=== PATIENT | male | born 1955 | race African-American/Black ===

== ENCOUNTER 2022-03-25 18:48 | Inpatient (IN) | payer MEDICARE, MEDICAID, SELFPAY ==
[2022-03-25] VITALS (13 sets, daily range): BP systolic 113–129; BP diastolic 86–98; PULSE 100–126; RESP 10–34; TEMP 36.4; O2SAT 95–100
--- NOTE | ~2022-03-25 | XR_ITS ---
EXAMINATION: XR abdomen NG/feed tube insert DATE: 03/27/2022 01:30 INDICATION: Nasogastric tube placement. TECHNIQUE: A supine view of the abdomen was obtained. COMPARISON: None. FINDINGS: The lower abdomen and right lateral aspect of the abdomen are excluded. The nasogastric tub e tip is in the stomach. IMPRESSION: 1. Nasogastric tube tip in the stomach. Reviewed, dictated and finalized at location A.
--- NOTE | ~2022-03-25 | XR_ITS ---
EXAMINATION: XR chest 1V portable Exam Date/Time: 03/25/2022 20:34 CDT HISTORY: dyspnea Comparison: None available. RESULT: Lines, tubes, and devices: None. Lungs and pleura: Clear. Cardiomediastinal silhouette: Enlarged heart. Other: No acute osseous or upper abdominal finding. IMPRESSION: Cardiomegaly. Reviewed, dictated and finalized at location K. IMPRESSION: Cardiomegaly.
--- NOTE | ~2022-03-25 | XR_ITS ---
EXAMINATION: XR chest 1V portable DATE: 04/04/2022 06:15 INDICATION: Respiratory failure. TECHNIQUE: A single frontal view of the chest was obtained. COMPARISON: Chest single view 04/03/2022 FINDINGS: The patient is rotated to his right. There are small pleural effusions. There are airspace opacities in all lung zones bilaterally with a perihilar and basilar predominance. No pneumothorax. C ardiomegaly is noted. The endotracheal tube tip is 5.7 cm above the nikita. The nasogastric tube tip is in the stomach. A right internal jugular central venous catheter is seen with tip at the superior cavoatrial junction. A right upper extremity peripherally inserted central venous catheter (PICC) is seen with tip in the right atrium. IMPRESSION: 1. Diffuse lung disease with worsening at right lung base, consistent with pulmonary edema versus pne umonia. 2. Small pleural effusions with worsening on the right. 3. Cardiomegaly. Reviewed, dictated and finalized at location A. IMPRESSION: 1. Diffuse lung disease with worsening at right lung base, consistent with pulm onary edema versus pneumonia. 2. Small pleural effusions with worsening on the right. 3. Cardiomegaly.
--- NOTE | ~2022-03-25 | XR_ITS ---
EXAMINATION: XR chest ET placement DATE: 03/27/2022 01:30 INDICATION: Intubation. TECHNIQUE: A single frontal view of the chest was obtained on 2 radiographs. COMPARISON: Chest single view 03/26/2022 FINDINGS: There are airspace opacities in all lung zones bilaterally, right worse than left. No pleur al effusion or pneumothorax. Left lateral costophrenic angle is excluded. Cardiomegaly is noted. The endotracheal tube tip is 3.2 cm above the nikita. IMPRESSION: 1. Worsened diffuse lung disease, consistent with pulmonary edema or less likely pneumonia. 2. Cardiomegaly. Reviewed, dictated and finalized at location A. IMPRESSION: 1. Worsened diffuse lung disease, consistent with pulmonary edema or less likel y pneumonia. 2. Cardiomegaly.
--- NOTE | ~2022-03-25 | XR_ITS ---
EXAMINATION: XR chest 1V portable Exam Date/Time: 03/26/2022 22:35 CDT HISTORY: sob Comparison: 03/25/2022. RESULT: Lines, tubes, and devices: None. Lungs and pleura: New, ill-defined diffuse reticular and patchy airspace opacities. Cardiomediastinal silhouette: Stable cardiomegaly. Other: No acute osseous or upper abdominal finding. IMPRESSION: Pulmonary opacities likely represent interstitial edema. Infection not excluded. Reviewed, dictated and finalized at location K. IMPRESSION: Pulmonary opacities likely represent interstitial edema. Infection not excluded .
--- NOTE | ~2022-03-25 | CT_ITS ---
EXAMINATION: CT diagnostic chest wo con DATE: 03/28/2022 12:12 INDICATION: Respiratory failure TECHNIQUE: Computed tomography (CT) of the chest was performed without intravenous contrast. The dose -length product (DLP) was 739.69 mGy-cm. Automated exposure control and iterative reconstruction tech nique were employed. COMPARISON: None FINDINGS: There are interstitial and airspace opacities throughout the lungs. More focal opacities ar e present in the lower lobes. There are small pleural effusions. No pneumothorax is identified. Cardi omegaly is noted. A right upper extremity PICC ends with its tip in the proximal right atrium. A naso gastric tube is followed as far as the stomach. The endotracheal tube is in adequate position. There is a stent in the left main coronary artery. There is mild bilateral hilar lymphadenopathy, likely re active. Diffuse edema is seen in the anterior chest wall, likely related to cardiopulmonary resuscita tion. There is mild thoracic spondylosis. IMPRESSION: 1. Diffuse lung disease with more focal airspace opacities seen in the lower lobes, consistent with p ulmonary edema and/or pneumonia. 2. Cardiomegaly. 3. Small pleural effusions. Reviewed, dictated and finalized at location A. IMPRESSION: 1. Diffuse lung disease with more focal airspace opacities seen in the lower lo bes, consistent with pulmonary edema and/or pneumonia. 2. Cardiomegaly. 3. Small pleural effusions.
--- NOTE | ~2022-03-25 | XR_ITS ---
EXAMINATION: XR chest 1V portable DATE: 04/06/2022 06:05 INDICATION: Respiratory failure. TECHNIQUE: A single frontal view of the chest was obtained. COMPARISON: Chest single view 04/05/2022 FINDINGS: There are small pleural effusions. There are airspace opacities in all lung zones bilateral ly with a lower lung predominance. No pneumothorax. Cardiac megaly is noted. The endotracheal tube ti p is 3.4 cm above the nikita. The nasogastric tube tip is beyond the inferior margin of the radiograp h, but at least to the stomach. A right internal jugular central venous catheter is seen with tip at the superior cavoatrial junction. A right upper extremity peripherally inserted central venous cathet er (PICC) is seen with tip at the superior cavoatrial junction. IMPRESSION: 1. Stable diffuse lung disease, consistent pulmonary edema versus pneumonia. 2. Small pleural effusions with worsening on the right. 3. Cardiomegaly. Reviewed, dictated and finalized at location A.
--- NOTE | ~2022-03-25 | CT_ITS ---
EXAMINATION: CT brain wo con DATE: 04/02/2022 12:39 INDICATION: Anoxic brain injury. TECHNIQUE: Computed tomography (CT) of the head was performed without intravenous contrast. The mA wa s adjusted according to patient size. Iterative reconstruction technique was employed. The dose-lengt h product was 605.33 mGy-cm. COMPARISON: Head CT 03/28/2022 FINDINGS: There are old lacunar infarcts in the left basal ganglia. There are scattered areas of low attenuation in the cerebral white matter. There is no intracranial hemorrhage, acute infarction, or a bnormal intracranial mass lesion. The ventricles are normal in size. There is mild mucosal thickening in the paranasal sinuses. There are trace bilateral mastoid effusions. The orbits are normal. IMPRESSION: 1. Old lacunar infarcts in the left basal ganglia. 2. Stable mild nonspecific cerebral white matter disease, which likely represents chronic small vesse l ischemic disease. Reviewed, dictated and finalized at location A. IMPRESSION: 1. Old lacunar infarcts in the left basal ganglia. 2. Stable mild nonspecific cerebral white matter disease, which likely represen ts chronic small vessel ischemic disease.
--- NOTE | ~2022-03-25 | XR_ITS ---
EXAMINATION: XR chest 1V portable DATE: 04/03/2022 05:55 INDICATION: Respiratory failure. TECHNIQUE: A single frontal view of the chest was obtained. COMPARISON: Chest single view 04/02/2022 FINDINGS: There are airspace opacities in the mid and lower lung zones with a perihilar and basilar p redominance. There is a small left pleural effusion. No pneumothorax. Cardiomegaly is noted. The endo tracheal tube tip is 7.3 cm above the nikita. The nasogastric tube tip is beyond the inferior margin of the radiograph, but at least to the stomach. A right upper extremity peripherally inserted central venous catheter (PICC) is seen with tip in the proximal right atrium. A right internal jugular centr al venous catheter is seen with tip at the superior cavoatrial junction. IMPRESSION: 1. Stable airspace opacities in the mid and lower lung zones, consistent with pulmonary edema versus pneumonia. 2. Small left pleural effusion. 3. Cardiomegaly. Reviewed, dictated and finalized at location A. IMPRESSION: 1. Stable airspace opacities in the mid and lower lung zones, consistent with p ulmonary edema versus pneumonia. 2. Small left pleural effusion. 3. Cardiomegaly.
--- NOTE | ~2022-03-25 | US_ITS ---
EXAMINATION: US renal BI DATE: 03/28/2022 17:00 INDICATION: Elevated creatinine TECHNIQUE: Multiple grayscale and Doppler ultrasound images of the kidneys were obtained. COMPARISON: None. FINDINGS: The right kidney measures 11.5 x 5.0 x 5.0 cm. The left kidney measures 12.4 x 5.8 x 5.7 cm . The kidneys demonstrate normal parenchymal echogenicity. There is no hydronephrosis. The bladder is decompressed by a Cortez catheter. Cholelithiasis is noted. IMPRESSION: 1. Normal kidneys without hydronephrosis. 2. Cholelithiasis noted. Reviewed, dictated and finalized at location A.
--- NOTE | ~2022-03-25 | XR_ITS ---
XR chest port-a-cath/central 03/30/2022 08:33 Indication: Dialysis catheter placement Procedure: AP portable chest Comparison: Comparison to multiple prior studies sequentially, with oldest reviewed study dated 03/28. Findings: Endotracheal tube tip 1.3 cm above the niikta. NG tube in the stomach. Interval placement o f right IJ large-bore catheter, tip in the SVC. PICC line tip in the SVC. Cardiomegaly with progressi on of diffuse bilateral airspace disease, likely edema. Small pleural effusions. No pneumothorax. Impression: 1: Interval progression of diffuse bilateral airspace disease, compatible with edema. 2: Small pleural effusions. Reviewed, dictated and finalized at location A. Impression: 1: Interval progression of diffuse bilateral airspace disease, compatible with edema. 2: Small pleural effusions.
--- NOTE | ~2022-03-25 | XR_ITS ---
EXAMINATION: XR chest 1V portable DATE: 04/07/2022 07:02 INDICATION: Respiratory failure TECHNIQUE: frontal view of the chest was obtained. COMPARISON: Chest radiograph dated 04/06/2022 FINDINGS: Endotracheal tube tip 7.4 cm above the nikita. Nasogastric tube extends below the left hemidiaphragm with distal tip collimated off the study. Right upper extremity peripherally inserted central venous catheter (PICC) and large bore right internal jugular central venous catheter, both with distal tips at the caudal superior vena cava. Improvement in opacities in the bilateral lower lung zones which includes small bilateral pleural eff usions and associated atelectasis. No pneumothorax. Cardiomegaly. IMPRESSION: 1. Decreasing opacities in bilateral lower lung zones which could represent improving atelectasis, pu lmonary edema, pneumonia or some combination thereof. 2. Small bilateral pleural effusions. 3. Cardiomegaly. Reviewed, dictated and finalized at location A. IMPRESSION: 1. Decreasing opacities in bilateral lower lung zones which could represent imp roving atelectasis, pulmonary edema, pneumonia or some combination thereof. 2. Small bilateral pleural effusions. 3. Cardiomegaly.
--- NOTE | ~2022-03-25 | XR_ITS ---
XR chest 1V portable 03/30/2022 06:01 Indication: Respiratory failure Procedure: AP portable chest Comparison: Comparison to multiple prior studies sequentially, with oldest reviewed study dated 03/27. Findings: Endotracheal tube tip 1.5 cm above the nikita. Cardiomegaly. There is pulmonary edema. Smal l left pleural effusion. NG tube tip in the stomach. PICC line tip in the SVC. No pneumothorax. Impression: 1: Cardiomegaly with mild interstitial edema. Reviewed, dictated and finalized at location A. Impression: 1: Cardiomegaly with mild interstitial edema.
--- NOTE | ~2022-03-25 | XR_ITS ---
EXAMINATION: XR chest 1V portable DATE: 03/29/2022 05:56 INDICATION: Respiratory failure. TECHNIQUE: A single frontal view of the chest was obtained on 2 radiographs. COMPARISON: Chest single view 03/28/2022, chest CT 03/28/2022 FINDINGS: There are airspace opacities in all left lung zones with a perihilar and left basilar predo minance. There are hazy airspace opacities in right lung. No pleural effusion or pneumothorax. Cardio megaly is noted. The endotracheal tube tip is 5.2 cm above the nikita. The nasogastric limits. A righ t upper extremity peripherally inserted central venous catheter (PICC) is seen with tip at the superi or cavoatrial junction. IMPRESSION: 1. Diffuse lung disease with improvement on the left, consistent with pulmonary edema versus pneumoni a. 2. Cardiomegaly. Reviewed, dictated and finalized at location A. IMPRESSION: 1. Diffuse lung disease with improvement on the left, consistent with pulmonary edema versus pneumonia. 2. Cardiomegaly.
--- NOTE | ~2022-03-25 | XR_ITS ---
EXAMINATION: XR chest 1V portable DATE: 04/01/2022 05:31 INDICATION: Respiratory failure. TECHNIQUE: A single frontal view of the chest was obtained. COMPARISON: Chest single view 03/31/2022, chest CT 03/28/2022 FINDINGS: There are airspace opacities in all lung zones bilaterally. There are small pleural effusio ns. No pneumothorax. Cardiomegaly is noted. The endotracheal tube tip is 1.4 cm above the nikita. The nasogastric tube tip is beyond the inferior margin of the radiograph, but at least to the stomach. A right internal jugular central venous catheter is seen with tip in the proximal right atrium. A righ t upper extremity peripherally inserted central venous catheter (PICC) is seen with tip at the superi or cavoatrial junction. IMPRESSION: 1. Diffuse lung disease with worsening at left lung base, consistent with pulmonary edema versus pneu monia. 2. Small pleural effusions. 3. Cardiomegaly. Reviewed, dictated and finalized at location A. IMPRESSION: 1. Diffuse lung disease with worsening at left lung base, consistent with pulmo nary edema versus pneumonia. 2. Small pleural effusions. 3. Cardiomegaly.
--- NOTE | ~2022-03-25 | XR_ITS ---
XR chest 1V portable 03/31/2022 06:14 Indication: Respiratory failure Procedure: AP portable chest Comparison: Comparison to multiple prior studies sequentially, with oldest reviewed study dated 03/28. Findings: Endotracheal tube tip 3.5 cm above the nikita. NG tube in the stomach. Right IJ central antonio ous catheter tip in the SVC. Pulmonary edema. Small left pleural effusion. No pneumothorax. Impression: 1: Cardiomegaly with unchanged pulmonary edema. Reviewed, dictated and finalized at location A. Impression: 1: Cardiomegaly with unchanged pulmonary edema.
--- NOTE | ~2022-03-25 | XR_ITS ---
EXAMINATION: XR chest PICC line DATE: 03/27/2022 08:44 INDICATION: Central line placement. TECHNIQUE: A single frontal view of the chest was obtained. COMPARISON: Chest single view at 1:07 AM FINDINGS: The lung bases are excluded. There are airspace opacities throughout the lungs bilaterally. No pleural effusion or pneumothorax. Cardiomegaly is noted. The endotracheal tube tip is 5.1 cm abov e the nikita. A right upper extremity peripherally inserted central venous catheter (PICC) is seen wi th tip at the superior cavoatrial junction. IMPRESSION: 1. PICC tip at the superior cavoatrial junction. 2. Diffuse lung disease, consistent with pulmonary edema versus pneumonia. 3. Cardiomegaly. Reviewed, dictated and finalized at location A.
--- NOTE | ~2022-03-25 | XR_ITS ---
EXAMINATION: XR chest 1V portable DATE: 04/02/2022 05:29 INDICATION: Infiltrates. TECHNIQUE: A single frontal view of the chest was obtained. COMPARISON: Chest single view 04/01/2022 FINDINGS: There are airspace opacities in all lung zones bilaterally. No pleural effusion or pneumoth orax. Cardiomegaly is noted. The endotracheal tube tip is 4.3 cm above the nikita. The nasogastric tu be tip is in the stomach. A right upper extremity peripherally inserted central venous catheter (PICC ) is seen with tip in the proximal right atrium. A right internal jugular central venous catheter is seen with tip in the proximal right atrium. IMPRESSION: 1. Stable diffuse lung disease, consistent with pulmonary edema versus pneumonia. 2. Cardiomegaly. Reviewed, dictated and finalized at location A. IMPRESSION: 1. Stable diffuse lung disease, consistent with pulmonary edema versus pneumoni a. 2. Cardiomegaly.
--- NOTE | ~2022-03-25 | XR_ITS ---
EXAMINATION: XR chest 1V portable DATE: 04/05/2022 05:53 INDICATION: Respiratory failure TECHNIQUE: frontal view of the chest was obtained. COMPARISON: Chest radiograph dated 04/04/2022 FINDINGS: Endotracheal tube tip 4.3 cm above the nikita. Large-bore right internal jugular central venous hari ter with distal tip near the superior cavoatrial junction. Nasogastric tube with proximal side-port i n the body of the stomach and distal tip collimated off the study. Right upper extremity peripherally inserted central venous catheter (PICC) tip at the caudal superior vena cava. Opacities in bilateral mid and lower lung zones with slight improvement in aeration at the lung bases . No pneumothorax. Cardiomegaly. IMPRESSION: 1. Interval improvement in likely small bilateral pleural effusions. 2. Persistent opacities in the bilateral mid and lower lung zones consistent with pulmonary edema asia sarah pneumonia. 3. Cardiomegaly. Reviewed, dictated and finalized at location A. IMPRESSION: 1. Interval improvement in likely small bilateral pleural effusions. 2. Persistent opacities in the bilateral mid and lower lung zones consistent wi th pulmonary edema versus pneumonia. 3. Cardiomegaly.
--- NOTE | ~2022-03-25 | XR_ITS ---
EXAMINATION: XR chest 1V portable DATE: 03/28/2022 05:23 INDICATION: Respiratory failure. TECHNIQUE: A single frontal view of the chest was obtained. COMPARISON: Chest single view 03/27/2022 FINDINGS: There are airspace opacities in all lung zones bilaterally, left worse than right. No pleur al effusion or pneumothorax. Cardiomegaly is noted. The endotracheal tube tip is 6.6 cm above the car carmelita. The nasogastric tube tip is beyond the inferior margin of the radiograph, but at least to the st omach. A right upper extremity peripherally inserted central venous catheter (PICC) is seen with tip at the superior cavoatrial junction. IMPRESSION: 1. Diffuse lung disease with improvement on the right, consistent with pulmonary edema versus pneumon ia. 2. Cardiomegaly. Reviewed, dictated and finalized at location A. IMPRESSION: 1. Diffuse lung disease with improvement on the right, consistent with pulmonar y edema versus pneumonia. 2. Cardiomegaly.
--- NOTE | ~2022-03-25 | XR_ITS ---
XR chest 1V portable DATE: 03/28/2022 09:23 INDICATION: Respiratory failure TECHNIQUE: Portable AP chest on 03/28/2022 at 0918 hours COMPARISON: 03/28/2022 portable AP chest at 0503 hours FINDINGS: ET tube tip is 6.4 cm above nikita; ideal range is 2-5 cm. Right upper extremity PIC catheter tip overlies superior cavoatrial area. NG tube is noted passing into the stomach. Cardiomegaly. Aortic arch calcification, aortic unfolding. There is pulmonary vascular congestion and redistribution. There is mild prominence of the minor fissure suggesting subpleural edema. There are bilateral predominantly central and lower lung zone infiltrates which may be due to pulmonary edema. Pneumonia or aspiration pneumonitis are not excluded. No pleural effusion or pneumothorax is evident. Aortic arch calcification, aortic unfolding. IMPRESSION: Congestive heart failure and probable pulmonary edema. Pneumonia is not excluded. ET tube 6.4 cm above nikita; ideal range is 2-5 cm. Right upper extremity PIC catheter tip near superior cavoatrial junction NG tube in stomach Reviewed, dictated and finalized at location B.
--- NOTE | ~2022-03-25 | CT_ITS ---
EXAMINATION: CT brain wo con INDICATION: Cardiac arrest COMPARISON: None TECHNIQUE: Standard unenhanced head CT. The dose-length product (DLP) was 605.33 mGy-cm. The mA was a djusted according to patient size. Iterative reconstruction technique was employed. FINDINGS: There is no acute intraparenchymal hemorrhage. No evidence of mass lesion. There is subtle area of low attenuation in the medial aspect of the left parietal lobe. 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 There is mild periventricular and subcortical hypodensity probably related to sm all vessel ischemic disease. There is mild prominence of the sulci and ventricles related to cerebral atrophy. Intracranial calcified cerebral atherosclerosis is noted. There are no extra-axial collecti ons. There is no mass effect or midline shift. The orbits and soft tissues are unremarkable. There is mild mucosal thickening of the paranasal sinuses. IMPRESSION: 1. Areas of prior infarction with subtle area of low attenuation in the medial aspect of the left par ietal lobe which could reflect an early infarct. 2. Age related findings. Reviewed, dictated and finalized at location A. IMPRESSION: 1. Areas of prior infarction with subtle area of low attenuation in the medial aspect of the left parietal lobe which could reflect an early infarct. 2. Age related findings.
--- NOTE | 2022-03-25 19:00 | ECG_ITS ---
Measurements Intervals Hunter Rate: 125 P: CO: 0 QRS: -56 QRSD: 136 T: 108 QT: 325 QTc: 470 Interpretive Statements ATRIAL FLUTTER/TACHYCARDIA WITH RAPID VENTRICULAR RESPONSE LEFT AXIS DEVIATION INTRAVENTRICULAR CONDUCTION DELAY BORDERLINE R WAVE PROGRESSION, ANTERIOR LEADS VOLTAGE CRITERIA FOR LVH INFERIOR INFARCT, AGE INDETERMINATE ST-T WAVE ABNORMALITY IN HIGH LATERAL LEADS- CONSIDER ISCHEMIA ABNORMAL ECG NO PREVIOUS ECG AVAILABLE FOR COMPARISON Electronically Signed On 03-25-2022 20:46:54 CDT by Carlitos Leos D.O.
--- NOTE | 2022-03-25 19:36 | ED.GENADULT ---
HPI - General Adult General Chief complaint: Shortness of Breath/Dyspnea Stated complaint: SOB, AFIB/RVR Time Seen by Provider: 03/25/22 18:56 History of Present Illness HPI narrative: This is a 66-year-old male with history of coronary artery disease presenting to ED for palpitations. Patient says that he was riding his bike up a hill when suddenly he started having palpitations out and diaphoretic, and became short of breath. At that time he said under a tree 3 years since her here and rested in which she felt better. At no point did he have chest pain. and EMS arrived to evaluate the patient today was found have a heart rate around proximally 250. On route to the hospital he self converted back to a rate of 120. At this time the patient is feeling better and has no complaints. Related Data Allergies Allergy/AdvReac Type Severity Reaction Status Date / Time No Known Allergies Allergy Verified 03/25/22 19:02 Review of Systems Review of Systems: CONSTITUTIONAL: Denies night sweats. EYES: No eye pain ENT: Denies rhinorrhea CARDIOVASCULAR: Denies palpitations RESPIRATORY: Denies hemoptysis GASTROINTESTINAL: Denies hematemesis GENITOURINARY: Denies hematuria. SKIN: Denies rash MUSCULOSKELETAL: Denies myalgia. NEUROLOGIC: Denies weakness. PSYCHIATRIC: Denies delusions Exam Narrative: APPEARANCE: No apparent distress. The patient is awake during the interview. Head atraumatic. EYES: PERRLA/EOMI, NOSE: Normal no drainage NECK: Supple, Trachea midline RESPIRATORY: CTAB, No increased work of breathing. CARDIOVASCULAR: S1S2 appreciated , tachycardic, no peripheral edema ABDOMINAL: Soft, nontender, nondistended, MUSCULOSKELETAl: No obvious deformities NEURO: Alert. Moving 4/4 extremities SKIN:: Warm, dry. Normal color PSYCHIATRIC: Normal affect Course Vital Signs Vital signs: Vital Signs Temperature 97.5 F L 03/25/22 18:47 Pulse Rate 125 H 03/25/22 18:47 Respiratory Rate 18 03/25/22 18:47 Blood Pressure 118/92 H 03/25/22 18:47 Pulse Oximetry 100 03/25/22 18:47 Oxygen Delivery Room Air 03/25/22 18:47 Temperature 97.5 F L 03/25/22 18:47 Pulse Rate 102 H 03/25/22 23:36 Respiratory Rate 20 03/25/22 20:31 Blood Pressure 119/92 H 03/25/22 23:36 Pulse Oximetry 98 03/25/22 20:31 Oxygen Delivery Room Air 03/25/22 18:47 Medical Decision Making MDM Narrative Medical decision making narrative: this is a 66-year-old male presents the ED after an episode of palpitations with difficulty breathing. His EKG from EMS was interpreted as follows. EKG interpretation: Rhythm: Supraventricular Tachycardia, Rate 248 , Wolf -Left, NV - Not visible, QRS Wide, QTC indeterminatel, T waves -indeterminate , ST Segments -Indeterminate Final interpretations: SVT with aberrant conduction sinus rhythm the paper was hypotensive with blood pressure of 88/54. The patient self converted to: EKG interpretation: Rhythm A-flutter, Rate 125, Wolf -leftward, NV -[normal], QRS wide, QTC 470ms, T waves - T-wave inversions in the high lateral leads, ST Segments - [Negative for concerning elevations] Final interpretations: 2:1 A-flutter patient's laboratory workup was significant for an elevated BNP at 2280. The patient does not have any clinical signs of heart failure at this time. His troponin was negative. The rest of his lab work was within acceptable limits. COVID was negative. Patient was given 10 mg of IV diltiazem and monitored. His heart rate did not respond. He is given another 10 mg IV diltiazem without response. My interpretation residential monitor this point is still 2-1 a flutter with a rate of 120. Patient was started on a Cardizem drip. Patient will be admitted to the hospital for management of his a flutter and evaluation by Cardiology. Vital Signs Vital Signs: Vital Signs Temperature 97.5 F L 03/25/22 18:47 Pulse Rate 125 H 03/25/22 18:47 Respiratory Rate 18
[2022-03-25 20:07] LABS: SARS-CoV-2 RNA PCR Negative
[2022-03-25 20:17] LABS: Basophils Percent Auto 0.6 % (0.2-1.2); Eosinophils Absolute Auto 0.2 K/mm3 (0-0.3); Eosinophils Percent Auto 2.6 % (0-4.4); Hemoglobin 12.6 g/dL (14.0-18.0); Immature Granulocyte Absolute 0.03 K/mm3 (0.00-0.031); Immature Granulocyte Percent A 0.5 % (0-0.5); Lymphocytes Absolute Auto 0.86 K/mm3 (0.9-3.2); Lymphocytes Percent Auto 13.2 % (18.3-44.2); Mean Corpuscular HGB Conc 33.2 g/dl (32-36); Mean Corpuscular Hemoglobin 25.5 pg (26-34); Mean Corpuscular Volume 76.9 fl (80-100); Mean Platelet Volume 9.8 fl (7.4-10.4); Monocytes Absolute Auto 0.6 K/mm3 (0.1-0.6); Monocytes Percent Auto 9.1 % (2.6-8.5); Neutrophils Absolute Auto 4.8 K/mm3 (1.3-6.7); Platelet Count Result 230 k/mm3 (150-375); Red Blood Count 4.94 M/mm3 (4.6-6.20); Red Cell Distribution Width 16.6 % (11.5-14.5); White Blood Count 6.5 K/mm3 (4.5-10.0)
[2022-03-25 20:20] LABS: Lactic Acid Reflex 1.1 mmol/L (0.7-2.0)
[2022-03-25 20:22] LABS: Alanine Aminotransferase 81 U/L (6-50); Albumin Level 3.1 g/dL (3.5-5.1); Alkaline Phosphatase 81 U/L (38-126); Anion Gap 9 mmol/L (8-16); Aspartate Amino Transferase 49 U/L (17-59); Bilirubin,Total 0.8 mg/dL (0.2-1.3); Blood Urea Nitrogen 15 mg/dL (9-20); Calcium 7.5 mg/dL (8.4-10.2); Carbon Dioxide 24 mmol/L (22-30); Chloride 107 mmol/L (98-107); Estimated Glomerular Filt Rate > 60; Glucose 118 mg/dL (65-110); Magnesium 1.8 mg/dL (1.6-2.3); Potassium 3.4 mmol/L (3.4-5.0); Sodium 140 mmol/L (137-145)
[2022-03-25 20:24] LABS: INR 2.7
[2022-03-25 20:25] LABS: Partial Thromboplastin Time 35.2 SECONDS (22.3-36.8)
[2022-03-25 20:29] LABS: NT Pro B Type Natriuretic Pept 2280 pg/mL (5-100)
[2022-03-25 20:33] LABS: Troponin I 0.015 ng/mL (0.000-0.034)
[2022-03-25] MEDS: dilTIAZem HCl INJ 25 MG/5 ML VIAL 10 MG IV PUSH ×2 (20:52→21:56)
[2022-03-25] MEDS: SODIUM CHLORIDE 0.9% IV 1,000 ML 999 ML IV CONT ×2 (20:52→22:05)
[2022-03-25] MEDS: dilTIAZem 100 MG/100 ML 100 MG/100 ML BAG IV CONT (23:36)
[2022-03-25 23:44] LABS: Troponin I 0.031 ng/mL (0.000-0.034)
--- NOTE | 2022-03-25 23:54 | PM.IMHP ---
H&P: HPI History of Present Illness Date/Time: 03/25/22 23:54 Chief Complaint: Chest discomfort. Narrative: This is a 66-year-old male with past medical history significant for hypertension, systolic heart failure, coronary artery disease, former smoker patient was brought to the emergency room after having an episode of near syncope while he was riding his bike and failed fatigue tired short of breath and with chest discomfort and lightheaded as well EMS was called and he was found to have a heart rate in the 200 patient was spontaneously converted to a slower heart rate which showed atrial fibrillation/flutter this the rhythm upon patient's arrival to emergency room patient received a bolus Cardizem and his rhythm was better controlled was not started on Cardizem drip and admitted to IMU. Patient had been in his usual state of health up until this. Denies any fevers, chills rigors, cough ,sputum production,PND ,orthopnea, leg swelling, pedal swelling. Preliminary workup was significant for EKG with atrial flutter with rapid ventricular response a chest x-ray showed cardiomegaly. Patient is been admitted for further evaluation management and treatment. Review of Systems Review of Systems: Shortness of breath, fatigue, chest discomfort. Constitutional: Constitutional: Denies chills, Denies fever(s), Denies malaise, Denies night sweats, Denies poor appetite, Denies weakness and Reports weight gain Eyes: Eyes: Denies change in vision ENT: Denies dysphagia, Denies vertigo, Denies dizziness and Denies odynophagia Cardiovascular: Cardiovascular: Denies chest pain, Denies pedal edema, Denies claudication, Reports lightheadedness, Denies radiating jaw, neck or arm pain, Reports dyspnea and Reports dyspnea on exertion Respiratory: Respiratory: Denies chest congestion, Denies cough, Denies excessive phlegm production, Denies pain on inspiration, Denies dyspnea and Denies dyspnea on exertion Gastrointestinal: Gastrointestinal: Denies abdominal pain, Denies dyspepsia, Denies heartburn, Denies nausea and Denies vomiting Genitourinary: Genitourinary: Reports no additional male genitourinary complaints, Reports as per HPI and Denies dysuria Musculoskeletal: Musculoskeletal: Denies back pain and Denies joint swelling Integumentary/Breasts: Skin/Breast: Denies rash Neurologic: Denies vertigo, Denies dizziness, Denies syncope, Denies focal weakness and Denies Sensory deficit (Neuro) Psychiatric: Psychiatric: Reports no additional psychiatric complaints and Reports as per HPI Endocrine: Endocrine: Denies cold intolerance, Denies flushing, Denies heat intolerance, Denies polyphagia, Denies polydipsia and Denies palpitations Hematologic/Lymphatic: Hematologic/Lymphatic: Reports no additional hematologic/lymphatic complaints and Reports as per HPI Allergic/Immunologic: Allergic/Immunologic: Reports no additional allergic/immunologic complaints and Reports as per HPI PMFSH Past Medical History Medical History (Updated 03/27/22 @ 02:15 by Suzanne Bunn MD) CAD (coronary artery disease) CHF (congestive heart failure) History of stroke Family History Family History (Updated 03/26/22 @ 03:10 by Aby Vanegas RN) Mother Cerebrovascular accident Congestive heart failure Hypertension Social History Social History (Updated 03/26/22 @ 17:33 by Karlee Coats MD) Social History: 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 Single. Has 3 children, 1 in [place] into in [place]. Lives with is sister. Smoking packs per day: 0.5 Smoking cigarettes per day: 10.0 Years smoked: 17 Smoking pack-years: 8.50 Smoking status: Former smoker Tobacco type: cigarettes Second hand tobacco smoke exposure: Yes Alcohol intake: former Substance use: former Substance use type: crack/cocaine Last use: 2010 Spiritual care concerns: No Meds Home Medications and Allergies Home Medications Medica
[2022-03-26] VITALS (32 sets, daily range): BP systolic 96–145; BP diastolic 64–99; PULSE 87–156; RESP 15–31; TEMP 36.1–36.9; O2SAT 91–100; BMI 32.4
--- NOTE | 2022-03-26 | ECHO_ITS ---
Patient Info Name: Rod Joyce Age: 66 years : 1955 Gender: Male Ht: 69 in Wt: 222 lbs BSA: 2.25 m2 HR: 92 bpm BP: 98 / 73 mmHg Heart Rhythm: Atrial Fibrillation Exam Date: 03/26/2022 4:42 PM Exam Location: [facility] Patient Status: Outpatient Admit Date: 03/26/2022 Staff Ordering Physician: Del Gonsales MD Head Gauge Unit Operator: Micah Hope RDCS Attending Provider: Suzanne Bunn MD Exam Type: CA echo doppler color flow Study Info Indications - congestive heart failure - atrial fibrillation Complete two-dimensional, color flow and Doppler transthoracic echocardiogram is performed with contrast to opacify the left ventricle and to improve the deliniation of the left ventricle endocardial borders. Summary 1. Left ventricular systolic function is severely reduced, estimated at <15%. 2. Right ventricular systolic function is reduced. 3. Left atrial chamber dimension is severely enlarged. 4. There is severe mitral valve regurgitation. Left Ventricle There is severe global hypokinesis with akinesis of the apex. Left ventricular chamber dimension is severely enlarged. Left ventricular systolic function is severely reduced, estimated at <15%. There is no increased left ventricular wall thickness. There is no thrombus visualized in the left ventricle. Right Ventricle Right ventricular chamber dimension is normal. Right ventricular systolic function is reduced. Left Atria Left atrial chamber dimension is severely enlarged. Right Atria Right atrial chamber dimension is mildly enlarged. Aortic Valve The aortic valve is trileaflet. There is no aortic valve stenosis. There is mild aortic valve regurgitation. Pulmonic Valve The pulmonic valve is not well visualized. There is trace pulmonic regurgitation. Mitral Valve There is no mitral valve stenosis. There is severe mitral valve regurgitation. Tricuspid Valve The tricuspid valve leaflets are not well visualized. There is moderate tricuspid valve regurgitation. Pericardium/Pleural There is no pericardial effusion. Inferior Vena Cava Dilated inferior vena cava with no collapse upon inspiration consistent with Empty right atrial pressure, Empty. Aorta The aortic root size at the sinus of Valsalva is normal. The prox ascending aorta size is mildly dilated. Left Ventricular Outflow Tract Name Value Normal LVOT 2D LVOT Diameter 2.1 cm LVOT Doppler LVOT Peak Gradient 3 mmHg LVOT Mean Gradient 2 mmHg LVOT VTI 10 cm LVOT VTI/AV VTI Ratio 0.7 LVOT Stroke Volume 35 ml LVOT CO 4.3 l/min LVOT CI 1.9 l/min/m2 Mitral Valve Name Value Normal MV Doppler
[2022-03-26 00:45] LABS: Glucose Point of Care 98 mg/dl (65-105)
--- NOTE | 2022-03-26 03:38 | PC.NURSE ---
This patient, Rod Joyce, was admitted to IMU Room 201-01. Patient/family oriented to hospital policies and general routines including ID bracelet, bed and alarms, visiting hours, pain management, procedures, bathroom and other care routines, personal items, smoking policy, room service/diet, and visiting hours. Information on how to activate the Rapid Response Team has been discussed. Patient/Family are encouraged to report perceived risks to care and to ask questions if they do not understand what they are told or what they should do.
[2022-03-26] MEDS: dilTIAZem 100 MG/100 ML 100 MG/100 ML BAG 15 MG IV CONT ×2 (08:43→17:05)
--- NOTE | 2022-03-26 13:33 | PM.IMPN ---
Progress Note: A&P Assessment and Plan (1) Atrial flutter: Code(s): I48.92 - Unspecified atrial flutter Status: Acute (2) JANIE (acute kidney injury): Code(s): N17.9 - Acute kidney failure, unspecified Status: Acute (3) CAD (coronary artery disease): Code(s): I25.10 - Atherosclerotic heart disease of [place] coronary artery without angina pectoris Status: Acute (4) CHF (congestive heart failure): Code(s): I50.9 - Heart failure, unspecified Status: Acute (5) Microcytic anemia: Code(s): D50.9 - Iron deficiency anemia, unspecified Status: Acute Plan On admission, patient was complaining of palpitations. EKG showed atrial flutter with a rate of 125. He did have ST T wave changes in high lateral leads. Troponins are negative X2. BNP is 2280. Chest x-ray was clear but did show cardiomegaly. He does have a history of heart failure but no echo available here. Patient is on diltiazem at 15 mg an hour with reasonably well controlled heart rate but patient's blood pressure is low. Patient is compliant with anticoagulation. He may need cardioversion. We will consult Cardiology further evaluation. Resume Coumadin. Resume Lipitor and Plavix. Will hold his Coreg, Lasix and hydralazine at this time. He does take Tradjenta but this could be related to his heart failure and not diabetes. 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 Will check TSH. Daily INR. Check Echo. Subjective Date/time seen: 03/26/22 13:33 Interval history: 66yo male with CAD, pAFib and CHF here for palpitations. Patient has a history of coronary disease with stent placement in 2019. He was found to have what sounds like atrial fibrillation with associated heart failure symptoms. He underwent cardioversion in 2020. He denies having palpitations prior to this admission. No complaints of chest pain shortness of breath. Patient is on Coumadin at home at 5 mg. He feels well today. No complaints. His customer quality engineer is Dr Dixon in [place]. Patient believes he has sickle cell trait. Exam Narrative: AF 97.8 98/73 109 22 97% ra Gen - NARD standing at the side of the bed Chest - CTA bilaterally, nml RR CV - irregularly irregular. Tele showing AFib/flutter with RVR at times Abd - Soft, NT/ND, Positive BS Ext - No pedal edema Psych - Nml mood and affect Skin - Warm and dry Objective Data Vital Signs Vital Signs: Vital Signs - 24 hr 03/25/22 18:47 03/25/22 19:01 03/25/22 19:16 Temperature 97.5 F L Pulse Rate 125 H 116 H 117 H Respiratory Rate 18 18 10 L Blood Pressure 118/92 H 119/90 123/97 H Pulse Oximetry 100 97 97 Oxygen Delivery Room Air 03/25/22 20:01 03/25/22 20:31 03/25/22 23:36 Temperature Pulse Rate 114 H 123 H 102 H Respiratory Rate 16 20 Blood Pressure 129/86 115/98 H 119/92 H Pulse Oximetry 96 98 Oxygen Delivery 03/25/22 21:45 03/25/22 22:06 03/25/22 22:18 Temperature Pulse Rate 112 H 100 119 H Respiratory Rate 23 H 26 H 30 H Blood Pressure Pulse Oximetry 95 97 Oxygen Delivery 03/25/22 22:31 03/25/22 22:45 03/25/22 23:05 Temperature Pulse Rate 126 H 120 H 114 H Respiratory Rate 34 H 24 H 28 H Blood Pressure 113/94 H Pulse Oximetry Oxygen Delivery 03/25/22 23:30 03/26/22 00:46 03/26/22 02:15 Temperature Pulse Rate 113 H 102 H 115 H Respiratory Rate 15 27 H 26 H Blood Pressure 126/90 Pulse Oximetry 97 95 96 Oxygen Delivery 03/26/22 02:27 03/26/22 01:00 03/26/22 02:32 Temperature Pulse Rate 123 H 122 H 125 H Respiratory Rate 15 Blood Pressure 123/78 128/95 H 113/91 H Pulse Oximetry 96 Oxygen Delivery 03/26/22 02:58 03/26/22 02:56 03/26/22 03:00 Temperature 97.0 F L Pulse Rate 118 H 117 H Respiratory Rate 18 Blood Pressure 110/89 Pulse Oximetry 97 Oxygen Delivery Room Air 03/26/22 04:00 03/26/22 04:00 03/26/22 04:00 Temperature 98.
[2022-03-26 14:32] LABS: Anion Gap 10 mmol/L (8-16); Blood Urea Nitrogen 16 mg/dL (9-20); Calcium 7.9 mg/dL (8.4-10.2); Carbon Dioxide 22 mmol/L (22-30); Chloride 108 mmol/L (98-107); Estimated CRCL calculation 59 ml/min; Estimated Glomerular Filt Rate > 60; Glucose 126 mg/dL (65-110); Magnesium 2.1 mg/dL (1.6-2.3); Potassium 3.8 mmol/L (3.4-5.0); Sodium 140 mmol/L (137-145)
[2022-03-26 14:39] LABS: INR 2.3; Prothrombin Time 24.9 Seconds (11.1-14.7)
[2022-03-26 15:24] LABS: Iron 65 ug/dL (49-181)
[2022-03-26 15:34] LABS: Percent Iron Saturation 22 % (20-50)
--- NOTE | 2022-03-26 16:34 | PM.CNCAR ---
Assessment and Plan Assessment and plan (1) Tachycardia: Code(s): R00.0 - Tachycardia, unspecified Status: Acute Assessment and Plan: Patient found to have a somewhat wide complex tachycardia in the field, rate 248 beats per minute. Most likely an atrial flutter although ventricular tachycardia cannot be completely excluded. He was remarkably stable with this rhythm although hypotensive. Will likely discuss w/ EP (2) Atrial flutter: Code(s): I48.92 - Unspecified atrial flutter Status: Acute Assessment and Plan: Atrial flutter RVR, heart rate in the 120s. Has been chronically anticoagulated with warfarin, therapeutic INR, states compliance Change Cardizem to amiodarone Will need to reduce the warfarin dose Cardioversion tomorrow if the patient does not pharmacologically convert. (3) Acute on chronic systolic CHF (congestive heart failure): Code(s): I50.23 - Acute on chronic systolic (congestive) heart failure Status: Acute Assessment and Plan: Patient is developed acute systolic CHF, probably acute on chronic, aggravated by a flutter RVR. Start IV furosemide 40 mg IV push b.i.d. (4) Cardiomyopathy: Code(s): I42.9 - Cardiomyopathy, unspecified Status: Acute Assessment and Plan: Preliminary echo report suggests severe cardiomyopathy. Nnot sure if this is chronic or acute due to the extremely rapid heart rate the patient experienced yesterday and left ventricular stunning. Will see if I can find any old records, and/or discussed with Dr. Boogie tomorrow (5) Mitral regurgitation: Code(s): I34.0 - Nonrheumatic mitral (valve) insufficiency Status: Acute Assessment and Plan: Preliminary echo report suggests significant mitral regurgitation (6) CAD (coronary artery disease): Code(s): I25.10 - Atherosclerotic heart disease of [place] coronary artery without angina pectoris Status: Acute Assessment and Plan: History of CAD and stent in 2019, stable with no angina, even with a heart rate near 250 beats per minute. Minimal troponin spill with this episode, ACS unlikely. History of Present Illness History of Present Illness Consult date/time: 03/26/22 16:34 Reason For Visit: A-Flutter with RVR Narrative: Rod Joyce is a 66-year-old male whom I was asked to see at the request of Dr. Gonsales for my advice and opinion regarding his arrhythmia/atrial flutter in consultation. The patient is normally followed by Dr. Boogie at [facility], in [place]. He was last seen about a month ago, stable. He has a history of a stent in 2019 and in 2020 he had a cardioversion for AFib (?irregular heartbeat). He has been chronically anticoagulated with warfarin and has done well. He denies any history of <del>a</del> weak heart muscle, but may have had CHF at the time of his stent and cardioversion. He has had no angina or shortness of breath. He rides his bike regularly to the store and back, a couple blocks, with no problems. Admits to no some noncompliance with his furosemide, sometimes taking it once a day or skipping a day or 2. However he states he has been very compliant with all of his other medications. Yesterday he was riding his bike to [employer] and trying to get to the top of the hill, then suddenly developed shortness of breath and diaphoresis with some nausea and lightheadedness. He had no chest pain pressure or tightness. He walked a few paces to sit in the shade then laid down an asked a [employer] employee to call 911. On EMS arrival his heart rate was 220-250 be p.m. blood pressure 86/59 and O2 sat 99%. He was able to walk 20 ft to the ambulance and sit inside. EKG as below showed a somewhat wide complex tachycardia with a heart rate of 248. After placing an IV the patient converted to a heart rate of 120-150, which appears to be in atrial flutter. He was ad
[2022-03-26] MEDS: PERFLUTREN LIPID MICROSPHERES 1.5 ML VIAL DILUTED TO 10 ML TOTAL VOLUME IV PUSH (16:45)
--- NOTE | 2022-03-26 16:46 | IVDEFINITY ---
Prior to administration of IV Definity the patient was educated on the risks and benefits of the imaging enhancing agent including potential adverse side effects. The patient verbalized understanding. Allergies were verified. No exclusion criteria were identified and at least one of the following inclusion criteria were met: 1) physician request, 2) patient technically difficult to image (per the [place] [employer]ocardi[employer] guidelines of two or more segments not discernable within the apical view), or 3) questionable left ventricular function. ?
[2022-03-26] MEDS: AMIODARONE 150 MG/D5W 100 ML 150 MG/100 ML BAG 600 MG IV CONT ×2 (18:11→23:37)
[2022-03-26] MEDS: FUROSEMIDE INJ 40 MG/4 ML VIAL IV PUSH (18:11)
[2022-03-26] MEDS: AMIODARONE 360 MG/D5W 200 ML 360 MG/200 ML BAG 33.33 MG IV CONT (18:13)
[2022-03-26] MEDS: ALBUTEROL SULFATE NEB 2.5 MG/3 ML INH INHALATION (22:55)
[2022-03-26] MEDS: IPRATROPIUM BR 0.02% INH SOLN 0.5 MG/2.5 ML VIAL INHALATION (22:55)
[2022-03-26] MEDS: METOPROLOL TARTRATE INJ 5 MG/5 ML VIAL IV PUSH ×2 (23:38→23:51)
[2022-03-26] MEDS: ATORVASTATIN 40 MG TABLET 80 MG PO (23:41)
[2022-03-26] MEDS: WARFARIN (*PBKC) 5 MG TABLET PO (23:41)
[2022-03-27] VITALS (77 sets, daily range): BP systolic 70–144; BP diastolic 40–102; PULSE 55–177; RESP 24–35; TEMP 35.8–38.4; O2SAT 77–98; BMI 34.2
[2022-03-27] MEDS: MORPHINE SULFATE (*CRX) 2 MG/ML INJ 1 MG IV PUSH
[2022-03-27] MEDS: AMIODARONE 360 MG/D5W 200 ML 360 MG/200 ML BAG 33.33 MG IV CONT ×3 (00:04→07:46)
[2022-03-27] MEDS: MORPHINE SULFATE (*CRX) 2 MG/ML INJ IV PUSH (00:05)
[2022-03-27] MEDS: FUROSEMIDE INJ 40 MG/4 ML VIAL IV PUSH (00:05)
[2022-03-27] MEDS: LORazepam INJ (*CRX) 2 MG/ML VIAL 1 MG IV PUSH (00:06)
[2022-03-27] MEDS: BUMETANIDE INJ 1 MG/4 ML VIAL 2.5 MG IV PUSH (00:25)
[2022-03-27 00:33] LABS: Glucose Point of Care 215 mg/dl (65-105)
[2022-03-27 00:35] LABS: Alveolar/Arterial O2 Gradient 429.3 mmHg; Fractional Inspired Oxygen 100 %; Methemoglobin ABG 0.4 %THb (0-1.5); Modified Allen's Test Pass; Oxygen Content ABG 21.8 %vol (16.0-22.0); Oxygen Saturation ABG 99.6 % (95.0-100.0); Oxyhemoglobin 98.5 % THb (90.0-100.0); PCO2 ABG 28.1 mmHg (35.0-45.0); PO2 ABG 255.6 mmHg (80.0-100.0); PO2 FiO2 Ratio Arterial Blood 2.56 %; Reduced Hemoglobin 1.1 %THb (0-5.0); Site Drawn LEFT RADIAL; Total Hemoglobin 15.3 g/dL (12.0-18.0); pH ABG 7.345 (7.350-7.450)
[2022-03-27 00:36] LABS: Device NON-INVASIVE VENT; Non-Invasive Expiratory Pressure 8 CMH2O; Non-Invasive Inspiratory Pressure 12 CMH2O; Non-Invasive Vent Rate 20 /MIN
--- NOTE | 2022-03-27 00:47 | PC.NURSE ---
pt progressed to eunice arrest see code sheet
[2022-03-27] MEDS: CALCIUM CHLORIDE 1,000 MG/10 ML SYRINGE 1000 MG (00:50)
[2022-03-27] MEDS: SODIUM BICARBONATE 8.4% 50 MEQ/50 ML SYRINGE (00:55)
--- NOTE | 2022-03-27 01:12 | ECG_ITS ---
Measurements Intervals [place] Rate: 124 P: [place]: 0 QRS: -64 QRSD: 186 T: 95 QT: 374 QTc: 539 Interpretive Statements ATRIAL FLUTTER/TACHYCARDIA WITH RAPID VENTRICULA RESPONSE LEFT BUNDLE BRANCH BLOCK BASELINE ARTIFACT- I, II, III, AVR, AVL, AVF, V1-V3 ABNORMAL ECG COMPARED TO ECG 03/25/2022 18:55:38 NO SIGNIFICANT CHANGES Electronically Signed On 03-29-2022 11:39:42 CDT by Carlitos Leos D.O.
[2022-03-27] MEDS: MIDAZOLAM 100MG/NS 100ML(*CRX) 100 MG/100 ML BAG IV CONT (02:10)
[2022-03-27] MEDS: FENTANYL 2,500MCG/NS250ML(*CRX 2,500 MCG/250 ML BAG 10 MCG IV CONT (02:10)
--- NOTE | 2022-03-27 02:16 | PM.CCN ---
Critical Care Event Note Summary Code activated: Yes Narrative: This case had a high probability of a clinically significant, sudden, or life threatening deterioration of this patient's condition which required my full and direct attention, intervention and personal management. A rapid response was called to patient's room after he became severely distressed upon arrival to the room patient was in severe respiratory distress BiPAP patient restless using accessory muscles. Objective: Severe respiratory distress use of accessory muscles on BiPAP, restless. Subjective: Patient moaning and groaning. Air hunger. General: Patient in upright position in bed BiPAP on severe respiratory distress. HEENT: Normocephalic atraumatic, no JVD supple, PERRLA, EOM intact. Respiratory: Crackles throughout Cardiovascular: S1-S2 heard Abdomen: Protuberant, no hepatosplenomegaly. Central nervous system: Awake alert restless thrashing about Extremities: No edema Assessment and plan 1. Acute hypoxic respiratory failure/flash pulmonary edema: Patient placed on ventilator support, received Lasix 40 mg IV push times once, Bumex 2 mg IV push times once. Critical care time: 135 - 164 mins
--- NOTE | 2022-03-27 02:17 | P.PCNBED_ITS ---
Procedures Intubation Intubation Date: 03/27/22 Intubation Time: 00:45 Consent: Emergent A pre-procedural Time-Out was completed immediately before starting the procedure and confirmed: Patient Identification, Site, Procedure, Patient Positi on and the Availability of Requisite Equipment: Yes Sedative: versed Mg given: 4 Laryngoscope: fiber optic video scope Assist device used: fiber optic device ET tube size: 8 Tube secured depth (cm): 26 Tube secured location: lips Tube placement confirmation: visualized tube passing through cords, equal breath sounds bilaterally, no breath sounds over epigastrium and confirmation by capnometry Patient tolerated procedure: well Intubation complications: none
--- NOTE | 2022-03-27 02:17 | PDCODEBLUE ---
Code Blue Note Code Blue Note Time Arrived at Code Blue: 0050 Initial Rhythm on Arrival: PEA Airway Management: Pt intubated during resuscitation Chest Compressions: in progres Result of Code Blue: ICU patien Cardiac Rhythm Post Code: Patient was coded for approximately 45-50 minutes several times with ROSC every time received epinephrine calcium chloride bicarb. Wide complex rhythm no discernible P waves Code Blue Summary: Patient had just arrived to ICU in preparation for intubation.
[2022-03-27] MEDS: ROCURONIUM BROMIDE 50 MG/5 ML VIAL IV PUSH (02:20)
[2022-03-27 02:35] LABS: pH ABG 7.104 (7.350-7.450)
[2022-03-27 02:36] LABS: Base Excess ABG -10.1 mEq/l (+/-2.0); HCO3 ABG 20.8 mEq/l (22.0-26.0); PCO2 ABG 67.8 mmHg (35.0-45.0); PO2 ABG 57.2 mmHg (80.0-100.0)
[2022-03-27 02:37] LABS: Oxygen Content ABG 16.1 %vol (16.0-22.0); Oxygen Saturation ABG 78.3 % (95.0-100.0); Total Hemoglobin 15.6 g/dL (12.0-18.0)
[2022-03-27 02:38] LABS: Carboxyhemoglobin 0.1 % THb (0-2.0); Device VENTILATOR; Fractional Inspired Oxygen 100 %; Methemoglobin ABG 0.6 %THb (0-1.5); Modified Allen's Test Pass; Oxyhemoglobin 73.2 % THb (90.0-100.0); PO2 FiO2 Ratio Arterial Blood 0.57 %; Reduced Hemoglobin 26.1 %THb (0-5.0); Site Drawn LEFT RADIAL
[2022-03-27 02:39] LABS: Arterial Blood Gas Ventilator rate 18 /MIN
[2022-03-27 02:40] LABS: Arterial Blood Gas PEEP 8 cmH2O; Arterial Blood Gas Tidal Volume 500 ml; Arterial Blood Gas Vent Mode CMV
--- NOTE | 2022-03-27 02:55 | PC.NURSE ---
03/26/22 at 2215 Pt became SOB and started coughing up phlegm, placed on 4 L NC. Pt states breathing improved but still appeared labored. O2 95%. Lung sounds were similar to assessment at 1999. Dr Bunn notified. Breathing treatment and Chest XR ordered. Breathing treatment did not improve labored breathing. Dr Coats also notified for HR 120's and current symptoms. Orders: 2 doses of Metoprolol IV 10 minutes apart, Amio bolus, and to keep continous Amio at 1. Pt remained SOB, was anxious, became diaphoretic, and was vomiting. Rapid Response called.
[2022-03-27] MEDS: CISATRACURIUM BESYLATE 200 MG in DEXTROSE 5% 80 ML 9.09 ML IV CONT (03:00)
[2022-03-27 04:27] LABS: Basophils Absolute Auto 0.1 K/mm3 (0.0-0.1); Basophils Percent Auto 0.3 % (0.2-1.2); Hematocrit 48.8 % (42.0-52.0); Hemoglobin 15.5 g/dL (14.0-18.0); Immature Granulocyte Absolute 0.17 K/mm3 (0.00-0.031); Immature Granulocyte Percent A 0.7 % (0-0.5); Lymphocytes Percent Auto 4.1 % (18.3-44.2); Mean Corpuscular HGB Conc 31.8 g/dl (32-36); Mean Corpuscular Hemoglobin 25.4 pg (26-34); Mean Corpuscular Volume 79.9 fl (80-100); Mean Platelet Volume 10.6 fl (7.4-10.4); Monocytes Absolute Auto 1.7 K/mm3 (0.1-0.6); Neutrophils Absolute Auto 21.6 K/mm3 (1.3-6.7); Neutrophils Percent Auto 87.9 % (45.5-73.1); Platelet Count Result 219 k/mm3 (150-375); Red Blood Count 6.11 M/mm3 (4.6-6.20); Red Cell Distribution Width 18.1 % (11.5-14.5); White Blood Count 24.6 K/mm3 (4.5-10.0)
[2022-03-27 04:40] LABS: INR 2.5; Prothrombin Time 26.5 Seconds (11.1-14.7)
[2022-03-27 04:41] LABS: Alanine Aminotransferase 172 U/L (6-50); Albumin Level 3.4 g/dL (3.5-5.1); Alkaline Phosphatase 92 U/L (38-126); Anion Gap 14 mmol/L (8-16); Aspartate Amino Transferase 183 U/L (17-59); Bilirubin,Total 1.7 mg/dL (0.2-1.3); Blood Urea Nitrogen 22 mg/dL (9-20); Calcium 11.2 mg/dL (8.4-10.2); Carbon Dioxide 26 mmol/L (22-30); Chloride 105 mmol/L (98-107); Estimated CRCL calculation 37 ml/min; Estimated Glomerular Filt Rate 39; Glucose 163 mg/dL (65-110); Magnesium 2.3 mg/dL (1.6-2.3); Sodium 145 mmol/L (137-145)
[2022-03-27] MEDS: METOPROLOL TARTRATE INJ 5 MG/5 ML VIAL 2.5 MG IV PUSH (04:42)
[2022-03-27 05:35] LABS: Alveolar/Arterial O2 Gradient 575.7 mmHg; Base Excess ABG -2.5 mEq/l (+/-2.0); Carboxyhemoglobin 0.5 % THb (0-2.0); Fractional Inspired Oxygen 100 %; HCO3 ABG 26.4 mEq/l (22.0-26.0); Methemoglobin ABG 0.4 %THb (0-1.5); Oxyhemoglobin 90.1 % THb (90.0-100.0); PO2 ABG 74.1 mmHg (80.0-100.0); PO2 FiO2 Ratio Arterial Blood 0.74 %; Total Hemoglobin 15.8 g/dL (12.0-18.0)
[2022-03-27 05:36] LABS: pH ABG 7.239 (7.350-7.450)
[2022-03-27 05:37] LABS: Arterial Blood Gas Vent Mode CMV; Arterial Blood Gas Ventilator rate 24 /MIN; Device VENTILATOR; Modified Allen's Test Pass; PCO2 ABG 63.2 mmHg (35.0-45.0); Site Drawn LEFT RADIAL
[2022-03-27 05:38] LABS: Arterial Blood Gas PEEP 12 cmH2O; Arterial Blood Gas Tidal Volume 500 ml
[2022-03-27] MEDS: AMIODARONE 150 MG/D5W 100 ML 150 MG/100 ML BAG 600 MG IV CONT ×4 (05:50→09:20)
[2022-03-27] MEDS: SODIUM BICARBONATE 8.4% 50 MEQ/50 ML SYRINGE 101 MEQ IV PUSH (05:51)
[2022-03-27] MEDS: SODIUM BICARBONATE 8.4% 50 MEQ/50 ML SYRINGE 100 MEQ IV PUSH (06:10)
[2022-03-27] MEDS: NOREPINEPHRINE 8 MG/D5W 250 ML 8 MG/250 ML BAG 9.38 MG IV CONT (06:10)
--- NOTE | 2022-03-27 07:24 | P.PNCA_ITS ---
Progress Note: A&P Assessment and Plan (1) Respiratory failure: Code(s): J96.90 - Respiratory failure, unspecified, unspecified whether with hypoxia or hypercapnia Status: Acute Assessment and Plan: Patient's condition declined, now in acute respiratory failure, likely due to CHF, though being treated for infection as well. * Intubated and sedated, on high FiO2 (2) Shock: Code(s): R57.9 - Shock, unspecified Status: Acute Assessment and Plan: Patient went into shock, probably cardiogenic, and had a PEA arrest last night. * Continue supportive care with Levophed, intubation and ventilation etc. * Discussed with Dr. Ortega (3) Tachycardia: Code(s): R00.0 - Tachycardia, unspecified Status: Acute Assessment and Plan: Patient found to have a somewhat wide complex tachycardia in the field, rate 248 beats per minute. * Likely was a ventricular tachycardia, a flutter w/ 1:1 conduction cannot be excluded. * He was remarkably stable with this rhythm although hypotensive. * Will likely discuss w/ EP at a later time (4) Atrial flutter: Code(s): I48.92 - Unspecified atrial flutter Status: Acute Assessment and Plan: Atrial flutter RVR, heart rate in the 120s. * Has been chronically anticoagulated with warfarin, therapeutic INR, states compliance * Changed Cardizem to amiodarone * Will need to reduce the warfarin dose * Deteriorated overnight as described, now a fib RVR * Likely contributing to pt's declining status * Discussed w/ Dr. Ortega. Will attempt cardioversion. Pt may not convert, may not stay in NSR, may result in untoward rhythm (bradycardia/pause/asystole) or worsening shock due to myocardial stunning, but conversion to sinus rhythm may help prevent further deterioration and stabilize pt. (5) Acute on chronic systolic CHF (congestive heart failure): Code(s): I50.23 - Acute on chronic systolic (congestive) heart failure Status: Acute Assessment and Plan: Patient is developed acute systolic CHF, probably acute on chronic, aggravated by a flutter RVR. * Attempt diuresis as blood pressure allows (6) Cardiomyopathy: Code(s): I42.9 - Cardiomyopathy, unspecified Status: Acute Assessment and Plan: Preliminary echo report suggests severe cardiomyopathy. * Not sure if this is chronic or acute due to the extremely rapid heart rate the patient experienced yesterday and left ventricular stunning. * No old records in [facility] or [facility] EMR. Discussed with Dr. Mona Ulrich as above. (7) Mitral regurgitation: Code(s): I34.0 - Nonrheumatic mitral (valve) insufficiency Status: Acute Assessment and Plan: Severe mitral regurgitation, unclear if acute chronic or a combination (8) CAD (coronary artery disease): Code(s): I25.10 - Atherosclerotic heart disease of [place] coronary artery without angina pectoris Status: Acute Assessment and Plan: History of CAD and stent in 2019, stable with no angina, even with a heart rate near 250 beats per minute. * Minimal troponin spill with this episode, ACS unlikely. Subjective Date/time seen: Follow-up for atrial flutter, status post cardiac arrest, cardiomyopathy Date of service 03/27/22 07:24: received call from nurse last night that the patient was having more respiratory distress and heart rate was were consistently in the upper 120s. Was diuresing from the IV Lasix prov
--- NOTE | 2022-03-27 07:24 | PM.PNCARD ---
Progress Note: A&P Assessment and Plan (1) Respiratory failure: Code(s): J96.90 - Respiratory failure, unspecified, unspecified whether with hypoxia or hypercapnia Status: Acute Assessment and Plan: Patient's condition declined, now in acute respiratory failure, likely due to CHF, though being treated for infection as well. Intubated and sedated, on high FiO2 (2) Shock: Code(s): R57.9 - Shock, unspecified Status: Acute Assessment and Plan: Patient went into shock, probably cardiogenic, and had a PEA arrest last night. Continue supportive care with Levophed, intubation and ventilation etc. Discussed with Dr. Ortega (3) Tachycardia: Code(s): R00.0 - Tachycardia, unspecified Status: Acute Assessment and Plan: Patient found to have a somewhat wide complex tachycardia in the field, rate 248 beats per minute. Likely was a ventricular tachycardia, a flutter w/ 1:1 conduction cannot be excluded. He was remarkably stable with this rhythm although hypotensive. Will likely discuss w/ EP at a later time (4) Atrial flutter: Code(s): I48.92 - Unspecified atrial flutter Status: Acute Assessment and Plan: Atrial flutter RVR, heart rate in the 120s. Has been chronically anticoagulated with warfarin, therapeutic INR, states compliance Changed Cardizem to amiodarone Will need to reduce the warfarin dose Deteriorated overnight as described, now a fib RVR Likely contributing to pt's declining status Discussed w/ Dr. Ortega. Will attempt cardioversion. Pt may not convert, may not stay in NSR, may result in untoward rhythm (bradycardia/pause/asystole) or worsening shock due to myocardial stunning, but conversion to sinus rhythm may help prevent further deterioration and stabilize pt. (5) Acute on chronic systolic CHF (congestive heart failure): Code(s): I50.23 - Acute on chronic systolic (congestive) heart failure Status: Acute Assessment and Plan: Patient is developed acute systolic CHF, probably acute on chronic, aggravated by a flutter RVR. Attempt diuresis as blood pressure allows (6) Cardiomyopathy: Code(s): I42.9 - Cardiomyopathy, unspecified Status: Acute Assessment and Plan: Preliminary echo report suggests severe cardiomyopathy. Not sure if this is chronic or acute due to the extremely rapid heart rate the patient experienced yesterday and left ventricular stunning. No old records in [facility] or [facility] EMR. Discussed with Dr. Mona Ulrich as above. (7) Mitral regurgitation: Code(s): I34.0 - Nonrheumatic mitral (valve) insufficiency Status: Acute Assessment and Plan: Severe mitral regurgitation, unclear if acute chronic or a combination (8) CAD (coronary artery disease): Code(s): I25.10 - Atherosclerotic heart disease of [place] coronary artery without angina pectoris Status: Acute Assessment and Plan: History of CAD and stent in 2019, stable with no angina, even with a heart rate near 250 beats per minute. Minimal troponin spill with this episode, ACS unlikely. Subjective Date/time seen: Follow-up for atrial flutter, status post cardiac arrest, cardiomyopathy Date of service 03/27/22 07:24: received call from nurse last night that the patient was having more respiratory distress and heart rate was were consistently in the upper 120s. Was diuresing from the IV Lasix provided earlier. Ordered another amiodarone bolus and IV metoprolol, requested call back in 2 hours if the patient was not better. However patient deteriorated and went into respiratory distress and pulmonary edema. BiPAP was tried and eventually the patient needed intubation and had a PEA arrest as delineated in the EMR. Currently the patient is sedated and on Levophed and has been very tenuous. SBP in 90's. Requires 90% FiO2 and prone positioning for oxygenation. Febrile. Urine o
[2022-03-27] MEDS: VASOPRESSIN INJ 100 UNITS in DEXTROSE 5% 95 ML IV CONT (08:22)
[2022-03-27] MEDS: LIDOCAINE HCL 1% PF INJ 5 ML VIAL INFILTRATE (08:30)
--- NOTE | 2022-03-27 08:56 | WPDHPUPDATE1 ---
History and Physical Update Update Date/Time: 03/27/22 08:56 History and Physical has been reviewed, including an updated exam of the patient. There are NO changes in the patient's condition other than now having a PICC line in place. Risks, benefits, and alternatives have been discussed with the pt's sister and questions answered, Albert, who is the only relative we are able to locate at this time. She understands that the patient is critically ill and unstable, and cardioversion has risks which are higher in a critically ill pt like her brother, and can include abnormal heart rhythms, worsening shock, etc.. Patient has been therapeutically anticoagulated and stroke is not likely although of course possible in view of the patient's severe illness. She agrees to proceed with procedure.
--- NOTE | 2022-03-27 08:59 | WPDMODSED ---
Moderate Sedation Note-Pt Data Patient Data Diagnosis: Cardiogenic shock, respiratory failure AFib RVR Cardiomyopathy Acute systolic heart failure Severe mitral regurgitation History of CAD Present Complaint: AFib RVR Procedure to be performed/Plan: Sedation (already sedated due to intubation) Elective electrical cardioversion Allergies Allergy/AdvReac Type Severity Reaction Status Date / Time No Known Allergies Allergy Verified 03/25/22 19:02 Home Medications Medication Instructions Recorded Confirmed Type atorvastatin 80 mg tablet 80 mg PO HS 03/26/22 03/26/22 History carvedilol 12.5 mg tablet 12.5 mg PO BID 03/26/22 03/26/22 History clopidogrel 75 mg tablet 75 mg PO DAILY 03/26/22 03/26/22 History furosemide 40 mg tablet 40 mg PO BID 03/26/22 03/26/22 History hydralazine 50 mg tablet 50 mg PO TID 03/26/22 03/26/22 History linagliptin 5 mg tablet (Tradjenta) 5 mg PO DAILY 03/26/22 03/26/22 History warfarin 5 mg tablet 5 mg PO HS 03/26/22 03/26/22 History Current Medications: Active Medications Atorvastatin Calcium (Atorvastatin 40 Mg Tablet) 80 mg PO [facility] Last Admin: 03/26/22 23:41 Dose: 80 mg Clopidogrel Bisulfate (Clopidogrel Bisulfate 75 Mg Tablet) 75 mg PO DAILY [facility] Dextrose (Dextrose 50% 25 Gm/50 Ml Syringe) 12.5 gm IV PUSH PRN PRN; Protocol PRN Reason: Hypoglycemia Furosemide (Furosemide Inj 40 Mg/4 Ml Vial) 40 mg IV PUSH BID [facility] Last Admin: 03/26/22 18:11 Dose: 40 mg Glucagon (Glucagon For Inj 1 Mg Vial) 1 mg IM PRN PRN; Protocol PRN Reason: Hypoglycemia Glucose (Glucose Oral Gel 15 Gm Of Glucse In 37.5 Gm Tube) 15 gm PO PRN PRN; Protocol PRN Reason: Hypoglycemia Hydrocortisone Sodium Succinate (Hydrocortisone Sodium Succinate 100 Mg/2 Ml Vial) 100 mg IV PUSH Q8HR [facility] Amiodarone HCl/Dextrose (Nexterone 360 Mg/D5w 200 Ml) 360 mg in 200 mls @ 33.333 mls/hr IV CONT .Q6H [facility] Last Admin: 03/27/22 07:46 Dose: 1 mg/min, 33.33 mls/hr Fentanyl Citrate (Fentanyl 2,500 Mcg/Ns 250 Ml) 2,500 mcg in 250 mls @ 20 mls/hr IV CONT .[id number] KEVIN; Protocol Last Titration: 03/27/22 02:30 Dose: 200 mcg/hr, 20 mls/hr Midazolam HCl (Versed 100 Mg/Ns 100 Ml) 100 mg in 100 mls @ 10 mls/hr IV CONT .Q10H [facility]EVIN; Protocol Last Titration: 03/27/22 02:30 Dose: 10 mg/hr, 10 mls/hr Cisatracurium Besylate 200 mg/ (Dextrose) 100 mls @ 7.575 mls/hr IV CONT .[id number] KEVIN; Protocol Last Titration: 03/27/22 07:47 Dose: 2.5 mcg/kg/min, 7.58 mls/hr Cefepime HCl (Maxipime 1 Gm/D5w 50 Ml) 1 gm in 50 mls @ 100 mls/hr IVPB Q12H [facility] Last Admin: 03/27/22 05:53 Dose: 100 mls/hr Dextrose (Dextrose 5% 1,000 Ml) 1,000 mls @ 100 mls/hr IVPB PRN PRN; Protocol PRN Reason: Hypoglycemia Vancomycin HCl (Vancomycin 1,500 Mg/D5w 500 Ml) 1,500 mg in 500 mls @ 333.333 mls/hr IVPB Q36H [facility] Last Admin: 03/27/22 06:54 Dose: 333.33 mls/hr Norepinephrine Bitartrate (Levophed 8 Mg/D5w 250 Ml) 8 mg in 250 mls @ 37.5 mls/hr IV CONT .Q6H40M [facility]EVIN; Protocol Last Titration: 03/27/22 07:35 Dose: 20 mcg/min, 37.5 mls/hr Vasopressin 100 units/ (Dextrose) 100 mls @ 1.2 mls/hr IV CONT .Q72H KEVIN; Protocol Last Titration: 03/27/22 08:47 Dose: 0.04 units/min, 2.4 mls/hr Insulin Aspart (Insulin Aspart (*Bkc) 100 Units/Ml) 2 - 5 units SUB-Q Q4HR KEVIN; Protocol Multi-Ingred Cream/Lotion/Oil/Oint (Mineral Oil/White Petrolatum Ointment) 1 applic EACH EYE Q12HR [facility] Sodium Chloride (Central Line Flush) 10 ml IV PUSH Q8HR [facility] Sodium Chloride (Central Line Flush) 10 ml IV PUSH PRN PRN PRN Reason: with TPN bag changes Sodium Chloride (Central Line Flush) 20 ml IV PUSH PRN PRN PRN Reason: after blood draws Warfarin Sodium (Warfarin (*Pbkc) 5 Mg Tablet) 5 mg PO HS [facility] Last Admin: 03/26/22 23:41 Dose: 5 mg Sedation/Anesthesia: No previous sedation/anesthesia problems (including family history). [facility] Past Medical History Medical History CAD (coronary artery disease) CHF
--- NOTE | 2022-03-27 09:15 | PM.OP ---
Procedure Note - Brief Procedure Note - Brief Date of procedure: 03/27/22 Pre-op diagnosis: Atrial fibrillation RVR Post-op diagnosis: Other (Normal sinus rhythm) Description of procedure: Uneventful cardioversion with 300 joules of synchronized energy Surgeon: Karlee Coats MD Condition: Critical (No change other than lutheran of sinus rhythm)
--- NOTE | 2022-03-27 09:16 | W.PM.PROC2 ---
Procedure Note - Detailed Date of Procedure 03/27/22 Pre-op Diagnosis Atrial fibrillation RVR Post-op Diagnosis Other (Sinus rhythm restored) Procedure Performed Elective electrical cardioversion Surgeon Karlee Coats MD Indications AFib RVR, shock, respiratory failure Description of Procedure Patient was previously sedated and intubated. He is pronated. We gently turned hm and placed an anterior pad over sternum, and returned him to the prone position. The other pad was put placed over his thoracic spine, posteriorly. A 2nd set of pads was available in the room in case pacing was needed or a repositioning of the pads were needed. He then underwent elective electrical cardioversion with 300 joules of biphasic energy, using manual compression over the defibrillation pad, and promptly converted to sinus rhythm rate in the 70s to 80s. There were some brief runs of AFib initially and some PVCs; will give another bolus of amiodarone 150 mg to help maintain sinus rhythm. Reviewed with Dr. Ortega. Hopefully the patient will maintain sinus rhythm, but can consider another CV if he goes back into a fib RVR.. Urine Output 1,000 Complications No immediate complications Condition Critical (Unchanged except for moravian of NSR.) Disposition ICU
[2022-03-27] MEDS: CLOPIDOGREL BISULFATE 75 MG TABLET PO (09:38)
[2022-03-27 09:40] LABS: Glucose Point of Care 216 mg/dl (65-105)
[2022-03-27] MEDS: INSULIN ASPART (*BKC) 100 UNITS/ML SUB-Q ×2 (09:41→16:28)
--- NOTE | 2022-03-27 10:22 | WPDCNINT ---
Assessment and Plan Assessment and plan (1) Shock: Code(s): R57.9 - Shock, unspecified Status: Acute Assessment and Plan: Continue Levophed I have added vasopressin and stress dose steroids to try to wean down Levophed infusion Hopefully conversion to sinus rhythm will help (2) Respiratory failure: Code(s): J96.90 - Respiratory failure, unspecified, unspecified whether with hypoxia or hypercapnia Status: Acute Assessment and Plan: Severe acute hypoxic respiratory failure secondary to pulmonary edema Patient was intubated overnight placed on mechanical ventilation He is on 12 of PEEP 100% FiO2. I wean down FiO2 to 80% Chest x-ray reviewed and shows diffuse bilateral infiltrates an ET tube in acceptable position Patient is chemically paralyzed and is in prone position which will be continued through the day Repeat ABG later today (3) Type 2 diabetes mellitus: Code(s): E11.9 - Type 2 diabetes mellitus without complications Status: Acute Assessment and Plan: Sliding scale insulin (4) Acute on chronic systolic CHF (congestive heart failure): Code(s): I50.23 - Acute on chronic systolic (congestive) heart failure Status: Acute Assessment and Plan: Baseline cardiac function but Echo done here at [place] on this as physician shows ? 1. Left ventricular systolic function is severely reduced, estimated at <15%. ? 2. Right ventricular systolic function is reduced. ? 3. Left atrial chamber dimension is severely enlarged. ? 4. There is severe mitral valve regurgitation Likely this has been worsened by his uncontrolled AFib with RVR (5) Cardiomyopathy: Code(s): I42.9 - Cardiomyopathy, unspecified Status: Acute Assessment and Plan: See above (6) JANIE (acute kidney injury): Code(s): N17.9 - Acute kidney failure, unspecified Status: Acute Assessment and Plan: Increase in creatinine to 2.1 Hold Lasix due to shock Maintain mean arterial perfusion with pressors Check urine electrolytes (7) Cardiac arrest: Code(s): I46.9 - Cardiac arrest, cause unspecified Status: Acute Assessment and Plan: Patient's cardiac arrest is likely combination of respiratory and cardiac issues. Patient had hypoxic respiratory failure from pulmonary edema and also was AFib with RVR and also has cardiomyopathy with EF less than 15% and severe MR At this time we are trying to stabilize patient hemodynamically. He was cardioverted this morning and hopefully that his sinus rhythm will stay. Monitor and treat electrolytes. This does not appear to be ACS With chemical paralysis and prone positioning his saturations are now acceptable will try to wean down FiO2 With prolonged down time patient may have anoxic injury although there is no way to assess at this time since patient is already sedated and chemically paralyzed. Patient also remained in and unstable rhythm with shock until this morning until he was cardioverted. Also had a PEA arrest which has not shown consistent benefit with TTM. Patient is also out of 6 hour time frame window of initiating TTM. Despite that I have started patient on moderate TTM to try to keep his temperature less than 36 C for next 24 hours. Once patient is hemodynamically stabilized I will try to obtain a CT scan of his head. (8) Atrial fibrillation with RVR: Code(s): I48.91 - Unspecified atrial fibrillation Status: Acute Assessment and Plan: Patient with uncontrolled AFib with RVR through the night. Which has been complicated by shock He had received several boluses of amiodarone and was on amiodarone infusion Patient is already anticoagulated at baseline I discussed case with Dr. Coats from Cardiology and she DC cardioverted patient to normal sinus rhythm. Another bolus of amiodarone was given. It is quite possible the patient may revert back to AFib. Continue amiodarone infusion at the time. Emily
[2022-03-27] MEDS: PHENTOLAMINE MESYLATE 5 MG/ML VIAL 10 MG IM (10:57)
[2022-03-27 11:21] LABS: Creatine Kinase 972 U/L (55-170)
[2022-03-27] MEDS: MIDAZOLAM 100MG/NS 100ML(*CRX) 100 MG/100 ML BAG 10 MG IV CONT ×2 (11:38→21:04)
[2022-03-27] MEDS: PANTOPRAZOLE SODIUM IV 40 MG VIAL IV PUSH (11:47)
[2022-03-27 12:35] LABS: Base Excess ABG 1.5 mEq/l (+/-2.0); Fractional Inspired Oxygen 80 %; HCO3 ABG 27.5 mEq/l (22.0-26.0); Oxygen Content ABG 21.4 %vol (16.0-22.0); Oxygen Saturation ABG 98.7 % (95.0-100.0); Oxyhemoglobin 97.4 % THb (90.0-100.0); PCO2 ABG 48.6 mmHg (35.0-45.0); PO2 ABG 140.4 mmHg (80.0-100.0); PO2 FiO2 Ratio Arterial Blood 1.75 %; Total Hemoglobin 15.5 g/dL (12.0-18.0); pH ABG 7.371 (7.350-7.450)
[2022-03-27 12:36] LABS: Procalcitonin 55.9 ng/mL
[2022-03-27 12:37] LABS: Arterial Blood Gas Vent Mode CMV; Arterial Blood Gas Ventilator rate 24 /MIN; Device VENTILATOR; Modified Allen's Test Pass; Site Drawn RIGHT RADIAL
[2022-03-27 12:38] LABS: Arterial Blood Gas PEEP 12 cmH2O; Arterial Blood Gas Pressure Support 0 cmH2O; Arterial Blood Gas Tidal Volume 500 ml
[2022-03-27 12:47] LABS: Glucose Point of Care 190 mg/dl (65-105)
[2022-03-27 13:14] LABS: Creatinine Urine 162.3 mg/dL
[2022-03-27 13:21] LABS: Sodium Urine Random 53 meq/L
[2022-03-27] MEDS: HYDROCORTISONE SODIUM SUCCINATE 100 MG/2 ML VIAL IV PUSH ×2 (13:26→21:59)
[2022-03-27] MEDS: CENTRAL LINE FLUSH 10 ML IV PUSH ×2 (13:34→21:59)
[2022-03-27] MEDS: CISATRACURIUM BESYLATE 200 MG in DEXTROSE 5% 80 ML 7.58 ML IV CONT (13:36)
[2022-03-27] MEDS: NOREPINEPHRINE 8 MG/D5W 250 ML 8 MG/250 ML BAG 22.5 MG IV CONT (13:36)
[2022-03-27] MEDS: AMIODARONE 360 MG/D5W 200 ML 360 MG/200 ML BAG 16.67 MG IV CONT (13:41)
[2022-03-27] MEDS: FENTANYL 2,500MCG/NS250ML(*CRX 2,500 MCG/250 ML BAG 20 MCG IV CONT (13:44)
[2022-03-27 13:57] LABS: Alanine Aminotransferase 187 U/L (6-50); Albumin Level 2.9 g/dL (3.5-5.1); Alkaline Phosphatase 68 U/L (38-126); Anion Gap 12 mmol/L (8-16); Aspartate Amino Transferase 197 U/L (17-59); Bilirubin,Total 0.9 mg/dL (0.2-1.3); Blood Urea Nitrogen 29 mg/dL (9-20); Calcium 9.5 mg/dL (8.4-10.2); Carbon Dioxide 30 mmol/L (22-30); Chloride 97 mmol/L (98-107); Estimated CRCL calculation 29 ml/min; Estimated Glomerular Filt Rate 28; Glucose 336 mg/dL (65-110); Phosphorus 5.1 mg/dL (2.5-4.5); Potassium 4.1 mmol/L (3.4-5.0); Sodium 139 mmol/L (137-145)
[2022-03-27] MEDS: INSULIN GLARGINE (*BKC) 100 UNITS/ML 15 UNITS SUB-Q (16:28)
[2022-03-27 16:29] LABS: Glucose Point of Care 216 mg/dl (65-105)
--- NOTE | 2022-03-27 18:05 | PM.IMPN ---
Progress Note: A&P Assessment and Plan (1) Shock: Code(s): R57.9 - Shock, unspecified Status: Acute Assessment and Plan: Continue Levophed, vasopressin and stress dose steroids (2) Respiratory failure: Code(s): J96.90 - Respiratory failure, unspecified, unspecified whether with hypoxia or hypercapnia Status: Acute Assessment and Plan: Pt is intubated in ICU pt had rapid response earlier this morning (3) Type 2 diabetes mellitus: Code(s): E11.9 - Type 2 diabetes mellitus without complications Status: Acute Assessment and Plan: Sliding scale insulin (4) Acute on chronic systolic CHF (congestive heart failure): Code(s): I50.23 - Acute on chronic systolic (congestive) heart failure Status: Acute Assessment and Plan: Baseline cardiac function but Echo done here at [place] on this as physician shows ? 1. Left ventricular systolic function is severely reduced, estimated at <15%. ? 2. Right ventricular systolic function is reduced. ? 3. Left atrial chamber dimension is severely enlarged. ? 4. There is severe mitral valve regurgitation (5) Cardiomyopathy: Code(s): I42.9 - Cardiomyopathy, unspecified Status: Acute Assessment and Plan: See above (6) JANIE (acute kidney injury): Code(s): N17.9 - Acute kidney failure, unspecified Status: Acute Assessment and Plan: Increase in creatinine is 2.8 Worsening continue to watch (7) Cardiac arrest: Code(s): I46.9 - Cardiac arrest, cause unspecified Status: Acute Assessment and Plan: Patient's cardiac arrest is likely combination of respiratory and cardiac issues. (8) Atrial fibrillation with RVR: Code(s): I48.91 - Unspecified atrial fibrillation Status: Acute Assessment and Plan: Patient with uncontrolled AFib with RVR through the night. And cardiogenic shock. (9) Severe mitral regurgitation: Code(s): I34.0 - Nonrheumatic mitral (valve) insufficiency Status: Acute Assessment and Plan: Severe MR on echo which is contributing to AFib, congestive heart failure pulmonary edema and shock. (10) Extravasation of other vesicant agent: Code(s): T80.818A - Extravasation of other vesicant agent, initial encounter Status: Acute (11) Sepsis: Code(s): A41.9 - Sepsis, unspecified organism Status: Acute Assessment and Plan: Await blood cultures and sputum culture Patient has been started on vancomycin and cefepime (12) CAD (coronary artery disease): Code(s): I25.10 - Atherosclerotic heart disease of [place] coronary artery without angina pectoris Status: Acute Assessment and Plan: History of coronary disease Pt is on = aspirin Plavix Subjective Date/time seen: 03/27/22 18:05 66-year-old male with past medical history significant for hypertension, systolic heart failure, coronary artery disease, former smoker patient was brought to the emergency room after having an episode of near syncope. PT was found to be in AF was on cardizem drip. Pt was had a rapid response earlier this morning for cardiac arrest, cardiogenic shock and respiratory failure was intubated in ICU. Pt had cardioversion today. Pt was also covered with abx for possible septic shock. Objective Data Vital Signs Vital Signs: Vital Signs - 24 hr 03/26/22 18:11 03/26/22 18:13 03/26/22 20:00 Temperature 36.9 C Pulse Rate 117 H 116 H 124 H Respiratory Rate 20 Blood Pressure 110/86 110/86 129/96 H Pulse Oximetry 93 Oxygen Delivery Oxygen Flow Rate Fraction of Inspired Oxygen 03/26/22 22:11 03/26/22 22:45 03/26/22 22:58 Temperature 36.4 C Pulse Rate 123 H 123 H 123 H Respiratory Rate 28 H 31 H 31 H Blood Pressure 145/99 H Pulse Oximetry 95 Oxygen Delivery Oxygen Flow Rate Fraction of Inspired Oxygen 03/26/22 20:00 03/26/22 22:00 03/26/22 2
[2022-03-27] MEDS: WARFARIN (*PBKC) 5 MG TABLET PO (20:11)
[2022-03-27] MEDS: ATORVASTATIN 40 MG TABLET 80 MG PO (20:11)
[2022-03-27] MEDS: MINERAL OIL/WHITE PETROLATUM OINTMENT 1 APPLIC EACH EYE (20:11)
[2022-03-27 20:27] LABS: Glucose Point of Care 169 mg/dl (65-105)
[2022-03-28] VITALS (67 sets, daily range): BP systolic 75–126; BP diastolic 54–89; PULSE 53–116; RESP 24; TEMP 35.8–36.3; O2SAT 90–100
[2022-03-28 00:31] LABS: Glucose Point of Care 163 mg/dl (65-105)
[2022-03-28] MEDS: CISATRACURIUM BESYLATE 200 MG in DEXTROSE 5% 80 ML 7.58 ML IV CONT (00:55)
[2022-03-28] MEDS: FENTANYL 2,500MCG/NS250ML(*CRX 2,500 MCG/250 ML BAG 20 MCG IV CONT ×2 (01:43→14:04)
[2022-03-28 02:53] LABS: Hematocrit 39.8 % (42.0-52.0); Mean Corpuscular HGB Conc 32.7 g/dl (32-36); Mean Corpuscular Hemoglobin 25.4 pg (26-34); Mean Corpuscular Volume 77.9 fl (80-100); Mean Platelet Volume 10.9 fl (7.4-10.4); Platelet Count Result 128 k/mm3 (150-375); Red Blood Count 5.11 M/mm3 (4.6-6.20); Red Cell Distribution Width 17.4 % (11.5-14.5); White Blood Count 21.2 K/mm3 (4.5-10.0)
[2022-03-28 03:05] LABS: INR 3.2; Prothrombin Time 31.7 Seconds (11.1-14.7)
[2022-03-28 03:15] LABS: Alanine Aminotransferase 174 U/L (6-50); Albumin Level 2.6 g/dL (3.5-5.1); Alkaline Phosphatase 51 U/L (38-126); Anion Gap 11 mmol/L (8-16); Aspartate Amino Transferase 160 U/L (17-59); Bilirubin,Total 1.1 mg/dL (0.2-1.3); Blood Urea Nitrogen 42 mg/dL (9-20); Calcium 9.2 mg/dL (8.4-10.2); Carbon Dioxide 29 mmol/L (22-30); Chloride 101 mmol/L (98-107); Estimated CRCL calculation 23 ml/min; Estimated Glomerular Filt Rate 21; Glucose 154 mg/dL (65-110); Phosphorus 4.4 mg/dL (2.5-4.5); Potassium 4.5 mmol/L (3.4-5.0); Sodium 141 mmol/L (137-145)
[2022-03-28 04:36] LABS: Glucose Point of Care 146 mg/dl (65-105)
[2022-03-28] MEDS: HYDROCORTISONE SODIUM SUCCINATE 100 MG/2 ML VIAL IV PUSH ×3 (05:09→21:02)
[2022-03-28] MEDS: CENTRAL LINE FLUSH 10 ML IV PUSH ×3 (05:11→21:02)
--- NOTE | 2022-03-28 05:11 | ECG_ITS ---
Measurements Intervals [place] Rate: 107 P: 32 UT: 268 QRS: -57 QRSD: 98 T: 83 QT: 381 QTc: 509 Interpretive Statements JUNCTIONAL TACHYCARDIA LEFT AXIS DEVIATION LOW QRS VOLTAGE IN PRECORDIAL LEADS INFERIOR INFARCT, AGE INDETERMINATE BORDERLINE ST-T WAVE ABNORMALITY- HIGH LATERAL LEADS ABNORMAL ECG COMPARED TO ECG 03/25/2022 18:55:38 JUNCTIONAL TACHYCARDIA NOW PRESENT Electronically Signed On 03-28-2022 7:59:57 CDT by Carlitos Leos D.O.
[2022-03-28 05:35] LABS: Alveolar/Arterial O2 Gradient 75.4 mmHg; Base Excess ABG 2.2 mEq/l (+/-2.0); Carboxyhemoglobin 0.3 % THb (0-2.0); Fractional Inspired Oxygen 30 %; HCO3 ABG 25.4 mEq/l (22.0-26.0); Methemoglobin ABG 0.5 %THb (0-1.5); Oxygen Saturation ABG 97.8 % (95.0-100.0); PCO2 ABG 35.2 mmHg (35.0-45.0); PO2 ABG 97.1 mmHg (80.0-100.0); PO2 FiO2 Ratio Arterial Blood 3.24 %; Reduced Hemoglobin 3.2 %THb (0-5.0); pH ABG 7.476 (7.350-7.450)
[2022-03-28 05:37] LABS: Device VENTILATOR; Modified Allen's Test Pass; Site Drawn LEFT RADIAL
[2022-03-28 05:38] LABS: Arterial Blood Gas PEEP 12 cmH2O; Arterial Blood Gas Tidal Volume 500 ml; Arterial Blood Gas Vent Mode CMV; Arterial Blood Gas Ventilator rate 24 /MIN
[2022-03-28] MEDS: MIDAZOLAM 100MG/NS 100ML(*CRX) 100 MG/100 ML BAG 10 MG IV CONT ×2 (06:35→16:40)
[2022-03-28] MEDS: CLOPIDOGREL BISULFATE 75 MG TABLET PO (08:18)
[2022-03-28 08:22] LABS: Glucose Point of Care 128 mg/dl (65-105)
[2022-03-28] MEDS: PANTOPRAZOLE SODIUM IV 40 MG VIAL IV PUSH (08:28)
[2022-03-28] MEDS: MINERAL OIL/WHITE PETROLATUM OINTMENT 1 APPLIC EACH EYE ×2 (09:23→20:50)
--- NOTE | 2022-03-28 09:27 | WPDINTPN ---
Progress Note: A&P Assessment and Plan (1) Respiratory failure: Code(s): J96.90 - Respiratory failure, unspecified, unspecified whether with hypoxia or hypercapnia Status: Acute Assessment and Plan: Severe acute hypoxic respiratory failure secondary to pulmonary edema Patient was intubated 03/27 early in the morning and placed on mechanical ventilation He is currently on 12 of PEEP 30 % FiO2. Decrease PEEP to 10. Decrease tidal volume to [address] patient in prone position and see if he tolerates Chest x-ray reviewed advance ET tube by 2 cm Patient is chemically paralyzed which will be continued for now since he is on TTM protocol (2) Shock: Code(s): R57.9 - Shock, unspecified Status: Acute Assessment and Plan: Improved at this time is off Levophed Continue stress dose steroids for next 24 hours in down patient states of pressors (3) Type 2 diabetes mellitus: Code(s): E11.9 - Type 2 diabetes mellitus without complications Status: Acute Assessment and Plan: Sliding scale insulin (4) Acute on chronic systolic CHF (congestive heart failure): Code(s): I50.23 - Acute on chronic systolic (congestive) heart failure Status: Acute Assessment and Plan: Baseline cardiac function but Echo done here at [place] on this as physician shows ? 1. Left ventricular systolic function is severely reduced, estimated at <15%. ? 2. Right ventricular systolic function is reduced. ? 3. Left atrial chamber dimension is severely enlarged. ? 4. There is severe mitral valve regurgitation Likely this has been worsened by his uncontrolled AFib with RVR (5) Cardiomyopathy: Code(s): I42.9 - Cardiomyopathy, unspecified Status: Acute Assessment and Plan: See above (6) JANIE (acute kidney injury): Code(s): N17.9 - Acute kidney failure, unspecified Status: Acute Assessment and Plan: Increase in creatinine to 3.5 today Urine electrolytes suggest prerenal Fluids were not given due to patient being in severe pulmonary edema Lasix was held due to shock Continue to maintain mean arterial perfusion. Continue vasopressors if needed With pressors Check CK level Consult nephrology May need hemodialysis (7) Cardiac arrest: Code(s): I46.9 - Cardiac arrest, cause unspecified Status: Acute Assessment and Plan: Patient's cardiac arrest is likely combination of respiratory and cardiac issues. Patient had hypoxic respiratory failure from pulmonary edema and also was AFib with RVR and also has cardiomyopathy with EF less than 15% and severe MR. He was cardioverted 03/27 opening any continues to be in sinus rhythm Monitor and treat electrolytes. This does not appear to be ACS With chemical paralysis and prone positioning his saturations are now acceptable. Continue to wean FiO2 With prolonged down time patient may have anoxic injury although there is no way to assess at this time since patient is already sedated and chemically paralyzed. Patient also remained in and unstable rhythm with shock until this morning until he was cardioverted. Also had a PEA arrest which has not shown consistent benefit with TTM. Patient is also out of 6 hour time frame window of initiating TTM. Despite that I started patient on moderate TTM to try to keep his temperature less than 36 C for next 24 hours. He will complete this afternoon. Once patient is reformed, I will check head CT. If he tolerates supine position, will discontinue paralytic and eventually sedation holiday to sepsis neuro function (8) Atrial fibrillation with RVR: Code(s): I48.91 - Unspecified atrial fibrillation Status: Acute Assessment and Plan: Patient with uncontrolled AFib with RVR through the night. Which has been complicated by shock He had received several boluses of amiodarone and was on amiodarone infusion Patient is already anticoagulated at baseline 03/27 I discuss
--- NOTE | 2022-03-28 11:25 | PCFNICU ---
ICU Rounding Note: Pt current nutrition is NPO. Nutrition recommendation: Vital AF 1.2 at 25 ml/hr advance to goal rate of 70 ml/hr Last recorded weight is 109.9 kg, up from 105 kg on admit. Bowel Motility:No BM.hypoactive bowel sounds. Labs Reviewed:GFR 21, BUN 42, Cr 3.5,Glu 154, Alb 2.6 Meds Noted: Fentanyl, Versed, Nimbex, Levophed, Vasopressin, Solu Cortef, Cefepime, Plavix, Protonix. Skin: WNL Additional Notes: Patient remains NPO. CT scan ordered. Patient remains on Nimbex and Pressors. No plans for feeding at this time. Tube feeding recommendations: Vital AF 1.2 at 25 ml/hr advance by 10 ml q 4 hours to goal rate of 70 ml/hr. Free water flush 30 ml q 4 hours. Following daily in ICU rounds. Will monitor in ICU rounds and reassessing every Friday and Friday.
[2022-03-28] MEDS: LACTATED RINGERS 500 ML 999 ML IV CONT (12:29)
[2022-03-28] MEDS: ALBUMIN HUMAN 25% 25 GM/100 ML 100 ML IVPB ×2 (12:43→18:18)
--- NOTE | 2022-03-28 12:48 | ECG_ITS ---
Measurements Intervals [place] Rate: 115 P: [place]: 0 QRS: -34 QRSD: 178 T: 68 QT: 448 QTc: 620 Interpretive Statements ATRIAL FLUTTER/TACHYCARDIA WITH RAPID VENTRICULAR RESPONSE VENTRICULAR PREMATURE COMPLEX LEFT AXIS DEVIATION LEFT BUNDLE BRANCH BLOCK ABNORMAL ECG COMPARED TO ECG 03/28/2022 05:18:06 ATRIAL FLUTTER NOW PRESENT LEFT BUNDLE-BRANCH BLOCK NOW PRESENT Electronically Signed On 03-28-2022 13:07:15 CDT by Carlitos Leos D.O.
[2022-03-28 12:58] LABS: Glucose Point of Care 121 mg/dl (65-105)
[2022-03-28] MEDS: CISATRACURIUM BESYLATE 200 MG in DEXTROSE 5% 80 ML 9.09 ML IV CONT ×2 (12:58→23:57)
[2022-03-28 13:36] LABS: Glucose Point of Care 118 mg/dl (65-105)
[2022-03-28] MEDS: AMIODARONE 360 MG/D5W 200 ML 360 MG/200 ML BAG 16.67 MG IV CONT (14:05)
--- NOTE | 2022-03-28 15:28 | P.PNCA_ITS ---
Progress Note: A&P Assessment and Plan (1) Respiratory failure: Code(s): J96.90 - Respiratory failure, unspecified, unspecified whether with hypoxia or hypercapnia <ALICE Rodriguez - Last Filed: 03/28/22 15:44> Status: Acute <ZARINA RodriguezC - Last Filed: 03/28/22 15:44> Assessment and Plan: Patient's condition declined, now in acute respiratory failure, likely due to CHF, though being treated for infection as well. * Intubated and sedated <ZARINA RodriguezC - Last Filed: 03/28/22 15:44> (2) Shock: Code(s): R57.9 - Shock, unspecified <ZARINA RodriguezC - Last Filed: 03/28/22 15:44> Status: Acute <ZARINA RodriguezC - Last Filed: 03/28/22 15:44> Assessment and Plan: Patient went into shock, probably cardiogenic, and had a PEA arrest 03/26. * Continue supportive care <ALICE Rodriguez - Last Filed: 03/28/22 15:44> (3) Tachycardia: Code(s): R00.0 - Tachycardia, unspecified <ALICE Rodriguez - Last Elmer ed: 03/28/22 15:44> Status: Acute <ZARINA RodriguezC - Last Filed: 03/28/22 15:44> Assessment and Plan: Patient found to have a somewhat wide complex tachycardia in the field, rate 248 beats per minute. * Likely was a ventricular tachycardia, a flutter w/ 1:1 conduction cannot be excluded. * He was remarkably stable with this rhythm although hypotensive. * Will likely discuss w/ EP at a later time <ALICE Rodriguez - Last Filed: 03/28/22 15:44> (4) Atrial flutter: Code(s): I48.92 - Unspecified atrial flutter <ALICE Rodriguez - Last Filed: 03/28/22 15:44> Status: Acute <ALICE Rodriguez - Last Filed: 03/28/22 15:44> Assessment and Plan: Atrial flutter RVR, heart rate in the 120s. * Has been chronically anticoagulated with warfarin, therapeutic INR, states compliance * Will need to reduce the warfarin dose * S/p cardioversion yesterday with islam of sinus rhythm. Amiodarone discontinued after CV because of bradycardia. Now back in atrial flutter, rate 115bpm. Will restart amiodarone drip. <ALICE Rodriguez - Last Filed: 03/28/22 15:44> (5) Acute on chronic systolic CHF (congestive heart failure): Code(s): I50.23 - Acute on chronic systolic (congestive) heart failure <ALICE Rodriguez - Last Filed: 03/28/22 15:44> Status: Acute <ALICE Rodriguez - Last Filed: 03/28/22 15:44> Assessment and Plan: Patient is developed acute systolic CHF, probably acute on chronic, aggravated by a flutter RVR. * Attempt diuresis as blood pressure allows <ALICE Rodriguez - Last Filed: 03/28/22 15:44> (6) Cardiomyopathy: Code(s): I42.9 - Cardiomyopathy, unspecified <ALICE Rodriguez - Last Filed: 03/28/22 15:44> Status: Acute <ALICE Rodriguez - Last Filed: 03/28/22 15:44> Assessment and Plan: Echo shows severe cardiomyopathy, EF <15%, severe MR * Not sure if this is chronic or acute due to the extremely rapid heart rate the patient experienced yesterday and left ventricular stunning. * No old records in [facility] EMR. * If family wanting to pursue aggressive treatment options, can consider transfer to [facility] for consideration for advanced therapies. <ALICE Rodriguez - Last Filed: 03/28/22 15:44> (7) Mitral regurgitation: Code(s): I34.0 - Nonrheumatic mitral (valve) insufficiency <ALICE Rodriguez - Last Filed: 03/28/22 15:44> Status: Acute <ALICE Rodriguez - Last Filed: 03/28/22 15:44> Brittany
--- NOTE | 2022-03-28 15:28 | PM.PNCARD ---
Progress Note: A&P Assessment and Plan (1) Respiratory failure: Code(s): J96.90 - Respiratory failure, unspecified, unspecified whether with hypoxia or hypercapnia <ALICE Rodriguez - Last Filed: 03/28/22 15:44> Status: Acute <ZARINA RodriguezC - Last Filed: 03/28/22 15:44> Assessment and Plan: Patient's condition declined, now in acute respiratory failure, likely due to CHF, though being treated for infection as well. Intubated and sedated <ZARINA RodriguezC - Last Filed: 03/28/22 15:44> (2) Shock: Code(s): R57.9 - Shock, unspecified <ZARINA RodriguezC - Last Filed: 03/28/22 15:44> Status: Acute <ALICE Rodriguez - Last Filed: 03/28/22 15:44> Assessment and Plan: Patient went into shock, probably cardiogenic, and had a PEA arrest 03/26. Continue supportive care <ZARINA RodriguezC - Last Filed: 03/28/22 15:44> (3) Tachycardia: Code(s): R00.0 - Tachycardia, unspecified <ZARINA RodriguezC - Last Filed: 03/28/22 15:44> Status: Acute <ZARINA RodriguezC - Last Filed: 03/28/22 15:44> Assessment and Plan: Patient found to have a somewhat wide complex tachycardia in the field, rate 248 beats per minute. Likely was a ventricular tachycardia, a flutter w/ 1:1 conduction cannot be excluded. He was remarkably stable with this rhythm although hypotensive. Will likely discuss w/ EP at a later time <ALICE Rodriguez - Last Filed: 03/28/22 15:44> (4) Atrial flutter: Code(s): I48.92 - Unspecified atrial flutter <ALICE Rodriguez - Last Filed: 03/28/22 15:44> Status: Acute <ALICE Rodriguez Last Filed: 03/28/22 15:44> Assessment and Plan: Atrial flutter RVR, heart rate in the 120s. Has been chronically anticoagulated with warfarin, therapeutic INR, states compliance Will need to reduce the warfarin dose S/p cardioversion yesterday with tenriism of sinus rhythm. Amiodarone discontinued after CV because of bradycardia. Now back in atrial flutter, rate 115bpm. Will restart amiodarone drip. <ALICE Rodriguez - Last Filed: 03/28/22 15:44> (5) Acute on chronic systolic CHF (congestive heart failure): Code(s): I50.23 - Acute on chronic systolic (congestive) heart failure <ALICE Rodriguez - Last Filed: 03/28/22 15:44> Status: Acute <ALICE Rodriguez - Last Filed: 03/28/22 15:44> Assessment and Plan: Patient is developed acute systolic CHF, probably acute on chronic, aggravated by a flutter RVR. Attempt diuresis as blood pressure allows <ALICE Rodriguez - Last Filed: 03/28/22 15:44> (6) Cardiomyopathy: Code(s): I42.9 - Cardiomyopathy, unspecified <ALICE Rodriguez - Last Filed: 03/28/22 15:44> Status: Acute <ALICE Rodriguez - Last Filed: 03/28/22 15:44> Assessment and Plan: Echo shows severe cardiomyopathy, EF <15%, severe MR Not sure if this is chronic or acute due to the extremely rapid heart rate the patient experienced yesterday and left ventricular stunning. No old records in [facility] EMR. If family wanting to pursue aggressive treatment options, can consider transfer to [facility] for consideration for advanced therapies. <ALICE Rodriguez - Last Filed: 03/28/22 15:44> (7) Mitral regurgitation: Code(s): I34.0 - Nonrheumatic mitral (valve) insufficiency <ALICE Rodriguez - Last Filed: 03/28/22 15:44> Status: Acute <ALICE Rodriguez - Last Filed: 03/28/22 15:44> Assessment and Plan: Severe mitral regurgitation, unclear if acute chronic or a combination <ALICE Rodriguez - Last Filed: 03/28/22 15:44> (8) CAD (coronary artery disease): Code(s): I25.10 - Atherosclerotic heart disease of [place] coronary artery without angina pectoris <ALICE Rodriguez - Last Filed: 03/28/22 15:44> Sta
--- NOTE | 2022-03-28 16:14 | PM.CNNEP ---
Assessment and Plan Assessment and plan (1) JANIE (acute kidney injury): Code(s): N17.9 - Acute kidney failure, unspecified Status: Acute Assessment and Plan: the patient has a near normal baseline creatinine. His creatinine is rising rapidly in the last couple of days. Most likely this is due to shock, and probably pre renal azotemia. He does not seem do have received any contrast and is on no nephrotoxic medications. He is still fairly unstable. He is on 2 pressors at significant doses. His blood pressure currently is 115/86 but his systolic was between 70 and 90 for significant part of this morning. He is making very little urine. His FiO2 is at 50%. His electrolytes are okay. His BUN has not risen very much. He does not need dialysis emergently but he may need it soon if he does not start to make urine. Will continue supportive care. Will check a renal ultrasound. Will keep his medications the same. (2) CHF (congestive heart failure): Code(s): I50.9 - Heart failure, unspecified Status: Acute Assessment and Plan: The patient has an ejection fraction of less than 15% and severe mitral valve regurgitation. (3) Sepsis: Code(s): A41.9 - Sepsis, unspecified organism Status: Acute Assessment and Plan: Blood cultures are drawn. He is on empiric antibiotics: Vancomycin and cefepime. (4) Cardiac arrest: Code(s): I46.9 - Cardiac arrest, cause unspecified Status: Acute Assessment and Plan: Patient is getting supportive care. He is on a cooling blanket. (5) Type 2 diabetes mellitus: Code(s): E11.9 - Type 2 diabetes mellitus without complications Status: Acute Assessment and Plan: He was on Tradjenta on admission (6) Hyperlipidemia: Code(s): E78.5 - Hyperlipidemia, unspecified Status: Acute Assessment and Plan: he was on atorvastatin. History of Present Illness Reason for Consult Consult date: 03/28/22 Chief Complaint Chief complaint: Atrial fibrillation RVR History of Present Illness Narrative: Gerardo is an unfortunate 66-year-old gentleman who has coronary artery disease, congestive heart failure, hypertension, history of smoking in the past, hyperlipidemia, on Tradjenta, and history of stroke. The patient came into the hospital because of chest pain and near syncopal episode. He was riding his bike and developed fatigue and chest pain. He came to the ER. He was tachycardic. This spontaneously converted to sinus at a slower rate. He told the emergency room doctor that he did feel better at that time. He was admitted to the hospital. on Friday evening and Friday morning the patient developed progressively worsening shortness of breath. He was eventually moved to the ICU and intubated. He had a cardiac arrest. He had CPR for 30minutes according to the nurses. He had progressively increasing support. He was intubated and placed on pressors because of low blood pressure. He was hypoxic and so placed in the prone position and eventually given paralytics. He developed atrial fibrillation again and so was placed on an amiodarone drip. Currently he is on paralytics, amiodarone drip, and 2 pressors. He is also on two sedatives. His creatinine was 1.4 on admission. It fell to 1.3 on the but then on the it was 2.1 and then today is 3.5 so renal consultation was requested. The patient cannot give a history. There is no history of renal failure mentioned in the chart. Review of Systems Review of Systems: ROS unobtainable: Yes unobtainable due to medical condition [facility] Past Medical History Medical History (Updated 03/28/22 @ 16:29 by Darian Espinoza MD) CAD (coronary artery disease) CHF (congestive heart failure) History of stroke Hyperlipidemia Family History Family History Mother
[2022-03-28 16:21] LABS: Glucose Point of Care 139 mg/dl (65-105)
[2022-03-28 20:48] LABS: Glucose Point of Care 209 mg/dl (65-105)
[2022-03-28] MEDS: WARFARIN (*PBKC) 5 MG TABLET PO (20:50)
[2022-03-28] MEDS: ATORVASTATIN 40 MG TABLET 80 MG PO (20:50)
[2022-03-28] MEDS: INSULIN ASPART (*BKC) 100 UNITS/ML SUB-Q (20:51)
[2022-03-28 22:48] LABS: Cortisol Random > 123.00 ug/dL
[2022-03-29] VITALS (110 sets, daily range): BP systolic 84–119; BP diastolic 66–87; PULSE 60–77; RESP 15–30; TEMP 36.6–37.7; O2SAT 89–99
[2022-03-29] MEDS: ALBUMIN HUMAN 25% 25 GM/100 ML 100 ML IVPB ×4 (00:06→17:09)
[2022-03-29 00:28] LABS: Glucose Point of Care 193 mg/dl (65-105)
[2022-03-29] MEDS: AMIODARONE 360 MG/D5W 200 ML 360 MG/200 ML BAG 16.67 MG IV CONT ×2 (00:59→13:23)
[2022-03-29] MEDS: FENTANYL 2,500MCG/NS250ML(*CRX 2,500 MCG/250 ML BAG 20 MCG IV CONT ×2 (02:04→14:07)
[2022-03-29] MEDS: MIDAZOLAM 100MG/NS 100ML(*CRX) 100 MG/100 ML BAG 10 MG IV CONT ×3 (02:05→22:54)
[2022-03-29] MEDS: NOREPINEPHRINE 8 MG/D5W 250 ML 8 MG/250 ML BAG 15 MG IV CONT (02:06)
[2022-03-29] MEDS: CENTRAL LINE FLUSH 10 ML IV PUSH ×3 (05:38→21:07)
[2022-03-29] MEDS: HYDROCORTISONE SODIUM SUCCINATE 100 MG/2 ML VIAL IV PUSH ×3 (05:38→21:07)
[2022-03-29 05:41] LABS: Hematocrit 39.3 % (42.0-52.0); Hemoglobin 12.7 g/dL (14.0-18.0); Mean Corpuscular HGB Conc 32.3 g/dl (32-36); Mean Corpuscular Hemoglobin 25.7 pg (26-34); Mean Corpuscular Volume 79.6 fl (80-100); Mean Platelet Volume 11.3 fl (7.4-10.4); Platelet Count Result 142 k/mm3 (150-375); Red Blood Count 4.94 M/mm3 (4.6-6.20); Red Cell Distribution Width 17.3 % (11.5-14.5)
[2022-03-29 05:47] LABS: Glucose Point of Care 200 mg/dl (65-105)
[2022-03-29 06:05] LABS: Carboxyhemoglobin 0.3 % THb (0-2.0); Fractional Inspired Oxygen 55 %; Methemoglobin ABG 0.5 %THb (0-1.5); Oxygen Content ABG 18.3 %vol (16.0-22.0); Oxygen Saturation ABG 96.6 % (95.0-100.0); Oxyhemoglobin 95.4 % THb (90.0-100.0); PCO2 ABG 58.5 mmHg (35.0-45.0); PO2 ABG 100.1 mmHg (80.0-100.0); PO2 FiO2 Ratio Arterial Blood 1.82 %; Reduced Hemoglobin 3.8 %THb (0-5.0); Total Hemoglobin 13.6 g/dL (12.0-18.0)
[2022-03-29 06:24] LABS: Device VENTILATOR; Modified Allen's Test Unable to perform; Site Drawn LEFT RADIAL; pH ABG 7.266 (7.350-7.450)
[2022-03-29 06:25] LABS: Arterial Blood Gas PEEP 10 cmH2O; Arterial Blood Gas Tidal Volume 450 ml; Arterial Blood Gas Vent Mode CMV; Arterial Blood Gas Ventilator rate 24 /MIN
[2022-03-29 07:05] LABS: Prothrombin Time 57.5 Seconds (11.1-14.7)
[2022-03-29 07:39] LABS: INR 6.8
[2022-03-29 07:45] LABS: Albumin Level 4.3 g/dL (3.5-5.1); Anion Gap 17 mmol/L (8-16); Blood Urea Nitrogen 57 mg/dL (9-20); Calcium 7.5 mg/dL (8.4-10.2); Carbon Dioxide 26 mmol/L (22-30); Chloride 97 mmol/L (98-107); Estimated CRCL calculation 16 ml/min; Estimated Glomerular Filt Rate 13; Glucose 173 mg/dL (65-110); Potassium 5.1 mmol/L (3.4-5.0); Sodium 140 mmol/L (137-145)
[2022-03-29 08:08] LABS: Glucose Point of Care 138 mg/dl (65-105)
[2022-03-29] MEDS: PANTOPRAZOLE SODIUM IV 40 MG VIAL IV PUSH (08:18)
[2022-03-29] MEDS: MINERAL OIL/WHITE PETROLATUM OINTMENT 1 APPLIC EACH EYE ×2 (08:19→21:07)
[2022-03-29] MEDS: INSULIN GLARGINE (*BKC) 100 UNITS/ML 15 UNITS SUB-Q (08:19)
[2022-03-29] MEDS: PHYTONADIONE INJ 10 MG/ML AMP IM (08:20)
[2022-03-29] MEDS: CLOPIDOGREL BISULFATE 75 MG TABLET PO (08:20)
[2022-03-29] MEDS: SODIUM BICARBONATE 8.4% 50 MEQ/50 ML SYRINGE 100 MEQ IV PUSH (08:20)
--- NOTE | 2022-03-29 09:00 | WPDINTPN ---
Progress Note: A&P Assessment and Plan (1) Respiratory failure: Code(s): J96.90 - Respiratory failure, unspecified, unspecified whether with hypoxia or hypercapnia Status: Acute Assessment and Plan: Severe acute hypoxic respiratory failure secondary to pulmonary edema Patient was intubated 03/27 early in the morning and placed on mechanical ventilation He is currently on 10 of PEEP 55 % FiO2. His saturation was low and I had to increase PEEP to 12 and FiO2 to 70%. ABG reviewed Increase rate to 28. Continue tidal volume of 450 Chest x-ray reviewed I will hold Nimbex infusion and see if patient tolerates coming off of paralytic (2) Shock: Code(s): R57.9 - Shock, unspecified Status: Acute Assessment and Plan: Continue Levophed and vasopressin Continue stress dose steroids (3) Type 2 diabetes mellitus: Code(s): E11.9 - Type 2 diabetes mellitus without complications Status: Acute Assessment and Plan: Sliding scale insulin and Lantus (4) Acute on chronic systolic CHF (congestive heart failure): Code(s): I50.23 - Acute on chronic systolic (congestive) heart failure Status: Acute Assessment and Plan: Baseline cardiac function but Echo done here at [place] on this as physician shows ? 1. Left ventricular systolic function is severely reduced, estimated at <15%. ? 2. Right ventricular systolic function is reduced. ? 3. Left atrial chamber dimension is severely enlarged. ? 4. There is severe mitral valve regurgitation Likely this has been worsened by his uncontrolled AFib with RVR (5) Cardiomyopathy: Code(s): I42.9 - Cardiomyopathy, unspecified Status: Acute Assessment and Plan: See above (6) JANIE (acute kidney injury): Code(s): N17.9 - Acute kidney failure, unspecified Status: Acute Assessment and Plan: Increase in creatinine to 5.3 today Potassium 5.1 which is likely worsened with acidosis 2 amps of bicarb given. P.o. Bhavik ordered I spoke to patient's family yesterday the patient may need hemodialysis. I again spoke to patient's daughter and she told me that the family is not sure if patient would want hemodialysis. They want to discuss further family meeting today before making a decision. I will discuss with them once they get here this morning Continue to maintain mean arterial perfusion. Continue vasopressors if needed With pressors CK level was elevated at 972 Nephrology is following (7) Cardiac arrest: Code(s): I46.9 - Cardiac arrest, cause unspecified Status: Acute Assessment and Plan: Patient's cardiac arrest is likely combination of respiratory and cardiac issues. Patient had hypoxic respiratory failure from pulmonary edema and also was AFib with RVR and also has cardiomyopathy with EF less than 15% and severe MR. He was cardioverted 03/27 opening any continues to be in sinus rhythm Monitor and treat electrolytes. This does not appear to be ACS With prolonged down time patient may have anoxic injury although there is no way to assess at this time since patient is already sedated and chemically paralyzed. Patient also remained in and unstable rhythm with shock until this morning until he was cardioverted. Also had a PEA arrest which has not shown consistent benefit with TTM. Patient is also out of 6 hour time frame window of initiating TTM. Despite that I started patient on moderate TTM to try to keep his temperature less than 36 C for next 24 hours. He completed 24 hours of the TTM yesterday evening and now rewarming 03/[address] 1. Areas of prior infarction with subtle area of low attenuation in the medial aspect of the left parietal lobe which could reflect an early infarct. 2. Age related findings. Paralytic has been discontinued. Will try sedation holiday once paralytic wears off (8) Atrial fibrillation with RVR: Code(s): I48.91 - Unspecified atrial fibrillation Status
[2022-03-29 09:10] LABS: Phosphorus 8.5 mg/dL (2.5-4.5)
[2022-03-29] MEDS: SODIUM ZIRCONIUM CYCLOSILICATE 10 GM POWD.PACK PO ×2 (10:43→17:33)
--- NOTE | 2022-03-29 11:06 | PCNFU ---
Nutrition Follow-Up Complete: Inadequate Oral Intake as related to mechanical ventilation as evidenced by NPO. Goal: Meet estimated nutritional needs Patient has limited progress on goal. We will continue current goal. Pt current nutrition is NPO x 3 days. Nutrition recommendation: Nepro at 20 ml/hr advance by 10 ml q 4 hours to goal rate of 50 ml/hr. Last recorded weight is 106.6 kg. Bowel Motility: Hypoactive bowel sounds. Labs Reviewed: Cr 5.3,BUN 57, GFR 13, K 5.1,Glu 173 Meds Noted:Fentanyl, Versed, Nimbex, Vasopressin, Solu Cortef, Cefepime, Plavix, Protonix, Lantus, Levophed. Skin: WNL Additional Notes: Patient remains NPO x 3 days. Plans to start tube feedings of Nepro today. Recommend: 20 ml/hr advance by 10 ml q 4 hours to goal rate of 50 ml/hr. Goal rate will provide 1980 kcals/89 gms protein/800 ml water. Free water flush 30 ml q 4 hours. Agree with diet orders. Will monitor in ICU rounds and reassessing every Friday and Friday.
--- NOTE | 2022-03-29 11:15 | PM.PNCARD ---
Progress Note: A&P Assessment and Plan (1) Acute on chronic systolic CHF (congestive heart failure): Code(s): I50.23 - Acute on chronic systolic (congestive) heart failure Status: Acute Plan 66-year-old man with severe cardiomyopathy remains hospitalized in the ICU on ventilator support. Hemodynamics are acceptable with pressor support and oxygenation is acceptable on the ventilator. His neurological prognosis I believe is quite poor since he had no pulse for 45 minutes earlier in the week. There is a long conversation going on with the patient family at this time in terms of the level of aggressiveness that they wish to maintain. I did speak to them at some length and made the point that his renal failure is a result of his heart disease and not intrinsic kidney disease in that dialysis if that is initiated will not improve or resolve his cardiomyopathy. Continue aggressive supportive care as long as that is desired. Paolo Dunn MD [facility] Subjective Date/time seen: Date of service:03/29/22 11:15 Interval history: Follow-up visit in this 66-year-old man with: Severe dilated cardiomyopathy with systolic heart failure patient now in the ICU following PEA arrest earlier in this hospitalization and patient remains on the ventilator now has significant worsening renal function and remains on pressor support and is unresponsive. Exam Const: Other: Unresponsive black male appears his stated age on ventilator support in the ICU HENMT: Mouth: Yes moist mucous membranes Eyes: Sclera: sclerae normal Neck: Neck: supple Resp: Other: scattered rhonchi Cardio: Rate: regular rate Rhythm: regular rhythm Other: PMI is not palpable no audible murmur GI: GI Palp: Yes Soft to palpation Auscultation: normal bowel sounds Urinary Catheter: Urinary Catheter: patent and draining Skin: General skin exam: normal color Neuro: Other: unresponsive Objective Data Vital Signs Vital Signs: Vital Signs - 24 hr 03/28/22 11:33 03/28/22 12:47 03/28/22 12:58 Temperature Pulse Rate 116 H 114 H 114 H Respiratory Rate 24 H 24 H Blood Pressure 83/66 L 83/66 L Pulse Oximetry 96 Oxygen Delivery Mechanical Ventilation Fraction of Inspired Oxygen 30 03/28/22 13:04 03/28/22 12:00 03/28/22 13:00 Temperature 36.1 C L 36.0 C L Pulse Rate 115 H 73 112 H Respiratory Rate 24 H 24 H Blood Pressure 76/62 L 86/67 L 76/62 L Pulse Oximetry 91 92 Oxygen Delivery Fraction of Inspired Oxygen 03/28/22 12:00 03/28/22 12:00 03/28/22 12:00 Temperature Pulse Rate 116 H Respiratory Rate Blood Pressure Pulse Oximetry 92 Oxygen Delivery Mechanical Ventilation Fraction of Inspired Oxygen 30 30 03/28/22 13:46 03/28/22 14:04 03/28/22 14:04 Temperature Pulse Rate 114 H 115 H 115 H Respiratory Rate 24 H 24 H Blood Pressure 75/63 L Pulse Oximetry Oxygen Delivery Fraction of Inspired Oxygen 03/28/22 14:05 03/28/22 14:08 03/28/22 14:00 Temperature 36.0 C L Pulse Rate 115 H 115 H 114 H Respiratory Rate 24 H Blood Pressure 76/61 L 76/61 L 76/61 L Pulse Oximetry 91 Oxygen Delivery Fraction of Inspired Oxygen 03/28/22 14:00 03/28/22 14:24 03/28/22 14:30 Temperature Pulse Rate 115 H 115 H 61 Respiratory Rate Blood Pressure 76/61 L Pulse Oximetry 97 Oxygen Delivery Mechanical Ventilation Fraction of Inspired Oxygen 30 03/28/22 15:09 03/28/22 15:14 03/28/22 15:00 Temperature 36.3 C L Pulse Rate 61 60 60 Respiratory Rate 24 H Blood Pressure 80/66 L 83/68 L 80/66 L Pulse Oximetry 93 Oxygen Delivery Fraction of Inspired Oxygen 03/28/22 16:00 03/28/22 16:16 03/28/22 16:00 Temperature 36.2 C L Pulse Rate 61 65 63 Respiratory Rate 24 H Blood Pressure 116/88 120/89 120/89 Pulse Oximetry 90 Oxygen Delivery Fraction of Inspired Oxygen 03/28/22 16:00 03/28/22 16:00 03/28/22 16:00
--- NOTE | 2022-03-29 11:59 | PM.PNNEP ---
Progress Note: A&P Assessment and Plan (1) JANIE (acute kidney injury): Code(s): N17.9 - Acute kidney failure, unspecified Status: Acute Assessment and Plan: the patient has a near normal baseline creatinine. he has acute kidney injury currently. Urine electrolytes pre renal. CPK is mildly high. Not high enough for damage to the kidneys but will repeat. Renal ultrasound is normal most likely this is ATN from his severe hypotension. Pre renal azotemia may be playing a role as well because of the very poor heart function. The patient does have pulmonary infiltrates and is on 55% oxygen and also has some defects in CO2 exchange. Removing fluid would be helpful for this however his blood pressure is so low that we may not be able to achieve this with dialysis. His potassium level is on the rise. I discussed with Dr. Payne who is going to talk with the family. The 4 children are going to get together in a little bit and decide on aggressiveness of care. If they continue to be aggressive he is going to get some FFP and vitamin K and have a catheter placed. Will try to do dialysis today if the family agrees. I discussed the case with the son and answered questions that he had. (2) CHF (congestive heart failure): Code(s): I50.9 - Heart failure, unspecified Status: Acute Assessment and Plan: The patient has an ejection fraction of less than 15% and severe mitral valve regurgitation. (3) Sepsis: Code(s): A41.9 - Sepsis, unspecified organism Status: Acute Assessment and Plan: Blood cultures are drawn. These are negative so far. He is on empiric antibiotics: Vancomycin and cefepime. (4) Cardiac arrest: Code(s): I46.9 - Cardiac arrest, cause unspecified Status: Acute Assessment and Plan: Patient is getting supportive care. He finished the cooling period. (5) Type 2 diabetes mellitus: Code(s): E11.9 - Type 2 diabetes mellitus without complications Status: Acute Assessment and Plan: He was on Tradjenta on admission (6) Hyperlipidemia: Code(s): E78.5 - Hyperlipidemia, unspecified Status: Acute Assessment and Plan: he was on atorvastatin. Subjective Date/time seen: 03/29/22 11:59 Interval history: Patient is still sedated. On the ventilator. He is in the supine position. He is off the Nimbex. He is still on vasopressin, and a lower dose of norepinephrine. Review of Systems Cardiovascular: Cardiovascular: Reports no additional cardiovascular complaints Respiratory: Respiratory: Reports no additional respiratory complaints Gastrointestinal: Gastrointestinal: Reports no additional gastrointestinal complaints Genitourinary: Genitourinary: Reports no additional male genitourinary complaints Exam Narrative: WDWN in NAD skin no rash head ncat lungs coarse bilaterally cor reg no rub or gallop abd BS+ nontender and soft ext no edema. Objective Data Vital Signs Vital Signs: Vital Signs - 24 hr 03/28/22 12:47 03/28/22 12:58 03/28/22 13:04 Temperature Pulse Rate 114 H 114 H 115 H Respiratory Rate 24 H 24 H Blood Pressure 83/66 L 83/66 L 76/62 L Pulse Oximetry Oxygen Delivery Fraction of Inspired Oxygen 03/28/22 12:00 03/28/22 13:00 03/28/22 12:00 Temperature 36.1 C L 36.0 C L Pulse Rate 73 112 H Respiratory Rate 24 H 24 H Blood Pressure 86/67 L 76/62 L Pulse Oximetry 91 92 Oxygen Delivery Fraction of Inspired Oxygen 03/28/22 12:00 03/28/22 12:00 03/28/22 13:46 Temperature Pulse Rate 116 H 114 H Respiratory Rate Blood Pressure 75/63 L Pulse Oximetry 92 Oxygen Delivery Mechanical Ventilation Fraction of Inspired Oxygen 03/28/22 14:04 03/28/22 14:04 03/28/22 14:05 Temperature Pulse Rate 115 H 115 H 115 H Respiratory Rate 24 H 24 H Blood Pressure 76/61 L Pulse Oximetry
[2022-03-29 12:02] LABS: Glucose Point of Care 169 mg/dl (65-105)
[2022-03-29] MEDS: VASOPRESSIN INJ 100 UNITS in DEXTROSE 5% 95 ML IV CONT (12:46)
[2022-03-29 13:03] LABS: Anion Gap 14 mmol/L (8-16); Blood Urea Nitrogen 62 mg/dL (9-20); Calcium 7.3 mg/dL (8.4-10.2); Carbon Dioxide 26 mmol/L (22-30); Chloride 97 mmol/L (98-107); Estimated CRCL calculation 15 ml/min; Estimated Glomerular Filt Rate 13; Glucose 182 mg/dL (65-110); Potassium 5.1 mmol/L (3.4-5.0); Sodium 137 mmol/L (137-145)
[2022-03-29 13:05] LABS: INR 10.4
--- NOTE | 2022-03-29 13:10 | PM.EVENT ---
Event Note Event Note Event Note: I had a long meeting with patient's children at bedside in presence of patient's nurse. I also met with the clinical program coordinator Dr. Dunn earlier. We again discussed patient's current status including respiratory failure, shock, worsening renal function for hemodialysis. I also discussed the patient will need blood products verses INR for dialysis catheter insertion. They at this time have not made any decision that they want hemodialysis are not and would like to further discuss with the family members regarding goals of care. They told me that they are waiting for additional family members to arrive.. Meanwhile I recheck his BMP and his potassium is at 5.1 which is not critical and bicarb is in normal range. INR instead is 10.4 for now. Patient was given vitamin K earlier go ahead and give Kcentra at 25 units per kg to prevent risk of bleeding a bring INR close to controlled range. I will repeat INR later today and if not accept lead decreased will give further 25 units/kg dose. Will wait for INR to down to reasonable range before dialysis catheter insertion in case family decides to proceed with dialysis after family meetings.
[2022-03-29] MEDS: CALCIUM CHLOR 1,000MG/100ML NS 1,000 MG/100 ML BAG 100 MG IVPB (13:40)
[2022-03-29] MEDS: FUROSEMIDE INJ 100 MG/10 ML VIAL 80 MG IV PUSH (13:42)
[2022-03-29] MEDS: HUMAN PROTHROMBIN COMPLEX(PCC) 5,000 UNITS in PREMIXIV 0 ML 504 UNITS IV CONT (14:01)
--- NOTE | 2022-03-29 14:45 | PM.EVENT ---
Event Note Event Note Event Note: Late entry I met with patient's sister, brother and 3 children children again yesterday around 2:45 p.m.. We again had long discussion where I explained patient's current status including respiratory failure, coagulopathy, acute renal failure, cardiomyopathy, severe MR possible anoxic injury and guarded prognosis. I again explained them possible outcome ranging from complete recovery, to prolonged need for mechanical ventilation and on hemodialysis if patient survives and possibility of him not surviving this hospitalization. After discussion they decided to make patient DNR but continue current treatment during hemodialysis. Total Critical Care Time spent since morning evaluation including multiple meeting and coordinating care-60minutes Due to a high probability of clinically significant, life threatening deterioration, the patient required my highest level of preparedness to intervene emergently and I personally spent this critical care time directly and personally managing the patient. This critical care time included obtaining a history; examining the patient; pulse oximetry; ordering and review of studies; arranging urgent treatment with development of a management plan; evaluation of patient's response to treatment; frequent reassessment; and discussions with other providers. It was exclusive of separately billable procedures and treating other patients and teaching time. Please see Assessment and Plan section and the rest of the note for further information on patient assessment and treatment
[2022-03-29 16:16] LABS: Glucose Point of Care 157 mg/dl (65-105)
[2022-03-29 16:35] LABS: INR 1.7
[2022-03-29 20:19] LABS: Glucose Point of Care 167 mg/dl (65-105)
[2022-03-29] MEDS: ATORVASTATIN 40 MG TABLET 80 MG PO (21:07)
[2022-03-29 22:16] LABS: Hepatitis B Surface Antigen Negative (Negative)
[2022-03-29 22:33] LABS: Hepatitis B Surface Anti Res Negative
[2022-03-30] VITALS (146 sets, daily range): BP systolic 85–152; BP diastolic 57–99; PULSE 48–68; RESP 13–32; TEMP 35.5–37.7; O2SAT 86–100
[2022-03-30] MEDS: ALBUMIN HUMAN 25% 25 GM/100 ML 100 ML IVPB ×4 (00:22→17:04)
[2022-03-30 00:42] LABS: Glucose Point of Care 175 mg/dl (65-105)
[2022-03-30] MEDS: AMIODARONE 360 MG/D5W 200 ML 360 MG/200 ML BAG 16.67 MG IV CONT (01:28)
[2022-03-30] MEDS: FENTANYL 2,500MCG/NS250ML(*CRX 2,500 MCG/250 ML BAG 17.5 MCG IV CONT (01:56)
[2022-03-30] MEDS: levETIRAcetam 1000MG/NACL100ML 1,000 MG/100 ML BAG 400 MG IVPB (02:35)
[2022-03-30 04:04] LABS: Glucose Point of Care 173 mg/dl (65-105)
[2022-03-30 04:55] LABS: Fractional Inspired Oxygen 45 %; Methemoglobin ABG 0.3 %THb (0-1.5)
[2022-03-30] MEDS: HYDROCORTISONE SODIUM SUCCINATE 100 MG/2 ML VIAL IV PUSH (05:21)
[2022-03-30] MEDS: CENTRAL LINE FLUSH 10 ML IV PUSH ×3 (05:21→20:05)
[2022-03-30 05:28] LABS: Hemoglobin 10.1 g/dL (14.0-18.0); Immature Platelet Fraction Pct 8.9 % (0.9-11.2); Mean Corpuscular HGB Conc 32.6 g/dl (32-36); Mean Corpuscular Hemoglobin 25.9 pg (26-34); Mean Corpuscular Volume 79.5 fl (80-100); Mean Platelet Volume 12.5 fl (7.4-10.4); Platelet Count Result 88 k/mm3 (150-375); Red Cell Distribution Width 16.4 % (11.5-14.5); White Blood Count 16.5 K/mm3 (4.5-10.0)
[2022-03-30 05:28] LABS: Device VENTILATOR; Modified Allen's Test Pass; Site Drawn LEFT RADIAL
[2022-03-30 05:37] LABS: Fibrinogen 235 mg/dl (215-510)
[2022-03-30 05:38] LABS: INR 2.3; Prothrombin Time 24.6 Seconds (11.1-14.7)
[2022-03-30 05:58] LABS: Albumin Level 3.6 g/dL (3.5-5.1); Anion Gap 17 mmol/L (8-16); Blood Urea Nitrogen 81 mg/dL (9-20); Calcium 7.3 mg/dL (8.4-10.2); Carbon Dioxide 26 mmol/L (22-30); Chloride 96 mmol/L (98-107); Creatine Kinase 1458 U/L (55-170); Estimated CRCL calculation 12 ml/min; Estimated Glomerular Filt Rate 10; Glucose 174 mg/dL (65-110); Magnesium 2.1 mg/dL (1.6-2.3); Phosphorus 8.8 mg/dL (2.5-4.5); Potassium 4.9 mmol/L (3.4-5.0); Sodium 139 mmol/L (137-145)
[2022-03-30 05:59] LABS: Alveolar/Arterial O2 Gradient 158.7 mmHg; Base Excess ABG -2.3 mEq/l (+/-2.0); HCO3 ABG 23.7 mEq/l (22.0-26.0); Oxygen Content ABG 14.9 %vol (16.0-22.0); Oxygen Saturation ABG 97.7 % (95.0-100.0); PO2 ABG 109.8 mmHg (80.0-100.0); Total Hemoglobin 10.9 g/dL (12.0-18.0)
[2022-03-30 06:00] LABS: Carboxyhemoglobin 0.3 % THb (0-2.0); Oxyhemoglobin 96.1 % THb (90.0-100.0); PO2 FiO2 Ratio Arterial Blood 2.44 %; Reduced Hemoglobin 3.3 %THb (0-5.0)
[2022-03-30 06:01] LABS: Arterial Blood Gas PEEP 12 cmH2O; Arterial Blood Gas Tidal Volume 450 ml; Arterial Blood Gas Vent Mode CMV; Arterial Blood Gas Ventilator rate 28 /MIN
[2022-03-30 06:27] LABS: Vancomycin Trough 18.3 ug/mL (10.0-20.0)
[2022-03-30 07:55] LABS: Glucose Point of Care 158 mg/dl (65-105)
--- NOTE | 2022-03-30 08:44 | P.PCNBED_ITS ---
Procedures Hemodialysis Catheter Placement Right IJ: Discussed w/ patient and/or surrogate, the non-emergent placement of a hemodialysis catheter, including it's clinincal necessity/indication & associated potential risks & complications.: Yes The patient and/or surrogate understand(s) and acknowledge(s) the need to proceed with hemodialysis catheter insertion as an important element of the patient's clinical management.: Yes Consent: Consent was obtained from patient's daughter after explanation of procedures including risk benefit. Risk of excessive risk of bleeding was explained due to patient's being coagulopathic. Was given Kcentra yesterday to try to bring his INR down HD Catheter Date: 03/30/22 HD Catheter Time: 08:00 Pre-procedural Time-Out was completed immediately before starting the procedure and confirmed: Patient Identification, Site, Procedure, Patient Pos ition and the Availability of Requisite Equipment.: Yes Patient Position: supine Patient Placed on Monitor/Pulse Ox: Yes Provider Prep: mask, sterile gown, sterile gloves, Max. sterile barrier precautions, cap and hand hygiene Hemodialysis Catheter Prep: Povidone-Iodine 1% Ultrasound Used for Placement: Yes Hemodialysis Catheter Inserted: triple Length (cm): 20 Depth of Insertion (cm): 20 Post Procedure: sutured in place, good blood return, all ports aspirated, flushed, capped, transparent dressing and aseptic technique maintained throughout procedure Post Procedure X-Ray: tip of catheter in good position and no pneumothorax seen Patient Tolerated Procedure: well Complications: none
--- NOTE | 2022-03-30 08:46 | WPDINTPN ---
Progress Note: A&P Assessment and Plan (1) Respiratory failure: Code(s): J96.90 - Respiratory failure, unspecified, unspecified whether with hypoxia or hypercapnia Status: Acute Assessment and Plan: Severe acute hypoxic respiratory failure secondary to pulmonary edema Patient was intubated 03/27 early in the morning and placed on mechanical ventilation He is currently on 12 of PEEP and 45 % FiO2. Will try to wean down peep. ABG reviewed -continue rate of 28. Continue tidal volume of 450 Chest x-ray reviewed -with dry due to by 1 cm I will hold Nimbex infusion and see if patient tolerates coming off of paralytic (2) Shock: Code(s): R57.9 - Shock, unspecified Status: Acute Assessment and Plan: Continue vasopressin Levophed off Will discontinue stress dose steroids (3) Type 2 diabetes mellitus: Code(s): E11.9 - Type 2 diabetes mellitus without complications Status: Acute Assessment and Plan: Sliding scale insulin and Lantus (4) Acute on chronic systolic CHF (congestive heart failure): Code(s): I50.23 - Acute on chronic systolic (congestive) heart failure Status: Acute Assessment and Plan: Baseline cardiac function but Echo done here at [place] on this as physician shows ? 1. Left ventricular systolic function is severely reduced, estimated at <15%. ? 2. Right ventricular systolic function is reduced. ? 3. Left atrial chamber dimension is severely enlarged. ? 4. There is severe mitral valve regurgitation Likely this has been worsened by his uncontrolled AFib with RVR (5) Cardiomyopathy: Code(s): I42.9 - Cardiomyopathy, unspecified Status: Acute Assessment and Plan: See above (6) JANIE (acute kidney injury): Code(s): N17.9 - Acute kidney failure, unspecified Status: Acute Assessment and Plan: Increase in creatinine to 6.7 today Potassium 4.9 . Acid-base status is acceptable with urine output remains poor despite Lasix Patient needs dialysis for volume removal Currently on p.o. Lokelma ordered I had multiple discussions with the family members regarding initiating hemodialysis but they could not make any decision. And yesterday afternoon they agreed to proceed with hemodialysis. Patient's INR was high putting him at risk of bleeding. Patient was given Kcentra to reverse coagulopathy. 03/30 temporary hemodialysis catheter placed in right IJ. Discussed case with Nephrology yesterday afternoon. Plan to initiate hemodialysis today Patient also has mild rhabdomyolysis. Most recent CK level is 1458 (7) Cardiac arrest: Code(s): I46.9 - Cardiac arrest, cause unspecified Status: Acute Assessment and Plan: Patient's cardiac arrest is likely combination of respiratory and cardiac issues. Patient had hypoxic respiratory failure from pulmonary edema and also was AFib with RVR and also has cardiomyopathy with EF less than 15% and severe MR. He was cardioverted 03/27 opening any continues to be in sinus rhythm Monitor and treat electrolytes. This does not appear to be ACS With prolonged down time patient may have anoxic injury although there is no way to assess at this time since patient is already sedated and chemically paralyzed. Patient also remained in and unstable rhythm with shock until this morning until he was cardioverted. Also had a PEA arrest which has not shown consistent benefit with TTM. Patient is also out of 6 hour time frame window of initiating TTM. Despite that I started patient on moderate TTM to try to keep his temperature less than 36 C for next 24 hours. He completed 24 hours of the TTM yesterday evening and now rewarming 03/[address] 1. Areas of prior infarction with subtle area of low attenuation in the medial aspect of the left parietal lobe which could reflect an early infarct. 2. Age related findings. Paralytic has been discontinued. I have not been able to perform a comp
[2022-03-30] MEDS: MIDAZOLAM 100MG/NS 100ML(*CRX) 100 MG/100 ML BAG 10 MG IV CONT (09:01)
[2022-03-30] MEDS: INSULIN GLARGINE (*BKC) 100 UNITS/ML 15 UNITS SUB-Q (09:06)
[2022-03-30] MEDS: MINERAL OIL/WHITE PETROLATUM OINTMENT 1 APPLIC EACH EYE ×2 (09:06→20:05)
[2022-03-30] MEDS: PANTOPRAZOLE SODIUM IV 40 MG VIAL IV PUSH (09:06)
[2022-03-30] MEDS: CLOPIDOGREL BISULFATE 75 MG TABLET PO (09:07)
[2022-03-30] MEDS: CALCIUM GLUC 2,000 MG/NS 100ML 2,000 MG/100 ML BAG 100 MG IVPB (09:07)
[2022-03-30] MEDS: levETIRAcetam 500MG/NACL 100ML 500 MG/100 ML BAG 400 MG IVPB ×2 (10:14→20:04)
--- NOTE | 2022-03-30 10:54 | PM.PNNEP ---
Progress Note: A&P Assessment and Plan (1) JANIE (acute kidney injury): Code(s): N17.9 - Acute kidney failure, unspecified Status: Acute Assessment and Plan: the patient has a near normal baseline creatinine. he has acute kidney injury currently. Urine electrolytes pre renal. CPK is mildly high. Not high enough for damage to the kidneys but will repeat. Renal ultrasound is normal most likely this is ATN from his severe hypotension. Pre renal azotemia may be playing a role as well because of the very poor heart function. the patient's potassium is better but his fluid is becoming more of a problem. His FiO2 is up to 70% now. He does have a lot of swelling. Discussed with Dr Payne. the patient INR was very high yesterday but was given medicine and now his INR is down to 2. So he placed a dialysis catheter. I talked with the daughter at length. We discussed the case. He also discussed dialysis. We discussed the risks including hypotension, sometimes so low to cause stroke heart attack or , the process, and the alternatives. Also discussed the benefits. If the patient does not get dialysis the fluid will likely buildup in the poisons will buildup and the patient could not survive. He is a very sick man. We are doing dialysis very gently right now and giving albumin to try to keep the blood pressure up. I talked with the floor nurse who has norepinephrine at the bedside on standby in case he needs something for his blood pressure. I talked with the dialysis nurse who will start with dry ultrafiltration and start slowly and gradually build up the ultrafiltration to make sure he tolerates this. The daughter agrees to proceed. We discussed at length. The patient's daughter had questions and I answered them as best as I could. 25 minutes were spent discussing with Dr. Payne, the dialysis nurse, and family Apart from clinical activities.. (2) CHF (congestive heart failure): Code(s): I50.9 - Heart failure, unspecified Status: Acute Assessment and Plan: The patient has an ejection fraction of less than 15% and severe mitral valve regurgitation. (3) Sepsis: Code(s): A41.9 - Sepsis, unspecified organism Status: Acute Assessment and Plan: Blood cultures are drawn. These are negative so far. He is on empiric antibiotics: Vancomycin and cefepime. (4) Cardiac arrest: Code(s): I46.9 - Cardiac arrest, cause unspecified Status: Acute Assessment and Plan: Patient is getting supportive care. He finished the cooling period. (5) Type 2 diabetes mellitus: Code(s): E11.9 - Type 2 diabetes mellitus without complications Status: Acute Assessment and Plan: He was on Tradjenta on admission (6) Hyperlipidemia: Code(s): E78.5 - Hyperlipidemia, unspecified Status: Acute Assessment and Plan: he was on atorvastatin. Subjective Date/time seen: 03/30/22 10:54 Interval history: Patient is on the ventilator. He has sedated but no longer on paralytics. He is on vasopressin 0.04 but off norepinephrine for now. His FiO2 is up to 70%. Exam Narrative: WDWN in NAD skin no rash Her subcu nodules head ncat lungs coarse bilaterally cor reg no rub or gallop abd BS+ nontender and soft ext 2+ edema. Objective Data Vital Signs Vital Signs: Vital Signs - 24 hr 03/29/22 11:00 03/29/22 11:01 03/29/22 11:27 Temperature 37.3 C 37.3 C Pulse Rate 65 65 63 Respiratory Rate 28 H 28 H Blood Pressure 98/80 L Pulse Oximetry 97 97 98 Oxygen Delivery Mechanical Ventilation Fraction of Inspired Oxygen 50 03/29/22 11:50 03/29/22 12:00 03/29/22 12:00 Temperature Pulse Rate 64 64 Respiratory Rate 28 H Blood Pressure Pulse Oximetry 96 Oxygen Delivery Mechanical Ventilation Fraction of Inspired Oxygen 50 03/29/22 12:00 03/29/22 12:46 09
[2022-03-30] MEDS: SODIUM ZIRCONIUM CYCLOSILICATE 10 GM POWD.PACK PO (11:15)
[2022-03-30 11:30] LABS: Glucose Point of Care 156 mg/dl (65-105)
[2022-03-30] MEDS: FENTANYL 2,500MCG/NS250ML(*CRX 2,500 MCG/250 ML BAG 20 MCG IV CONT (14:16)
[2022-03-30 15:52] LABS: Glucose Point of Care 144 mg/dl (65-105)
[2022-03-30] MEDS: METOCLOPRAMIDE HCL 10 MG/10 ML SOLN UDC PO (18:03)
[2022-03-30 20:01] LABS: Glucose Point of Care 180 mg/dl (65-105)
[2022-03-30] MEDS: ATORVASTATIN 40 MG TABLET 80 MG PO (20:04)
[2022-03-30] MEDS: MIDAZOLAM 100MG/NS 100ML(*CRX) 100 MG/100 ML BAG IV CONT (22:13)
[2022-03-31] VITALS (123 sets, daily range): BP systolic 84–116; BP diastolic 64–84; PULSE 52–65; RESP 18–32; TEMP 36.8–37.3; O2SAT 88–99
[2022-03-31] MEDS: ALBUMIN HUMAN 25% 25 GM/100 ML 100 ML IVPB ×2 (00:24→05:50)
[2022-03-31] MEDS: METOCLOPRAMIDE HCL 10 MG/10 ML SOLN UDC PO ×4 (00:25→17:15)
[2022-03-31 00:29] LABS: Glucose Point of Care 153 mg/dl (65-105)
[2022-03-31 04:52] LABS: Glucose Point of Care 149 mg/dl (65-105)
[2022-03-31 04:58] LABS: Hematocrit 27.9 % (42.0-52.0); Hemoglobin 9.3 g/dL (14.0-18.0); Immature Platelet Fraction Pct 9.9 % (0.9-11.2); Mean Corpuscular HGB Conc 33.3 g/dl (32-36); Mean Corpuscular Hemoglobin 25.6 pg (26-34); Mean Corpuscular Volume 76.9 fl (80-100); Mean Platelet Volume 11.4 fl (7.4-10.4); Platelet Count Result 77 k/mm3 (150-375); Red Blood Count 3.63 M/mm3 (4.6-6.20); Red Cell Distribution Width 15.9 % (11.5-14.5); White Blood Count 10.5 K/mm3 (4.5-10.0)
[2022-03-31 05:04] LABS: Alanine Aminotransferase 101 U/L (6-50); Alkaline Phosphatase 57 U/L (38-126); Anion Gap 17 mmol/L (8-16); Aspartate Amino Transferase 81 U/L (17-59); Bilirubin,Total 1.7 mg/dL (0.2-1.3); Blood Urea Nitrogen 86 mg/dL (9-20); Calcium 7.6 mg/dL (8.4-10.2); Carbon Dioxide 26 mmol/L (22-30); Chloride 96 mmol/L (98-107); Estimated CRCL calculation 11 ml/min; Estimated Glomerular Filt Rate 9; Glucose 145 mg/dL (65-110); Magnesium 2.3 mg/dL (1.6-2.3); Phosphorus 5.9 mg/dL (2.5-4.5); Sodium 139 mmol/L (137-145)
[2022-03-31 05:09] LABS: INR 2.1
[2022-03-31 05:39] LABS: Alveolar/Arterial O2 Gradient 95.3 mmHg; Base Excess ABG -1.3 mEq/l (+/-2.0); Carboxyhemoglobin 0.2 % THb (0-2.0); Device VENTILATOR; Fractional Inspired Oxygen 30 %; HCO3 ABG 22.5 mEq/l (22.0-26.0); Methemoglobin ABG 0.4 %THb (0-1.5); Modified Allen's Test Unable to perform; Oxygen Content ABG 13.9 %vol (16.0-22.0); Oxyhemoglobin 92.8 % THb (90.0-100.0); PCO2 ABG 34.4 mmHg (35.0-45.0); PO2 ABG 78.2 mmHg (80.0-100.0); PO2 FiO2 Ratio Arterial Blood 2.61 %; Reduced Hemoglobin 6.6 %THb (0-5.0); Site Drawn LEFT RADIAL; Total Hemoglobin 10.6 g/dL (12.0-18.0); pH ABG 7.434 (7.350-7.450)
[2022-03-31 05:40] LABS: Arterial Blood Gas PEEP 12 cmH2O; Arterial Blood Gas Tidal Volume 450 ml; Arterial Blood Gas Vent Mode CMV; Arterial Blood Gas Ventilator rate 28 /MIN
[2022-03-31] MEDS: CENTRAL LINE FLUSH 10 ML IV PUSH ×3 (05:49→20:17)
[2022-03-31 07:39] LABS: Glucose Point of Care 135 mg/dl (65-105)
--- NOTE | 2022-03-31 09:04 | WPDINTPN ---
Progress Note: A&P Assessment and Plan (1) Respiratory failure: Code(s): J96.90 - Respiratory failure, unspecified, unspecified whether with hypoxia or hypercapnia Status: Acute Assessment and Plan: Severe acute hypoxic respiratory failure secondary to pulmonary edema Patient was intubated 03/27 early in the morning and placed on mechanical ventilation He is currently on 12 of PEEP and 30 % FiO2. I will decrease PEEP to 10 ABG reviewed -continue rate of 28. Continue tidal volume of 450 Chest x-ray reviewed 03/29 Nimbex discontinue Will sedation. For sedation holiday (2) Shock: Code(s): R57.9 - Shock, unspecified Status: Acute Assessment and Plan: Continue vasopressin Levophed off stress dose steroids discontinue (3) Type 2 diabetes mellitus: Code(s): E11.9 - Type 2 diabetes mellitus without complications Status: Acute Assessment and Plan: Continue Sliding scale insulin and Lantus (4) Acute on chronic systolic CHF (congestive heart failure): Code(s): I50.23 - Acute on chronic systolic (congestive) heart failure Status: Acute Assessment and Plan: Baseline cardiac function but Echo done here at [place] on this as physician shows ? 1. Left ventricular systolic function is severely reduced, estimated at <15%. ? 2. Right ventricular systolic function is reduced. ? 3. Left atrial chamber dimension is severely enlarged. ? 4. There is severe mitral valve regurgitation Likely this has been worsened by his uncontrolled AFib with RVR Will repeat limited echo tomorrow (5) Cardiomyopathy: Code(s): I42.9 - Cardiomyopathy, unspecified Status: Acute Assessment and Plan: See above (6) JANIE (acute kidney injury): Code(s): N17.9 - Acute kidney failure, unspecified Status: Acute Assessment and Plan: I had multiple discussions with the family members regarding initiating hemodialysis but they could not make any decision. And yesterday afternoon they agreed to proceed with hemodialysis. Patient's INR was high putting him at risk of bleeding. Patient was given Kcentra to reverse coagulopathy. 03/30 temporary hemodialysis catheter placed in right IJ. patient received his 1st dialysis session Will discuss with Nephrology regarding repeating dialysis today Patient also has mild rhabdomyolysis. Electrolytes acceptable Monitor (7) Cardiac arrest: Code(s): I46.9 - Cardiac arrest, cause unspecified Status: Acute Assessment and Plan: Patient's cardiac arrest is likely combination of respiratory and cardiac issues. Patient had hypoxic respiratory failure from pulmonary edema and also was AFib with RVR and also has cardiomyopathy with EF less than 15% and severe MR. He was cardioverted 03/27 opening any continues to be in sinus rhythm Monitor and treat electrolytes. This does not appear to be ACS With prolonged down time patient may have anoxic injury although there is no way to assess at this time since patient is already sedated and chemically paralyzed. Patient also remained in and unstable rhythm with shock until this morning until he was cardioverted. Also had a PEA arrest which has not shown consistent benefit with TTM. Patient is also out of 6 hour time frame window of initiating TTM. Despite that I started patient on moderate TTM to try to keep his temperature less than 36 C for next 24 hours. He completed 24 hours of the TTM yesterday evening and now rewarming 03/[address] 1. Areas of prior infarction with subtle area of low attenuation in the medial aspect of the left parietal lobe which could reflect an early infarct. 2. Age related findings. Paralytic has been discontinued. I have not been able to perform a complete sedation holiday due to significant hypoxia and a synchrony with the ventilator. 03/31 -sedation discontinued for sedation holiday (8) Atrial fibrillation with RVR: Code(s): I4
[2022-03-31] MEDS: INSULIN GLARGINE (*BKC) 100 UNITS/ML 15 UNITS SUB-Q (09:05)
[2022-03-31] MEDS: levETIRAcetam 500MG/NACL 100ML 500 MG/100 ML BAG 400 MG IVPB ×2 (09:06→20:16)
[2022-03-31] MEDS: MINERAL OIL/WHITE PETROLATUM OINTMENT 1 APPLIC EACH EYE ×2 (09:07→20:16)
[2022-03-31] MEDS: PANTOPRAZOLE SODIUM IV 40 MG VIAL IV PUSH (09:07)
[2022-03-31] MEDS: CLOPIDOGREL BISULFATE 75 MG TABLET PO (09:07)
[2022-03-31] MEDS: VASOPRESSIN INJ 100 UNITS in DEXTROSE 5% 95 ML IV CONT (12:03)
[2022-03-31 12:06] LABS: Glucose Point of Care 167 mg/dl (65-105)
--- NOTE | 2022-03-31 12:41 | PM.PNNEP ---
Progress Note: A&P Assessment and Plan (1) JANIE (acute kidney injury): Code(s): N17.9 - Acute kidney failure, unspecified Status: Acute Assessment and Plan: the patient has a near normal baseline creatinine. he has acute kidney injury currently. Urine electrolytes pre renal. CPK is mildly high. Not high enough for damage to the kidneys but will repeat. Renal ultrasound is normal most likely this is ATN from his severe hypotension. Pre renal azotemia may be playing a role as well because of the very poor heart function. Patient oxygenation is a little better with an FiO2 of only 30%. He had dialysis yesterday. Systolic dipped into the 80s once but for the most part was 90 or higher. 2000cc was removed. Potassium is okay now. Patient oxygenation is a little better with an FiO2 of only 30%. Discussed with Dr Payne. Will do the patient again tomorrow morning early. (2) CHF (congestive heart failure): Code(s): I50.9 - Heart failure, unspecified Status: Acute Assessment and Plan: The patient has an ejection fraction of less than 15% and severe mitral valve regurgitation. (3) Sepsis: Code(s): A41.9 - Sepsis, unspecified organism Status: Acute Assessment and Plan: Blood cultures are drawn. These are negative so far. He is on empiric antibiotics: Vancomycin and cefepime. (4) Cardiac arrest: Code(s): I46.9 - Cardiac arrest, cause unspecified Status: Acute Assessment and Plan: Patient is getting supportive care. He finished the cooling period. (5) Type 2 diabetes mellitus: Code(s): E11.9 - Type 2 diabetes mellitus without complications Status: Acute Assessment and Plan: He was on Tradjenta on admission (6) Hyperlipidemia: Code(s): E78.5 - Hyperlipidemia, unspecified Status: Acute Assessment and Plan: he was on atorvastatin. Subjective Date/time seen: 03/31/22 11:00 Interval history: Patient is on the ventilator. he looks a little better overall. A little less swelling. FiO2 is down to 30%. He is off sedatives now for about 3 hours but has not wake and he yet. Exam Narrative: WDWN in NAD skin no rash Her subcu nodules head ncat lungs coarse bilaterally cor reg no rub or gallop abd BS+ nontender and soft ext 1-2+ edema. Objective Data Vital Signs Vital Signs: Vital Signs - 24 hr 03/30/22 13:45 03/30/22 14:34 03/30/22 12:45 Temperature 36.8 C Pulse Rate 55 L 61 54 L Respiratory Rate 20 Blood Pressure 113/81 98/74 L 130/91 H Pulse Oximetry 99 Oxygen Delivery Fraction of Inspired Oxygen 03/30/22 12:49 03/30/22 12:55 03/30/22 13:01 Temperature Pulse Rate 56 L 54 L 59 L Respiratory Rate Blood Pressure 130/91 H 141/92 H 152/92 H Pulse Oximetry Oxygen Delivery Fraction of Inspired Oxygen 03/30/22 13:06 03/30/22 13:11 03/30/22 13:15 Temperature Pulse Rate 55 L 62 59 L Respiratory Rate Blood Pressure 135/92 H 143/92 H 137/99 H Pulse Oximetry Oxygen Delivery Fraction of Inspired Oxygen 03/30/22 13:20 03/30/22 13:00 03/30/22 13:15 Temperature Pulse Rate 60 65 56 L Respiratory Rate Blood Pressure 137/91 H 152/92 H 137/99 H Pulse Oximetry Oxygen Delivery Fraction of Inspired Oxygen 03/30/22 13:30 03/30/22 13:30 03/30/22 13:41 Temperature Pulse Rate 57 L 59 L 52 L Respiratory Rate Blood Pressure 130/90 117/91 H 113/81 Pulse Oximetry Oxygen Delivery Fraction of Inspired Oxygen 03/30/22 13:53 03/30/22 13:53 03/30/22 13:59 Temperature Pulse Rate 54 L 48 L 48 L Respiratory Rate 16 Blood Pressure 112/78 112/78 Pulse Oximetry 99 99 Oxygen Delivery Mechanical Ventilation Fraction of Inspired Oxygen 100 03/30/22 14:03 03/30/22 14:10 03/30/22 14:07 Temperature Pulse Rate 60 58 L 54 L Respiratory Rate Bloo
--- NOTE | 2022-03-31 15:41 | P.PNCA_ITS ---
Progress Note: A&P Assessment and Plan (1) Cardiac arrest: Code(s): I46.9 - Cardiac arrest, cause unspecified Status: Acute Assessment and Plan: S/P PEA arrest 03/27/2022 * Remains intubated * Hemodialysis started 03/30/2022 * CT showed a possible acute CVA * Not waking up (2) Respiratory failure: Code(s): J96.90 - Respiratory failure, unspecified, unspecified whether with hypoxia or hypercapnia Status: Acute Assessment and Plan: Patient's condition declined, now in acute respiratory failure, likely due to CHF * Intubated * O2 requirements have improved (3) Shock: Code(s): R57.9 - Shock, unspecified Status: Acute Assessment and Plan: Patient went into shock, probably cardiogenic, and had a PEA arrest 03/26. * Off pressor support * Continue supportive care (4) Atrial flutter: Code(s): I48.92 - Unspecified atrial flutter Status: Acute Assessment and Plan: Atrial flutter RVR, heart rate in the 120s. * Has been chronically anticoagulated with warfarin * S/p cardioversion yesterday with zoroastrian of sinus rhythm. Had some PAF for the next day or so, but has been in NSR for the last 48 Hrs * Amiodarone discontinued due to mild bradycardia (5) Acute on chronic systolic CHF (congestive heart failure): Code(s): I50.23 - Acute on chronic systolic (congestive) heart failure Status: Acute Assessment and Plan: Patient is developed acute systolic CHF, probably acute on chronic, aggravated by a flutter RVR. * CXR and O2 requirements better since dialysis started. (6) Cardiomyopathy: Code(s): I42.9 - Cardiomyopathy, unspecified Status: Acute Assessment and Plan: Echo shows severe cardiomyopathy, EF <15%, severe MR * Not sure if this is chronic or acute due to the extremely rapid heart rate the patient experienced yesterday and left ventricular stunning. * No old records in [facility] EMR. * If pt recovers, can consider transfer to [facility] for consideration for advanced therapies. Seems unlikely at this point. (7) Tachycardia: Code(s): R00.0 - Tachycardia, unspecified Status: Acute Assessment and Plan: Patient found to have a somewhat wide complex tachycardia in the field, rate 248 beats per minute. * Likely was a ventricular tachycardia, a flutter w/ 1:1 conduction cannot be excluded. * He was remarkably stable with this rhythm although hypotensive. * No recurrence (8) Mitral regurgitation: Code(s): I34.0 - Nonrheumatic mitral (valve) insufficiency Status: Acute Assessment and Plan: Severe mitral regurgitation, unclear if acute chronic or a combination (9) CAD (coronary artery disease): Code(s): I25.10 - Atherosclerotic heart disease of [place] coronary artery without angina pectoris Status: Acute Assessment and Plan: History of CAD and stent in 2019, stable with no angina, even with a heart rate near 250 beats per minute. * Minimal troponin spill with this episode, ACS unlikely. Subjective Date/time seen: 03/31/22 15:41 Interval history: Patient admitted with a tachyarrhythmia, probably ventricular tachycardia, had atrial flutter, CHF. Severe cardiomyopathy, EF 10-15%. PEA arrest 03/27/2022. Cardioverted for atrial flutter RVR 03/27/2022. Intubated, started on hemodialysis 03/30/2022. Date of service 03/31/2022:
--- NOTE | 2022-03-31 15:41 | PM.PNCARD ---
Progress Note: A&P Assessment and Plan (1) Cardiac arrest: Code(s): I46.9 - Cardiac arrest, cause unspecified Status: Acute Assessment and Plan: S/P PEA arrest 03/27/2022 Remains intubated Hemodialysis started 03/30/2022 CT showed a possible acute CVA Not waking up (2) Respiratory failure: Code(s): J96.90 - Respiratory failure, unspecified, unspecified whether with hypoxia or hypercapnia Status: Acute Assessment and Plan: Patient's condition declined, now in acute respiratory failure, likely due to CHF Intubated O2 requirements have improved (3) Shock: Code(s): R57.9 - Shock, unspecified Status: Acute Assessment and Plan: Patient went into shock, probably cardiogenic, and had a PEA arrest 03/26. Off pressor support Continue supportive care (4) Atrial flutter: Code(s): I48.92 - Unspecified atrial flutter Status: Acute Assessment and Plan: Atrial flutter RVR, heart rate in the 120s. Has been chronically anticoagulated with warfarin S/p cardioversion yesterday with rastafari of sinus rhythm. Had some PAF for the next day or so, but has been in NSR for the last 48 Hrs Amiodarone discontinued due to mild bradycardia (5) Acute on chronic systolic CHF (congestive heart failure): Code(s): I50.23 - Acute on chronic systolic (congestive) heart failure Status: Acute Assessment and Plan: Patient is developed acute systolic CHF, probably acute on chronic, aggravated by a flutter RVR. CXR and O2 requirements better since dialysis started. (6) Cardiomyopathy: Code(s): I42.9 - Cardiomyopathy, unspecified Status: Acute Assessment and Plan: Echo shows severe cardiomyopathy, EF <15%, severe MR Not sure if this is chronic or acute due to the extremely rapid heart rate the patient experienced yesterday and left ventricular stunning. No old records in [facility] EMR. If pt recovers, can consider transfer to [facility] for consideration for advanced therapies. Seems unlikely at this point. (7) Tachycardia: Code(s): R00.0 - Tachycardia, unspecified Status: Acute Assessment and Plan: Patient found to have a somewhat wide complex tachycardia in the field, rate 248 beats per minute. Likely was a ventricular tachycardia, a flutter w/ 1:1 conduction cannot be excluded. He was remarkably stable with this rhythm although hypotensive. No recurrence (8) Mitral regurgitation: Code(s): I34.0 - Nonrheumatic mitral (valve) insufficiency Status: Acute Assessment and Plan: Severe mitral regurgitation, unclear if acute chronic or a combination (9) CAD (coronary artery disease): Code(s): I25.10 - Atherosclerotic heart disease of [place] coronary artery without angina pectoris Status: Acute Assessment and Plan: History of CAD and stent in 2019, stable with no angina, even with a heart rate near 250 beats per minute. Minimal troponin spill with this episode, ACS unlikely. Subjective Date/time seen: 03/31/22 15:41 Interval history: Patient admitted with a tachyarrhythmia, probably ventricular tachycardia, had atrial flutter, CHF. Severe cardiomyopathy, EF 10-15%. PEA arrest 03/27/2022. Cardioverted for atrial flutter RVR 03/27/2022. Intubated, started on hemodialysis 03/30/2022. Date of service 03/31/2022: Tolerated dialysis reasonably well. Minimal urine output. Now on a sedation vacation, but no purposeful movement and prob sz activity, being started on proprafol. FiO2 down to 30%. Systolic blood pressure hovering around 100, off Levo and vasopressin. Chest x-ray personally reviewed, improving CHF, in my opinion. Daughter at bedside. Tele: Normal sinus rhythm. Review of Systems Review of Systems: ROS obtained fr EMR and RN ROS unobtainable: Yes unobtainable due to endotracheal tube and unobtainable due to mental
[2022-03-31] MEDS: PROPOFOL IV EMULSION 100 ML 13.19 MG IV CONT (15:57)
[2022-03-31 16:11] LABS: Glucose Point of Care 127 mg/dl (65-105)
--- NOTE | 2022-03-31 16:52 | PM.IMPN ---
Progress Note: A&P Assessment and Plan (1) Respiratory failure: Code(s): J96.90 - Respiratory failure, unspecified, unspecified whether with hypoxia or hypercapnia Status: Acute Assessment and Plan: Severe acute hypoxic respiratory failure secondary to pulmonary edema Patient was intubated 03/27 early in the morning and placed on mechanical ventilation vent management per tile inspector (2) Shock: Code(s): R57.9 - Shock, unspecified Status: Acute Assessment and Plan: Continue vasopressin Levophed off received stress dose steroids Suspected sepsis as well and on broad-spectrum antibiotics (3) Type 2 diabetes mellitus: Code(s): E11.9 - Type 2 diabetes mellitus without complications Status: Acute Assessment and Plan: Continue Sliding scale insulin and Lantus (4) Acute on chronic systolic CHF (congestive heart failure): Code(s): I50.23 - Acute on chronic systolic (congestive) heart failure Status: Acute Assessment and Plan: Baseline cardiac function but Echo done here at [place] on this as physician shows ? 1. Left ventricular systolic function is severely reduced, estimated at <15%. ? 2. Right ventricular systolic function is reduced. ? 3. Left atrial chamber dimension is severely enlarged. ? 4. There is severe mitral valve regurgitation Likely this has been worsened by his uncontrolled AFib with RVR severe MR and reduce systolic function less than 15% Cardiology following (5) Cardiomyopathy: Code(s): I42.9 - Cardiomyopathy, unspecified Status: Acute Assessment and Plan: See above (6) JANIE (acute kidney injury): Code(s): N17.9 - Acute kidney failure, unspecified Status: Acute Assessment and Plan: continue to worsen needing hemodialysis. Nine hundred twenty-four temporary hemodialysis catheter placed in right IJ. Hemodialysis 03/30 tolerated well Nephrology following. (7) Cardiac arrest: Code(s): I46.9 - Cardiac arrest, cause unspecified Status: Acute Assessment and Plan: Patient coded 03/27: Patient's cardiac arrest is likely combination of respiratory and cardiac issues. Patient had hypoxic respiratory failure from pulmonary edema and also was AFib with RVR and also has cardiomyopathy with EF less than 15% and severe MR. He was cardioverted 03/27 opening any continues to be in sinus rhythm Monitor and treat electrolytes. This does not appear to be ACS With prolonged down time patient may have anoxic injury although there is no way to assess at this time since patient is already sedated and chemically paralyzed. Patient also remained in and unstable rhythm with shock until this morning until he was cardioverted. Also had a PEA arrest which has not shown consistent benefit with TTM. Patient is also out of 6 hour time frame window of initiating TTM. Despite that I started patient on moderate TTM to try to keep his temperature less than 36 C for next 24 hours. He completed 24 hours of the TTM yesterday evening and now rewarming 03/[address] 1. Areas of prior infarction with subtle area of low attenuation in the medial aspect of the left parietal lobe which could reflect an early infarct. 2. Age related findings. (8) Atrial fibrillation with RVR: Code(s): I48.91 - Unspecified atrial fibrillation Status: Acute Assessment and Plan: Patient with uncontrolled AFib with RVR complicated by shock He had received several boluses of amiodarone and was on amiodarone infusion Patient is already anticoagulated at baseline 03/27 Status post DC cardioversion by Cardiology 03/28 amiodarone infusion was discontinued patient went back into tachycardia and was restarted. 03/31 patient bradycardic overnight and amiodarone was discontinued again. Continue to monitor Currently in sinus Curly in high 50s Monitor rhythm closely (9) Severe mitral regurgitation: Code(s): I34.0 - Nonrheumatic m
[2022-03-31] MEDS: ATORVASTATIN 40 MG TABLET 80 MG PO (20:16)
[2022-03-31 20:33] LABS: Glucose Point of Care 111 mg/dl (65-105)
[2022-04-01] VITALS (57 sets, daily range): BP systolic 91–138; BP diastolic 58–90; PULSE 36–94; RESP 16–59; TEMP 36.9–38.2; O2SAT 91–100
[2022-04-01] MEDS: METOCLOPRAMIDE HCL 10 MG/10 ML SOLN UDC PO ×4 (00:07→18:17)
[2022-04-01] MEDS: PROPOFOL IV EMULSION 100 ML 9.89 MG IV CONT (00:09)
[2022-04-01 00:39] LABS: Glucose Point of Care 109 mg/dl (65-105)
[2022-04-01 02:06] LABS: Hemoglobin 9.6 g/dL (14.0-18.0); Immature Platelet Fraction Pct 8.3 % (0.9-11.2); Mean Corpuscular HGB Conc 34.3 g/dl (32-36); Mean Corpuscular Hemoglobin 25.4 pg (26-34); Mean Corpuscular Volume 74.1 fl (80-100); Mean Platelet Volume 11.3 fl (7.4-10.4); Platelet Count Result 79 k/mm3 (150-375); Red Blood Count 3.78 M/mm3 (4.6-6.20); Red Cell Distribution Width 15.4 % (11.5-14.5); White Blood Count 10.7 K/mm3 (4.5-10.0)
[2022-04-01 02:16] LABS: Alanine Aminotransferase 86 U/L (6-50); Albumin Level 3.5 g/dL (3.5-5.1); Alkaline Phosphatase 55 U/L (38-126); Anion Gap 11 mmol/L (8-16); Aspartate Amino Transferase 76 U/L (17-59); Bilirubin,Total 1.7 mg/dL (0.2-1.3); Blood Urea Nitrogen 110 mg/dL (9-20); Calcium 7.6 mg/dL (8.4-10.2); Carbon Dioxide 26 mmol/L (22-30); Chloride 98 mmol/L (98-107); Estimated CRCL calculation 10 ml/min; Estimated Glomerular Filt Rate 8; Glucose 109 mg/dL (65-110); Magnesium 2.4 mg/dL (1.6-2.3); Phosphorus 5.5 mg/dL (2.5-4.5); Potassium 3.3 mmol/L (3.4-5.0); Sodium 135 mmol/L (137-145)
[2022-04-01 02:20] LABS: INR 1.8; Prothrombin Time 20.3 Seconds (11.1-14.7)
[2022-04-01] MEDS: POTASSIUM CHLORIDE 20 MEQ PACKET (FOR LIQUID) 40 MEQ FEED TUBE (02:24)
[2022-04-01 04:26] LABS: Glucose Point of Care 124 mg/dl (65-105)
[2022-04-01 05:17] LABS: Alveolar/Arterial O2 Gradient 135.6 mmHg; Base Excess ABG 0.3 mEq/l (+/-2.0); Carboxyhemoglobin 0.3 % THb (0-2.0); Fractional Inspired Oxygen 35 %; HCO3 ABG 24.3 mEq/l (22.0-26.0); Methemoglobin ABG 0.5 %THb (0-1.5); Oxygen Content ABG 14.2 %vol (16.0-22.0); Oxygen Saturation ABG 94.9 % (95.0-100.0); Oxyhemoglobin 91.3 % THb (90.0-100.0); PCO2 ABG 36.8 mmHg (35.0-45.0); PO2 ABG 71.2 mmHg (80.0-100.0); PO2 FiO2 Ratio Arterial Blood 2.03 %; Reduced Hemoglobin 7.9 %THb (0-5.0); pH ABG 7.437 (7.350-7.450)
[2022-04-01 05:18] LABS: Arterial Blood Gas Ventilator rate 28 /MIN; Device VENTILATOR; Modified Allen's Test Pass; Site Drawn RIGHT RADIAL
[2022-04-01 05:19] LABS: Arterial Blood Gas PEEP 10 cmH2O; Arterial Blood Gas Tidal Volume 450 ml; Arterial Blood Gas Vent Mode CMV
[2022-04-01] MEDS: CENTRAL LINE FLUSH 10 ML IV PUSH ×3 (05:29→20:06)
[2022-04-01 07:22] LABS: Glucose Point of Care 96 mg/dl (65-105)
--- NOTE | 2022-04-01 08:00 | ECHO_ITS ---
Patient Info Name: Rod Joyce Age: 66 years : 1955 Gender: Male Ht: 69 in Wt: 248 lbs BSA: 2.38 m2 HR: 57 bpm BP: 91 / 58 mmHg Heart Rhythm: Sinus Rhythm Technical Quality: Fair Exam Date: 04/01/2022 7:49 AM Exam Location: [facility] Patient Status: Inpatient Admit Date: 03/27/2022 Staff Ordering Physician: Rosendo Ortega MD Director Life Sciences: Sodnra Floyd RDCS Attending Provider: Sukhi Snow MD Exam Type: CA echo limited w contrast Study Info Indications - mitral valve regurg and cardiomyopathy Limited two-dimensional transthoracic echocardiogram is performed with contrast. Contrast/Agitated Saline Contrast/Ag. Saline: Definity Amount: 3.00 ml Administered By: Sondra Floyd RDCS Existing IV Access: Yes IV Access Condition: patent with no signs of infiltration Summary 1. Definity contrast used to improve visualization. 2. Left ventricular systolic function is mildly reduced, estimated at 40-45%. 3. Left ventricular chamber dimension is moderately enlarged. 4. The inferior segment is akinetic. 5. Biatrial dilation. 6. Small amount of mitral and aortic regurgitation. Left Ventricle Left ventricular chamber dimension is moderately enlarged. Left ventricular systolic function is mildly reduced, estimated at 40-45%. Definity contrast used to improve visualization. The inferior segment is akinetic. Right Ventricle Right ventricular chamber dimension is normal. Left Atria Left atrial chamber dimension is moderately enlarged. Right Atria Right atrial chamber dimension is mildly enlarged. Aortic Valve The aortic valve is normal. There is mild aortic valve regurgitation. Pulmonic Valve The pulmonic valve is not well visualized. Mitral Valve The mitral valve has normal leaflets. There is trace mitral valve regurgitation. Tricuspid Valve The tricuspid valve leaflets are normal. Pericardium/Pleural The pericardium appears normal. Aorta The aortic root size at the sinus of Valsalva is normal. Mitral Valve Name Value Normal MV Regurgitation Doppler MR Peak Gradient 70 mmHg Tricuspid Valve Name Value Normal TV Regurgitation Doppler TR Peak Velocity 268 cm/s TR Peak Gradient 29 mmHg Estimated PAP/RSVP RA Pressure 10 mmHg <=5 PA Systolic Pressure 39 mmHg <36 RV Systolic Pressure 39 mmHg <36 Ventricles Name Value Normal LV Dimensions 2D/MM IVS Diastolic Thickness (2D) 1.0
[2022-04-01] MEDS: PERFLUTREN LIPID MICROSPHERES 1.5 ML VIAL DILUTED TO 10 ML TOTAL VOLUME IV PUSH (08:03)
--- NOTE | 2022-04-01 08:27 | WPDINTPN ---
Progress Note: A&P Assessment and Plan (1) Respiratory failure: Code(s): J96.90 - Respiratory failure, unspecified, unspecified whether with hypoxia or hypercapnia Status: Acute Assessment and Plan: Severe acute hypoxic respiratory failure secondary to pulmonary edema Patient was intubated 03/27 early in the morning and placed on mechanical ventilation He is currently on 10 of PEEP and 35 % FiO2. ABG reviewed -continue rate of 28. Continue tidal volume of 450 Chest x-ray reviewed withdraw ET tube by 2 cm 03/29 Nimbex discontinue On propofol at this time for ventilator synchrony. Will hold for EEG testing Anticipate another session of dialysis to remove additional fluid (2) Shock: Code(s): R57.9 - Shock, unspecified Status: Acute Assessment and Plan: Off vasopressors at this time stress dose steroids discontinue (3) Type 2 diabetes mellitus: Code(s): E11.9 - Type 2 diabetes mellitus without complications Status: Acute Assessment and Plan: Continue Sliding scale insulin and Lantus (4) Acute on chronic systolic CHF (congestive heart failure): Code(s): I50.23 - Acute on chronic systolic (congestive) heart failure Status: Acute Assessment and Plan: Baseline cardiac function but Echo done here at [place] on this as physician shows ? 1. Left ventricular systolic function is severely reduced, estimated at <15%. ? 2. Right ventricular systolic function is reduced. ? 3. Left atrial chamber dimension is severely enlarged. ? 4. There is severe mitral valve regurgitation Likely this has been worsened by his uncontrolled AFib with RVR Limited echo will be repeated today (5) Cardiomyopathy: Code(s): I42.9 - Cardiomyopathy, unspecified Status: Acute Assessment and Plan: See above (6) JANIE (acute kidney injury): Code(s): N17.9 - Acute kidney failure, unspecified Status: Acute Assessment and Plan: I had multiple discussions with the family members regarding initiating hemodialysis but they could not make any decision. And yesterday afternoon they agreed to proceed with hemodialysis. Patient's INR was high putting him at risk of bleeding. Patient was given Kcentra to reverse coagulopathy. 03/30 temporary hemodialysis catheter placed in right IJ. patient received his 1st dialysis session 04/01 patient is scheduled for another session of dialysis today Patient also has mild rhabdomyolysis. Electrolytes acceptable Monitor (7) Cardiac arrest: Code(s): I46.9 - Cardiac arrest, cause unspecified Status: Acute Assessment and Plan: Patient's cardiac arrest is likely combination of respiratory and cardiac issues. Patient had hypoxic respiratory failure from pulmonary edema and also was AFib with RVR and also has cardiomyopathy with EF less than 15% and severe MR. He was cardioverted 03/27 opening any continues to be in sinus rhythm Monitor and treat electrolytes. This does not appear to be ACS With prolonged down time patient may have anoxic injury although there is no way to assess at this time since patient is already sedated and chemically paralyzed. Patient also remained in and unstable rhythm with shock until this morning until he was cardioverted. Also had a PEA arrest which has not shown consistent benefit with TTM. Patient is also out of 6 hour time frame window of initiating TTM. Despite that I started patient on moderate TTM to try to keep his temperature less than 36 C for next 24 hours. He completed 24 hours of the TTM yesterday evening and now rewarming 03/[address] 1. Areas of prior infarction with subtle area of low attenuation in the medial aspect of the left parietal lobe which could reflect an early infarct. 2. Age related findings. Paralytic has been discontinued. I have not been able to perform a complete sedation holiday due to significant hypoxia and a synchrony with the ventilator. 9
[2022-04-01] MEDS: levETIRAcetam 500MG/NACL 100ML 500 MG/100 ML BAG 400 MG IVPB ×2 (09:50→20:06)
[2022-04-01] MEDS: CLOPIDOGREL BISULFATE 75 MG TABLET PO (09:50)
[2022-04-01] MEDS: PANTOPRAZOLE SODIUM IV 40 MG VIAL IV PUSH (09:51)
[2022-04-01] MEDS: MINERAL OIL/WHITE PETROLATUM OINTMENT 1 APPLIC EACH EYE ×2 (09:51→20:06)
[2022-04-01] MEDS: PROPOFOL IV EMULSION 100 ML 13.5 MG IV CONT ×2 (09:52→14:01)
[2022-04-01] MEDS: AMIODARONE 150 MG/D5W 100 ML 150 MG/100 ML BAG 600 MG IV CONT (10:31)
--- NOTE | 2022-04-01 10:58 | PM.PNCARD ---
Progress Note: A&P Assessment and Plan (1) Seizures: Code(s): R56.9 - Unspecified convulsions Status: Acute (2) Thrombocytopenia: Code(s): D69.6 - Thrombocytopenia, unspecified Status: Acute (3) Rhabdomyolysis: Code(s): M62.82 - Rhabdomyolysis Status: Acute (4) Acidosis: Code(s): E87.2 - Acidosis Status: Acute (5) Coagulopathy: Code(s): D68.9 - Coagulation defect, unspecified Status: Acute (6) Hyperlipidemia: Code(s): E78.5 - Hyperlipidemia, unspecified Status: Acute (7) Sepsis: Code(s): A41.9 - Sepsis, unspecified organism Status: Acute (8) Extravasation of other vesicant agent: Code(s): T80.818A - Extravasation of other vesicant agent, initial encounter Status: Acute (9) Severe mitral regurgitation: Code(s): I34.0 - Nonrheumatic mitral (valve) insufficiency Status: Acute (10) Atrial fibrillation with RVR: Code(s): I48.91 - Unspecified atrial fibrillation Status: Acute (11) Cardiac arrest: Code(s): I46.9 - Cardiac arrest, cause unspecified Status: Acute (12) Shock: Code(s): R57.9 - Shock, unspecified Status: Acute (13) Respiratory failure: Code(s): J96.90 - Respiratory failure, unspecified, unspecified whether with hypoxia or hypercapnia Status: Acute (14) Type 2 diabetes mellitus: Code(s): E11.9 - Type 2 diabetes mellitus without complications Status: Acute (15) Cardiomyopathy: Code(s): I42.9 - Cardiomyopathy, unspecified Status: Acute (16) History of stroke: Code(s): Z86.73 - Personal history of transient ischemic attack (TIA), and cerebral infarction without residual deficits Status: Acute Plan Remains critically ill with poor prognosis. Echo done today, will follow up on results Continue with supportive care Subjective Date/time seen: 04/01/22 10:58 Interval history: Patient remains critically ill, on mechanical ventilation. Review of Systems Review of Systems: ROS unobtainable: Yes unobtainable due to endotracheal tube Exam Const: Other: Sedated, intubated on mechanical ventilation Resp: Other: On mechanical ventilation Cardio: Rate: regular rate Rhythm: regular rhythm Other: 3/6 systolic murmur consistent with MR Neuro: Other: Sedated Objective Data Vital Signs Vital Signs: Vital Signs - 24 hr 03/31/22 11:56 03/31/22 12:03 03/31/22 11:00 Temperature 37.0 C Pulse Rate 56 L 59 L 59 L Respiratory Rate 28 H Blood Pressure 102/76 Pulse Oximetry 97 91 Oxygen Delivery Mechanical Ventilation Fraction of Inspired Oxygen 03/31/22 11:01 03/31/22 11:15 03/31/22 11:16 Temperature 37.0 C 37.1 C 37.1 C Pulse Rate 57 L 59 L 60 Respiratory Rate 28 H 22 H 27 H Blood Pressure 97/73 L 99/77 L Pulse Oximetry 91 92 92 Oxygen Delivery Fraction of Inspired Oxygen 03/31/22 11:30 03/31/22 11:31 03/31/22 11:45 Temperature 37.1 C 37.1 C 37.1 C Pulse Rate 61 60 54 L Respiratory Rate 26 H 26 H 25 H Blood Pressure 101/76 Pulse Oximetry 93 93 88 L Oxygen Delivery Fraction of Inspired Oxygen 03/31/22 11:46 03/31/22 12:00 03/31/22 12:01 Temperature 37.1 C 37.2 C 37.2 C Pulse Rate 63 59 L 59 L Respiratory Rate 26 H 30 H 28 H Blood Pressure 93/76 L 102/76 Pulse Oximetry 93 93 92 Oxygen Delivery Fraction of Inspired Oxygen 03/31/22 12:16 03/31/22 12:18 03/31/22 12:00 Temperature Pulse Rate 62 55 L 59 L Respiratory Rate 28 H 28 H Blood Pressure Pulse Oximetry Oxygen Delivery Fraction of Inspired Oxygen 03/31/22 13:30 03/31/22 12:00 03/31/22 12:00 Temperature Pulse Rate 57 L Respiratory Rate Blood Pressure 100/74 Pulse Oximetry Oxygen Delivery Mechanical Ventilation Fraction of Inspired Oxygen 03/31/22 12:02 03/31/22 12:15 03/31/22 12:16 Temperature 37.2 C 37.2 C 37.2
--- NOTE | 2022-04-01 11:05 | PCFNICU ---
ICU Rounding Note: Pt current nutrition is Nepro running 30 ml/h. Goal rate is 50 ml/h. Nutrition recommendation: Keep rate at 30 ml/h because of abdominal distension. Prokinetic agent reglan ordered, hopefully will improve tolerance. Last recorded weight is 112.8 kg. Bowel Motility: Last BM 03/26/22. Labs Reviewed: Na 135, K+ 3.3, BUN 110, creat 8.2, Mag 2.4, PO4 5.5 Meds Noted: Fentanyl, Propofol, versed. Pantoprazole, reglan q 6 hours. Skin: RN notes wound on arm Additional Notes: Do not recommend advancing TF rate any further at this time because of intolerance. May want to consider conservative bowel regimen. Following daily in ICU rounds. Will monitor in ICU rounds and reassessing every Friday and Friday..
[2022-04-01 11:43] LABS: Glucose Point of Care 94 mg/dl (65-105)
--- NOTE | 2022-04-01 12:12 | P.PNNP_ITS ---
Progress Note: A&P Assessment and Plan (1) JANIE (acute kidney injury): Code(s): N17.9 - Acute kidney failure, unspecified Status: Acute Assessment and Plan: * due to ATN from hemodynamic instability, cardiac arrest, and likely pre-renal azotemia from poor heart function * evaluation to date: * urine electrolytes pre renal. * CPK is mildly high/elevated * renal ultrasound is normal * HD today with fluid removal as tolerated by hemodynamics * follow repeat labs for the potential of renal recovery * follow elecrolytes, volume status, and clearance (2) Respiratory failure: Code(s): J96.90 - Respiratory failure, unspecified, unspecified whether with hypoxia or hypercapnia Status: Acute Assessment and Plan: * felt to be seconary to pulmonary edema and cardiac arrest * fluid removal with dialysis as tolerated * ventilator weaning as tolerated (3) CHF (congestive heart failure): Code(s): I50.9 - Heart failure, unspecified Status: Acute Assessment and Plan: * EF less then 15% by last echo * also has severe MR as well * continue fluid removal with dialysis as tolerated (4) Sepsis: Code(s): A41.9 - Sepsis, unspecified organism Status: Acute Assessment and Plan: * blood cultures negative to date * off vasopressor therapy at this time * empiric antibiotics (5) Cardiac arrest: Code(s): I46.9 - Cardiac arrest, cause unspecified Status: Acute Assessment and Plan: * continue supportive therapy * concern with regard to possible anoxic brain injury (6) Type 2 diabetes mellitus: Code(s): E11.9 - Type 2 diabetes mellitus without complications Status: Acute Assessment and Plan: * follow accuchecks * glycemic control Will continue to follow Subjective Date/time seen: 04/01/22 12:12 Chart reviewed - assuming care from Dr. Espinoza; tolerated hemodialysis treatment at the time of my visit (seen on HD at 12:00PM); remains intubated and on mechanical ventilation; relatively stable hemodynamics of vasopressor therapy; minimal urine output noted. Exam Narrative: General:elderly AA male in NAD; intubated and on mechanical ventilation Heart: normal S1 and S2; no rub Lungs: coarse breath sounds Abdomen: soft, nontender, nondistended, positive bowel sounds Extremities: no cyanosis or clubbing; 1 - 2+ edema Skin: warm and dry Objective Data Vital Signs Vital Signs: Vital Signs Temp Pulse Resp BP Pulse Ox O2 Del Method FiO2 04/01/22 12:00 35 04/01/22 12:00 63 28 H 94 Mechanical Ventilation 35 04/01/22 11:52 37.6 C 64 28 H 111/78 95 04/01/22 12:00 61 113/78 04/01/22 11:45 64 111/78 04/01/22 11:30 68 124/73 04/01/22 11:16 70 114/73 04/01/22 11:00 64 108/72 04/01/22 11:02 66 94 Mechanical Ventilation 35 04/01/22 08:00 66 04/01/22 08:00 35 04/01/22 10:00 37.6 C H 70 23 H 123/87 93 04/01/22 10:45 70 109/75 04/01/22 10:30 60 109/73 04/01/22 10:18 65 121/90 04/01/22 10:02 65 123/87 04/01/22 09:45 70 114/68 04/01/22 09:30 68 107/70 04/01/22 08:18 64 91 Mechanical Ventilation 35 04/01/22 09:19 65
--- NOTE | 2022-04-01 12:12 | PM.PNNEP ---
Progress Note: A&P Assessment and Plan (1) JANIE (acute kidney injury): Code(s): N17.9 - Acute kidney failure, unspecified Status: Acute Assessment and Plan: due to ATN from hemodynamic instability, cardiac arrest, and likely pre-renal azotemia from poor heart function evaluation to date: urine electrolytes pre renal. CPK is mildly high/elevated renal ultrasound is normal HD today with fluid removal as tolerated by hemodynamics follow repeat labs for the potential of renal recovery follow elecrolytes, volume status, and clearance (2) Respiratory failure: Code(s): J96.90 - Respiratory failure, unspecified, unspecified whether with hypoxia or hypercapnia Status: Acute Assessment and Plan: felt to be seconary to pulmonary edema and cardiac arrest fluid removal with dialysis as tolerated ventilator weaning as tolerated (3) CHF (congestive heart failure): Code(s): I50.9 - Heart failure, unspecified Status: Acute Assessment and Plan: EF less then 15% by last echo also has severe MR as well continue fluid removal with dialysis as tolerated (4) Sepsis: Code(s): A41.9 - Sepsis, unspecified organism Status: Acute Assessment and Plan: blood cultures negative to date off vasopressor therapy at this time empiric antibiotics (5) Cardiac arrest: Code(s): I46.9 - Cardiac arrest, cause unspecified Status: Acute Assessment and Plan: continue supportive therapy concern with regard to possible anoxic brain injury (6) Type 2 diabetes mellitus: Code(s): E11.9 - Type 2 diabetes mellitus without complications Status: Acute Assessment and Plan: follow accuchecks glycemic control Will continue to follow Subjective Date/time seen: 04/01/22 12:12 Chart reviewed - assuming care from Dr. Espinoza; tolerated hemodialysis treatment at the time of my visit (seen on HD at 12:00PM); remains intubated and on mechanical ventilation; relatively stable hemodynamics of vasopressor therapy; minimal urine output noted. Exam Narrative: General:elderly AA male in NAD; intubated and on mechanical ventilation Heart: normal S1 and S2; no rub Lungs: coarse breath sounds Abdomen: soft, nontender, nondistended, positive bowel sounds Extremities: no cyanosis or clubbing; 1 - 2+ edema Skin: warm and dry Objective Data Vital Signs Vital Signs: Vital Signs Temp Pulse Resp BP Pulse Ox O2 Del Method FiO2 04/01/22 12:00 35 09/26/22 12:00 63 28 H 94 Mechanical Ventilation 35 04/01/22 11:52 37.6 C 64 28 H 111/78 95 04/01/22 12:00 61 113/78 04/01/22 11:45 64 111/78 04/01/22 11:30 68 124/73 04/01/22 11:16 70 114/73 04/01/22 11:00 64 108/72 04/01/22 11:02 66 94 Mechanical Ventilation 35 04/01/22 08:00 66 04/01/22 08:00 35 04/01/22 10:00 37.6 C H 70 23 H 123/87 93 04/01/22 10:45 70 109/75 04/01/22 10:30 60 109/73 04/01/22 10:18 65 121/90 04/01/22 10:02 65 123/87 04/01/22 09:45 70 114/68 04/01/22 09:30 68 107/70 04/01/22 08:18 64 91 Mechanical Ventilation 35 04/01/22 09:19 65 115/79 04/01/22 09:03 70 109/76 04/01/22 08:51 69 111/78 04/01/22 08:35 35 04/01/22 08:27 36.9 C 64 28 H 111/72 91 04/01/22 07:39 68 91 Mechanical Ventilation 35 04/01/22 06:00 62 04/01/22 07:24 37.2 C 65 26 H 110/76 93 04/01/22 05:21 57 L 93 Mechanical Ventilation 35 04/01/22 04:00 35 04/01/22 04:00 Mechanical Ventilation 35 04/01/22 04:00 59 L 04/01/22 04:01 36.9 C 57 L 28 H 91/58 L 93 04/01/22 02:01 36.9 C 57 L 28 H 96/68 L 93 04/01/22 02:00 59 L 04/01/22 02:12 60 94 Mechanical Ventilation 30 04/01/22 02:11 94 59 H 04/01/22 00:00 57 L 03/08
[2022-04-01] MEDS: DEXTROSE 50% 25 GM/50 ML SYRINGE IV PUSH (15:51)
[2022-04-01 15:59] LABS: Glucose Point of Care 61 mg/dl (65-105)
[2022-04-01] MEDS: ACETAMINOPHEN ELIXIR 325 MG/10.15 ML UDC 650 MG PO (16:00)
--- NOTE | 2022-04-01 18:03 | PM.IMPN ---
Progress Note: A&P Assessment and Plan (1) Respiratory failure: Code(s): J96.90 - Respiratory failure, unspecified, unspecified whether with hypoxia or hypercapnia Status: Acute Assessment and Plan: Severe acute hypoxic respiratory failure secondary to pulmonary edema Patient was intubated 03/27 early in the morning and placed on mechanical ventilation vent management per special effects technician (2) Shock: Code(s): R57.9 - Shock, unspecified Status: Acute Assessment and Plan: Continue vasopressin Levophed off received stress dose steroids Suspected sepsis as well and on broad-spectrum antibiotics (3) Type 2 diabetes mellitus: Code(s): E11.9 - Type 2 diabetes mellitus without complications Status: Acute Assessment and Plan: Continue Sliding scale insulin and Lantus (4) Acute on chronic systolic CHF (congestive heart failure): Code(s): I50.23 - Acute on chronic systolic (congestive) heart failure Status: Acute Assessment and Plan: Baseline cardiac function but Echo done here at [place] on this as physician shows ? 1. Left ventricular systolic function is severely reduced, estimated at <15%. ? 2. Right ventricular systolic function is reduced. ? 3. Left atrial chamber dimension is severely enlarged. ? 4. There is severe mitral valve regurgitation Likely this has been worsened by his uncontrolled AFib with RVR severe MR and reduce systolic function less than 15% Cardiology following Repeat EF 40-45% on echo 04/01 (5) Cardiomyopathy: Code(s): I42.9 - Cardiomyopathy, unspecified Status: Acute Assessment and Plan: See above (6) JANIE (acute kidney injury): Code(s): N17.9 - Acute kidney failure, unspecified Status: Acute Assessment and Plan: continue to worsen needing hemodialysis. Nine hundred twenty-four temporary hemodialysis catheter placed in right IJ. Hemodialysis 03/30 tolerated well Nephrology following. (7) Cardiac arrest: Code(s): I46.9 - Cardiac arrest, cause unspecified Status: Acute Assessment and Plan: Patient coded 03/27: Patient's cardiac arrest is likely combination of respiratory and cardiac issues. Patient had hypoxic respiratory failure from pulmonary edema and also was AFib with RVR and also has cardiomyopathy with EF less than 15% and severe MR. He was cardioverted 03/27 opening any continues to be in sinus rhythm Monitor and treat electrolytes. This does not appear to be ACS With prolonged down time patient may have anoxic injury although there is no way to assess at this time since patient is already sedated and chemically paralyzed. Patient also remained in and unstable rhythm with shock until this morning until he was cardioverted. Also had a PEA arrest which has not shown consistent benefit with TTM. Patient is also out of 6 hour time frame window of initiating TTM. Despite that I started patient on moderate TTM to try to keep his temperature less than 36 C for next 24 hours. He completed 24 hours of the TTM yesterday evening and now rewarming 03/[address] 1. Areas of prior infarction with subtle area of low attenuation in the medial aspect of the left parietal lobe which could reflect an early infarct. 2. Age related findings. (8) Atrial fibrillation with RVR: Code(s): I48.91 - Unspecified atrial fibrillation Status: Acute Assessment and Plan: Patient with uncontrolled AFib with RVR complicated by shock He had received several boluses of amiodarone and was on amiodarone infusion Patient is already anticoagulated at baseline 03/27 Status post DC cardioversion by Cardiology 03/28 amiodarone infusion was discontinued patient went back into tachycardia and was restarted. 03/31 patient bradycardic overnight and amiodarone was discontinued again. Continue to monitor Currently in sinus Curly in high 50s Monitor rhythm closely (9) Severe mitral regurgitation: C
[2022-04-01] MEDS: PROPOFOL IV EMULSION 100 ML 27 MG IV CONT (18:18)
[2022-04-01 18:23] LABS: Glucose Point of Care 129 mg/dl (65-105)
[2022-04-01 19:09] LABS: Glucose Point of Care 109 mg/dl (65-105)
[2022-04-01] MEDS: ATORVASTATIN 40 MG TABLET 80 MG PO (20:06)
[2022-04-01] MEDS: PROPOFOL IV EMULSION 100 ML 23.63 MG IV CONT (21:07)
--- NOTE | 2022-04-01 22:34 | PC.NURSE ---
Propofol drip increased due to increased respiratory rate and frequent pressure limitation alarms on vent.
[2022-04-02] VITALS (32 sets, daily range): BP systolic 92–186; BP diastolic 59–115; PULSE 56–83; RESP 24–32; TEMP 36.6–37.9; O2SAT 93–99
[2022-04-02] MEDS: PROPOFOL IV EMULSION 100 ML 30.38 MG IV CONT (00:18)
[2022-04-02] MEDS: METOCLOPRAMIDE HCL 10 MG/10 ML SOLN UDC PO ×5 (00:19→23:54)
[2022-04-02 02:18] LABS: Glucose Point of Care 106 mg/dl (65-105)
[2022-04-02] MEDS: PROPOFOL IV EMULSION 100 ML 27 MG IV CONT ×6 (03:55→23:24)
[2022-04-02 04:03] LABS: Glucose Point of Care 146 mg/dl (65-105)
[2022-04-02 04:57] LABS: Alveolar/Arterial O2 Gradient 145.5 mmHg; Base Excess ABG 1.7 mEq/l (+/-2.0); Carboxyhemoglobin 0.3 % THb (0-2.0); Fractional Inspired Oxygen 40 %; Methemoglobin ABG 0.5 %THb (0-1.5); Oxygen Content ABG 14.7 %vol (16.0-22.0); Oxyhemoglobin 95.8 % THb (90.0-100.0); PCO2 ABG 34.3 mmHg (35.0-45.0); PO2 ABG 100.3 mmHg (80.0-100.0); PO2 FiO2 Ratio Arterial Blood 2.51 %; Reduced Hemoglobin 3.4 %THb (0-5.0); Total Hemoglobin 10.8 g/dL (12.0-18.0)
[2022-04-02 04:58] LABS: Modified Allen's Test Pass; Site Drawn LEFT RADIAL
[2022-04-02 04:59] LABS: Arterial Blood Gas Vent Mode CMV; Arterial Blood Gas Ventilator rate 28 /MIN; Device VENTILATOR
[2022-04-02 05:00] LABS: Arterial Blood Gas PEEP 10 cmH2O; Arterial Blood Gas Tidal Volume 450 ml
[2022-04-02] MEDS: CENTRAL LINE FLUSH 10 ML IV PUSH ×3 (05:25→20:58)
[2022-04-02 05:38] LABS: INR 1.7; Prothrombin Time 19.4 Seconds (11.1-14.7)
[2022-04-02 05:53] LABS: Alanine Aminotransferase 84 U/L (6-50); Albumin Level 3.4 g/dL (3.5-5.1); Alkaline Phosphatase 55 U/L (38-126); Anion Gap 15 mmol/L (8-16); Aspartate Amino Transferase 89 U/L (17-59); Bilirubin,Total 1.4 mg/dL (0.2-1.3); Blood Urea Nitrogen 82 mg/dL (9-20); Calcium 7.6 mg/dL (8.4-10.2); Carbon Dioxide 28 mmol/L (22-30); Chloride 94 mmol/L (98-107); Estimated CRCL calculation 13 ml/min; Estimated Glomerular Filt Rate 10; Glucose 131 mg/dL (65-110); Potassium 4.7 mmol/L (3.4-5.0); Sodium 137 mmol/L (137-145)
[2022-04-02] MEDS: CLOPIDOGREL BISULFATE 75 MG TABLET PO (08:09)
[2022-04-02 08:10] LABS: Glucose Point of Care 137 mg/dl (65-105)
[2022-04-02] MEDS: MINERAL OIL/WHITE PETROLATUM OINTMENT 1 APPLIC EACH EYE ×2 (08:14→20:57)
[2022-04-02] MEDS: PANTOPRAZOLE SODIUM IV 40 MG VIAL IV PUSH (08:14)
[2022-04-02] MEDS: levETIRAcetam 500MG/NACL 100ML 500 MG/100 ML BAG 400 MG IVPB ×2 (08:15→21:00)
[2022-04-02 08:19] LABS: Basophils Percent Auto 0.3 % (0.2-1.2); Eosinophils Absolute Auto 0.3 K/mm3 (0-0.3); Eosinophils Percent Auto 2.7 % (0-4.4); Hematocrit 30.8 % (42.0-52.0); Hemoglobin 10.4 g/dL (14.0-18.0); Immature Granulocyte Absolute 0.41 K/mm3 (0.00-0.031); Immature Granulocyte Percent A 3.9 % (0-0.5); Immature Platelet Fraction Pct 8.5 % (0.9-11.2); Lymphocytes Absolute Auto 0.85 K/mm3 (0.9-3.2); Mean Corpuscular HGB Conc 33.8 g/dl (32-36); Mean Corpuscular Hemoglobin 25.4 pg (26-34); Mean Corpuscular Volume 75.1 fl (80-100); Mean Platelet Volume 12.4 fl (7.4-10.4); Monocytes Absolute Auto 0.9 K/mm3 (0.1-0.6); Monocytes Percent Auto 8.1 % (2.6-8.5); Neutrophils Absolute Auto 8.2 K/mm3 (1.3-6.7); Platelet Count Result 104 k/mm3 (150-375); Red Cell Distribution Width 15.5 % (11.5-14.5); White Blood Count 10.6 K/mm3 (4.5-10.0)
[2022-04-02 08:25] LABS: Magnesium 2.3 mg/dL (1.6-2.3)
[2022-04-02] MEDS: CALCIUM GLUC 2,000 MG/NS 100ML 2,000 MG/100 ML BAG 100 MG IVPB (08:35)
--- NOTE | 2022-04-02 08:43 | P.NEURO_ITS ---
Neurology EEG Report General Information Date of Study: 04/02/22 TEST Routine EEG DIAGNOSIS Post-cardiac arrest, seizure-like activity CONDITION OF RECORDING Patient not currently sedated. Has jerking movements throughout the study. EEG NUMBER [id number] CLINICAL HISTORY Patient currently admitted to ICU post-cardiac arrest. Noted to have myoclonic jerks concerning for possible seizures. EEG DESCRIPTION Patient is not on any sedation during recording. A 16 channel EEG was performed in the international 10-20 system. The background rhythm is slowed in the range of 1-2 hrtz. Amplitude is very suppressed. There is minimal reactivity with stim ulus (suctioning). No sleep architecture is noted. There are no epileptiform discharges or electrographic seizures noted during the recording.There is no EEG correlate with the jerking movements that were captured during the EEG. IMPRESSION This is an abnormal EEG due to the presence of diffuse slowing and suppressed background. The episodes of concern did not have EEG correlate. There are no electrographic seizures or epileptiform features identified. EEG findings are consistent with severe encephalopathy. Clinical correlation is recommended.
--- NOTE | 2022-04-02 09:02 | WPDINTPN ---
Progress Note: A&P Assessment and Plan (1) Respiratory failure: Code(s): J96.90 - Respiratory failure, unspecified, unspecified whether with hypoxia or hypercapnia Status: Acute Assessment and Plan: Severe acute hypoxic respiratory failure secondary to pulmonary edema Patient was intubated 03/27 early in the morning and placed on mechanical ventilation He is currently on 10 of PEEP and 35 % FiO2. ABG reviewed -decrease rate to 24 Continue tidal volume of 450 Chest x-ray reviewed 03/29 Nimbex discontinue On propofol at this time for ventilator synchrony. Sedation holiday started this morning Continue dialysis to remove fluid Continue empiric antibiotics in the form of cefepime (2) Shock: Code(s): R57.9 - Shock, unspecified Status: Acute Assessment and Plan: Off vasopressors at this time stress dose steroids discontinued (3) Type 2 diabetes mellitus: Code(s): E11.9 - Type 2 diabetes mellitus without complications Status: Acute Assessment and Plan: Continue Sliding scale insulin DC Lantus (4) Acute on chronic systolic CHF (congestive heart failure): Code(s): I50.23 - Acute on chronic systolic (congestive) heart failure Status: Acute Assessment and Plan: Baseline cardiac function but Echo done here at [place] on this as physician shows ? 1. Left ventricular systolic function is severely reduced, estimated at <15%. ? 2. Right ventricular systolic function is reduced. ? 3. Left atrial chamber dimension is severely enlarged. ? 4. There is severe mitral valve regurgitation Likely this has been worsened by his uncontrolled AFib with RVR Limited repeat echo 04/01 1. Definity contrast used to improve visualization. ? 2. Left ventricular systolic function is mildly reduced, estimated at 40-45%. ? 3. Left ventricular chamber dimension is moderately enlarged. ? 4. The inferior segment is akinetic. ? 5. Biatrial dilation. ? 6. Small amount of mitral and aortic regurgitation (5) Cardiomyopathy: Code(s): I42.9 - Cardiomyopathy, unspecified Status: Acute Assessment and Plan: See above (6) JANIE (acute kidney injury): Code(s): N17.9 - Acute kidney failure, unspecified Status: Acute Assessment and Plan: I had multiple discussions with the family members regarding initiating hemodialysis but they could not make any decision. And yesterday afternoon they agreed to proceed with hemodialysis. Patient's INR was high putting him at risk of bleeding. Patient was given Kcentra to reverse coagulopathy. 03/30 temporary hemodialysis catheter placed in right IJ. patient received his 1st dialysis session 04/01 patient had 2nd dialysis session Patient also has mild rhabdomyolysis. Electrolytes acceptable Monitor Nephrology following (7) Cardiac arrest: Code(s): I46.9 - Cardiac arrest, cause unspecified Status: Acute Assessment and Plan: Patient's cardiac arrest is likely combination of respiratory and cardiac issues. Patient had hypoxic respiratory failure from pulmonary edema and also was AFib with RVR and also has cardiomyopathy with EF less than 15% and severe MR. He was cardioverted 03/27 opening any continues to be in sinus rhythm Monitor and treat electrolytes. This does not appear to be ACS With prolonged down time patient may have anoxic injury although there is no way to assess at this time since patient is already sedated and chemically paralyzed. Patient also remained in and unstable rhythm with shock until this morning until he was cardioverted. Also had a PEA arrest which has not shown consistent benefit with TTM. Patient is also out of 6 hour time frame window of initiating TTM. Despite that I started patient on moderate TTM to try to keep his temperature less than 36 C for next 24 hours. He completed 24 hours of the TTM yesterday evening and now rewarming 03/[address] 1. Areas of prior infarction with
[2022-04-02 09:26] LABS: Partial Thromboplastin Time 34.1 SECONDS (22.3-36.8)
[2022-04-02] MEDS: AMIODARONE 150 MG/D5W 100 ML 150 MG/100 ML BAG 600 MG IV CONT (09:44)
[2022-04-02] MEDS: HEPARIN SOD/D5W 100 UNITS/ML 25,000 UNITS/250 ML BAG 15 UNITS IV CONT (09:51)
--- NOTE | 2022-04-02 11:00 | PM.PNCARD ---
Progress Note: A&P Assessment and Plan (1) Thrombocytopenia: Code(s): D69.6 - Thrombocytopenia, unspecified Status: Acute (2) Rhabdomyolysis: Code(s): M62.82 - Rhabdomyolysis Status: Acute (3) Coagulopathy: Code(s): D68.9 - Coagulation defect, unspecified Status: Acute (4) Hyperlipidemia: Code(s): E78.5 - Hyperlipidemia, unspecified Status: Acute (5) Sepsis: Code(s): A41.9 - Sepsis, unspecified organism Status: Acute (6) Severe mitral regurgitation: Code(s): I34.0 - Nonrheumatic mitral (valve) insufficiency Status: Acute (7) Atrial fibrillation with RVR: Code(s): I48.91 - Unspecified atrial fibrillation Status: Acute (8) Cardiac arrest: Code(s): I46.9 - Cardiac arrest, cause unspecified Status: Acute (9) Shock: Code(s): R57.9 - Shock, unspecified Status: Acute (10) Respiratory failure: Code(s): J96.90 - Respiratory failure, unspecified, unspecified whether with hypoxia or hypercapnia Status: Acute (11) Type 2 diabetes mellitus: Code(s): E11.9 - Type 2 diabetes mellitus without complications Status: Acute (12) Acute on chronic systolic CHF (congestive heart failure): Code(s): I50.23 - Acute on chronic systolic (congestive) heart failure Status: Acute (13) History of stroke: Code(s): Z86.73 - Personal history of transient ischemic attack (TIA), and cerebral infarction without residual deficits Status: Acute (14) JANIE (acute kidney injury): Code(s): N17.9 - Acute kidney failure, unspecified Status: Acute Plan Echocardiogram done yesterday [facility] showed improvement in LVEF to 40-45% with inferior wall akinesis, trace MR, and mild AI. Patient remains critically ill. Continue with supportive care. Improvement in platelet count, would continue with Heparin drip as tolerated. Subjective Date/time seen: 04/02/22 11:00 Interval history: Patient remains critically ill. On mechanical ventilation. Review of Systems Review of Systems: ROS unobtainable: Yes unobtainable due to endotracheal tube Exam Const: Other: Critically ill Resp: Other: On mechanical ventilation Cardio: Rhythm: abnormal rhythm irregularly irregular Urinary Catheter: Urinary Catheter: other ([place] in place) Extrem: Other: Edema of upper extremities Objective Data Vital Signs Vital Signs: Vital Signs - 24 hr 04/01/22 11:02 04/01/22 11:16 04/01/22 11:30 Temperature Pulse Rate 66 70 68 Respiratory Rate Blood Pressure 114/73 124/73 Pulse Oximetry 94 Oxygen Delivery Mechanical Ventilation Fraction of Inspired Oxygen 35 04/01/22 11:45 04/01/22 12:00 04/01/22 11:52 Temperature 37.6 C Pulse Rate 64 61 64 Respiratory Rate 28 H Blood Pressure 111/78 113/78 111/78 Pulse Oximetry 95 Oxygen Delivery Fraction of Inspired Oxygen 04/01/22 12:16 04/01/22 12:26 04/01/22 12:34 Temperature 37.0 C Pulse Rate 63 68 63 Respiratory Rate 25 H Blood Pressure 108/75 109/74 109/71 Pulse Oximetry 94 Oxygen Delivery Fraction of Inspired Oxygen 04/01/22 12:35 04/01/22 12:00 04/01/22 12:00 Temperature 37.0 C Pulse Rate 63 Respiratory Rate 26 H 28 H Blood Pressure Pulse Oximetry 94 94 Oxygen Delivery Mechanical Ventilation Fraction of Inspired Oxygen 35 35 04/01/22 12:00 04/01/22 13:52 04/01/22 13:52 Temperature 37.8 C H Pulse Rate 63 36 L 36 L Respiratory Rate 28 H Blood Pressure 109/73 Pulse Oximetry 91 Oxygen Delivery Fraction of Inspired Oxygen 04/01/22 14:00 04/01/22 16:00 04/01/22 16:00 Temperature 38.2 C H 38.1 C H Pulse Rate 66 74 Respiratory Rate 26 H Blood Pressure 138/82 Pulse Oximetry 91 91 Oxygen Delivery Mechanical Ventilation Fraction of Inspired Oxygen 40 04/01/22 17:09 04/01/22 17:00 04/01/22 15:50 Temperature 38.2 C H Pulse Rate
--- NOTE | 2022-04-02 11:19 | PCNFU ---
Nutrition Follow-Up Complete: Inadequate Oral Intake as related to mechanical ventilation as evidenced by NPO. goal: Meet estimated nutritional needs Patient will continue current goal. Pt current nutrition is Nepro at 30 ml/hr. Last recorded weight is 107.9 kg, up from 105 kg on admit. Bowel Motility: No BM reported. Labs Reviewed:Glu 131, Cr 6.6, BUN 82, GFR 10, Alb 3.4 Meds Noted:Propofol 27 ml/lv=228 kcals, Keppra, Reglan, Cefepime,Heparin Skin: WNL Additional Notes: Patient remains on mechanical vent and tube feedings of Nepro had been at 50 ml/hr, with Propofol Infusion new orders for rate at 30 ml/hr. Current tube feeding providing 1188 kcals/53 gms protein/480 ml water. Additional 713 kcals from Propofol Infusion. Free water flush 30 ml q 4 hours. Plans for CAT scan today. Dialysis yesterday 04/03. Agree with diet orders at this time. Will monitor in ICU rounds and reassessing every Friday and Friday.
--- NOTE | 2022-04-02 11:46 | PM.PNNEP ---
Progress Note: A&P Assessment and Plan (1) JANIE (acute kidney injury): Code(s): N17.9 - Acute kidney failure, unspecified Status: Acute Assessment and Plan: due to ATN from hemodynamic instability, cardiac arrest, and likely pre-renal azotemia from poor heart function evaluation to date: urine electrolytes pre renal. CPK is mildly high/elevated renal ultrasound is normal plan HD tomorrow with fluid removal as tolerated by hemodynamics follow repeat labs for the potential of renal recovery follow electrolytes, volume status, and clearance (2) Respiratory failure: Code(s): J96.90 - Respiratory failure, unspecified, unspecified whether with hypoxia or hypercapnia Status: Acute Assessment and Plan: felt to be seconary to pulmonary edema and cardiac arrest fluid removal with dialysis as tolerated ventilator weaning as tolerated (3) CHF (congestive heart failure): Code(s): I50.9 - Heart failure, unspecified Status: Acute Assessment and Plan: EF less then 15% by last echo also has severe MR as well continue fluid removal with dialysis as tolerated (4) Sepsis: Code(s): A41.9 - Sepsis, unspecified organism Status: Acute Assessment and Plan: blood cultures negative to date off vasopressor therapy at this time empiric antibiotics (5) Cardiac arrest: Code(s): I46.9 - Cardiac arrest, cause unspecified Status: Acute Assessment and Plan: continue supportive therapy concern with regard to possible anoxic brain injury (6) Type 2 diabetes mellitus: Code(s): E11.9 - Type 2 diabetes mellitus without complications Status: Acute Assessment and Plan: follow accuchecks glycemic control Will continue to follow Subjective Date/time seen: 04/02/22 11:46 Febrile overnight but remains hemodynamically stable without the need for vasopressor therapy; remains intubated and on mechanical ventilation; tolerated dialysis yesterday with ~ 3L fluid removal; no other issues/events overnight or earlier this AM. Exam Narrative: General:elderly AA male in NAD; intubated and on mechanical ventilation Heart: normal S1 and S2; no rub Lungs: coarse breath sounds Abdomen: soft, nontender, nondistended, positive bowel sounds Extremities: no cyanosis or clubbing; 1 - 2+ edema Skin: warm and intact Objective Data Vital Signs Vital Signs: Vital Signs Temp Pulse Resp BP Pulse Ox O2 Del Method FiO2 04/02/22 11:00 72 95 Mechanical Ventilation 50 04/02/22 10:00 37.7 C H 72 32 H 126/78 93 04/02/22 10:00 73 04/02/22 09:44 83 186/115 H 04/02/22 09:44 83 30 H 04/02/22 08:31 69 95 Mechanical Ventilation 40 04/02/22 08:00 64 04/02/22 08:00 95 Mechanical Ventilation 40 04/02/22 08:00 40 04/02/22 08:00 36.6 C 62 25 H 107/72 99 04/02/22 07:51 64 28 H 04/02/22 07:50 60 28 H 04/02/22 07:38 60 28 H 04/02/22 05:39 37.1 C 66 28 H 113/70 98 04/02/22 05:39 66 04/02/22 04:00 61 04/02/22 04:40 62 97 Mechanical Ventilation 40 04/02/22 04:00 37.2 C 61 28 H 95/64 L 97 04/02/22 04:00 40 04/02/22 04:00 61 28 H 97 Mechanical Ventilation 40 04/02/22 03:55 61 28 H 04/02/22 03:46 61 28 H 04/02/22 02:23 62 97 Mechanical Ventilation 40 04/02/22 02:17 66 28 H 04/02/22 02:00 37.6 C 59 L 29 H 92/59 L 95 04/02/22 02:00 59 L 04/02/22 00:00 63 28 H 94 Mechanical Ventilation 40 04/02/22 00:00 40 04/02/22 00:00 63 04/01/22 23:20 66 99 Mechanical Ventilation 40 04/02/22 00:18 68 28 H 04/02/22 00:18 68 28 H 04/02/22 00:00 37.9 C H 63 28 H 94/65 L 94 04/01/22 22:53 68 35 H 04/01/22 22:33 67 34 H 04/01/22 22:00 37.7 C H 67 31 H 100/69 95 04/01/22 22:00
--- NOTE | 2022-04-02 11:46 | P.PNNP_ITS ---
Progress Note: A&P Assessment and Plan (1) JANIE (acute kidney injury): Code(s): N17.9 - Acute kidney failure, unspecified Status: Acute Assessment and Plan: * due to ATN from hemodynamic instability, cardiac arrest, and likely pre-renal azotemia from poor heart function * evaluation to date: * urine electrolytes pre renal. * CPK is mildly high/elevated * renal ultrasound is normal * plan HD tomorrow with fluid removal as tolerated by hemodynamics * follow repeat labs for the potential of renal recovery * follow electrolytes, volume status, and clearance (2) Respiratory failure: Code(s): J96.90 - Respiratory failure, unspecified, unspecified whether with hypoxia or hypercapnia Status: Acute Assessment and Plan: * felt to be seconary to pulmonary edema and cardiac arrest * fluid removal with dialysis as tolerated * ventilator weaning as tolerated (3) CHF (congestive heart failure): Code(s): I50.9 - Heart failure, unspecified Status: Acute Assessment and Plan: * EF less then 15% by last echo * also has severe MR as well * continue fluid removal with dialysis as tolerated (4) Sepsis: Code(s): A41.9 - Sepsis, unspecified organism Status: Acute Assessment and Plan: * blood cultures negative to date * off vasopressor therapy at this time * empiric antibiotics (5) Cardiac arrest: Code(s): I46.9 - Cardiac arrest, cause unspecified Status: Acute Assessment and Plan: * continue supportive therapy * concern with regard to possible anoxic brain injury (6) Type 2 diabetes mellitus: Code(s): E11.9 - Type 2 diabetes mellitus without complications Status: Acute Assessment and Plan: * follow accuchecks * glycemic control Will continue to follow Subjective Date/time seen: 04/02/22 11:46 Febrile overnight but remains hemodynamically stable without the need for vasopressor therapy; remains intubated and on mechanical ventilation; tolerated dialysis yesterday with ~ 3L fluid removal; no other issues/events overnight or earlier this AM. Exam Narrative: General:elderly AA male in NAD; intubated and on mechanical ventilation Heart: normal S1 and S2; no rub Lungs: coarse breath sounds Abdomen: soft, nontender, nondistended, positive bowel sounds Extremities: no cyanosis or clubbing; 1 - 2+ edema Skin: warm and intact Objective Data Vital Signs Vital Signs: Vital Signs Temp Pulse Resp BP Pulse Ox O2 Del Method FiO2 04/02/22 11:00 72 95 Mechanical Ventilation 50 04/02/22 10:00 37.7 C H 72 32 H 126/78 93 04/02/22 10:00 73 04/02/22 09:44 83 186/115 H 04/02/22 09:44 83 30 H 04/02/22 08:31 69 95 Mechanical Ventilation 40 04/02/22 08:00 64 04/02/22 08:00 95 Mechanical Ventilation 40 04/02/22 08:00 40 04/02/22 08:00 36.6 C 62 25 H 107/72 99 04/02/22 07:51 64 28 H 04/02/22 07:50 60 28 H 04/02/22 07:38 60 28 H 04/02/22 05:39 37.1 C 66 28 H 113/70 98 04/02/22 05:39 66 04/02/22 04:00 61 04/02/22 04:40 62 97 Mechanical Ventilation 40 04/02/22 04:00 37.2 C 61 28 H 95/64 L 97 04/02/22 04:00 40 0
[2022-04-02 12:00] LABS: Glucose Point of Care 109 mg/dl (65-105)
[2022-04-02 16:11] LABS: Partial Thromboplastin Time 90.5 SECONDS (22.3-36.8)
[2022-04-02 16:27] LABS: Glucose Point of Care 132 mg/dl (65-105)
[2022-04-02 19:47] LABS: Glucose Point of Care 104 mg/dl (65-105)
[2022-04-02] MEDS: ATORVASTATIN 40 MG TABLET 80 MG PO (20:57)
[2022-04-02 23:42] LABS: Glucose Point of Care 121 mg/dl (65-105)
[2022-04-03] VITALS (50 sets, daily range): BP systolic 92–108; BP diastolic 66–77; PULSE 56–63; RESP 20–26; TEMP 36–37.3; O2SAT 64–100
[2022-04-03] MEDS: HEPARIN SOD/D5W 100 UNITS/ML 25,000 UNITS/250 ML BAG 13 UNITS IV CONT ×2 (01:59→20:54)
[2022-04-03] MEDS: PROPOFOL IV EMULSION 100 ML 27 MG IV CONT ×3 (02:55→11:00)
[2022-04-03 04:37] LABS: Hematocrit 29.3 % (42.0-52.0); Hemoglobin 10.2 g/dL (14.0-18.0); Mean Corpuscular HGB Conc 34.8 g/dl (32-36); Mean Corpuscular Hemoglobin 25.8 pg (26-34); Mean Corpuscular Volume 74.2 fl (80-100); Mean Platelet Volume 11.8 fl (7.4-10.4); Platelet Count Result 121 k/mm3 (150-375); Red Blood Count 3.95 M/mm3 (4.6-6.20); Red Cell Distribution Width 15.5 % (11.5-14.5); White Blood Count 8.4 K/mm3 (4.5-10.0)
[2022-04-03 05:03] LABS: Alanine Aminotransferase 73 U/L (6-50); Albumin Level 2.9 g/dL (3.5-5.1); Alkaline Phosphatase 61 U/L (38-126); Anion Gap 14 mmol/L (8-16); Aspartate Amino Transferase 72 U/L (17-59); Bilirubin,Total 0.8 mg/dL (0.2-1.3); Blood Urea Nitrogen 98 mg/dL (9-20); Carbon Dioxide 27 mmol/L (22-30); Chloride 93 mmol/L (98-107); Estimated CRCL calculation 10 ml/min; Estimated Glomerular Filt Rate 8; Glucose 117 mg/dL (65-110); Magnesium 2.4 mg/dL (1.6-2.3); Potassium 3.3 mmol/L (3.4-5.0); Sodium 134 mmol/L (137-145)
[2022-04-03] MEDS: CENTRAL LINE FLUSH 10 ML IV PUSH ×3 (05:49→20:59)
[2022-04-03] MEDS: METOCLOPRAMIDE HCL 10 MG/10 ML SOLN UDC PO ×3 (05:49→17:28)
[2022-04-03 05:51] LABS: Alveolar/Arterial O2 Gradient 156.7 mmHg; Carboxyhemoglobin 0.3 % THb (0-2.0); Fractional Inspired Oxygen 40 %; HCO3 ABG 24.8 mEq/l (22.0-26.0); Methemoglobin ABG 0.6 %THb (0-1.5); Oxygen Content ABG 14.9 %vol (16.0-22.0); Oxyhemoglobin 93.4 % THb (90.0-100.0); PO2 ABG 81.4 mmHg (80.0-100.0); PO2 FiO2 Ratio Arterial Blood 2.04 %; Reduced Hemoglobin 5.7 %THb (0-5.0); Total Hemoglobin 11.3 g/dL (12.0-18.0); pH ABG 7.399 (7.350-7.450)
[2022-04-03 05:52] LABS: Arterial Blood Gas PEEP 10 cmH2O; Arterial Blood Gas Tidal Volume 450 ml; Arterial Blood Gas Vent Mode CMV; Arterial Blood Gas Ventilator rate 24 /MIN; Device VENTILATOR; Modified Allen's Test Unable to perform; Site Drawn LEFT RADIAL
[2022-04-03 07:13] LABS: INR 1.6; Prothrombin Time 18.4 Seconds (11.1-14.7)
[2022-04-03 07:14] LABS: Partial Thromboplastin Time 79.6 SECONDS (22.3-36.8)
[2022-04-03 07:15] LABS: Glucose Point of Care 142 mg/dl (65-105)
[2022-04-03] MEDS: CLOPIDOGREL BISULFATE 75 MG TABLET PO (09:30)
[2022-04-03] MEDS: PANTOPRAZOLE SODIUM IV 40 MG VIAL IV PUSH (09:30)
[2022-04-03] MEDS: MINERAL OIL/WHITE PETROLATUM OINTMENT 1 APPLIC EACH EYE ×2 (09:31→20:57)
--- NOTE | 2022-04-03 11:15 | PCFNICU ---
ICU Rounding Note: Pt current nutrition is Nepro at 30 ml/hr. Last recorded weight is 108.2 kg, up from 105 kg on admit. Bowel Motility: No BM reported, plans for Lactulose today Labs Reviewed: GFR 8, ALl 2.9, Hgb 10.2, Mg 2.4, PO4 7.0, K 3.3 Meds Noted:Propofol 27 ml/ip=649 kcals, Keppra, Reglan, Cefepime,Heparin Skin: WNL Additional Notes: Patient remains on mechanical vent and tube feedings of Nepro at 30 ml/hr. Free water flush 30 ml q 4hours. Plans for Precedex and wean Propofol today. Current Propofol infusion providing an additional [address] scan showing old stroke. Agree with diet orders. Following daily in ICU rounds. Will monitor in ICU rounds and reassessing every Friday and Friday.
--- NOTE | 2022-04-03 12:06 | WPDINTPN ---
Progress Note: A&P Assessment and Plan (1) Respiratory failure: Code(s): J96.90 - Respiratory failure, unspecified, unspecified whether with hypoxia or hypercapnia Status: Acute Assessment and Plan: Severe acute hypoxic respiratory failure secondary to pulmonary edema Patient was intubated 03/27 early in the morning and placed on mechanical ventilation, at that time patient was also severely hypoxic and was placed in prone position -currently on CMV mode of ventilation, peep of 10 and 40% FiO2, maintain O2 sats greater than 92%. -ABG reviewed and chest x-ray reviewed 03/29 Nimbex discontinue -On propofol at this time for ventilator synchrony. I have asked the bedside RN to switch to Precedex infusion and turn off propofol to see if patient wakes up -Continue dialysis to remove fluid -Continue cefepime as empiric antibiotics (2) Shock: Code(s): R57.9 - Shock, unspecified Status: Acute Assessment and Plan: Off vasopressors at this time stress dose steroids discontinued (3) Type 2 diabetes mellitus: Code(s): E11.9 - Type 2 diabetes mellitus without complications Status: Acute Assessment and Plan: Continue Sliding scale insulin (4) Acute on chronic systolic CHF (congestive heart failure): Code(s): I50.23 - Acute on chronic systolic (congestive) heart failure Status: Acute Assessment and Plan: 03/26/2022: Echocardiogram ? 1. Left ventricular systolic function is severely reduced, estimated at <15%. ? 2. Right ventricular systolic function is reduced. ? 3. Left atrial chamber dimension is severely enlarged. ? 4. There is severe mitral valve regurgitation Limited repeat echo 04/01 1. Definity contrast used to improve visualization. ? 2. Left ventricular systolic function is mildly reduced, estimated at 40-45%. ? 3. Left ventricular chamber dimension is moderately enlarged. ? 4. The inferior segment is akinetic. ? 5. Biatrial dilation. ? 6. Small amount of mitral and aortic regurgitation (5) Cardiomyopathy: Code(s): I42.9 - Cardiomyopathy, unspecified Status: Acute Assessment and Plan: See above (6) JANIE (acute kidney injury): Code(s): N17.9 - Acute kidney failure, unspecified Status: Acute Assessment and Plan: I had multiple discussions with the family members regarding initiating hemodialysis but they could not make any decision. And yesterday afternoon they agreed to proceed with hemodialysis. Patient's INR was high putting him at risk of bleeding. Patient was given Kcentra to reverse coagulopathy. 03/30 temporary hemodialysis catheter placed in right IJ. patient received his 1st dialysis session 04/01 patient had 2nd dialysis session Patient also has mild rhabdomyolysis. Electrolytes acceptable Monitor Dialysis per Nephrology (7) Cardiac arrest: Code(s): I46.9 - Cardiac arrest, cause unspecified Status: Acute Assessment and Plan: 03/26: Patient's cardiac arrest is likely combination of respiratory and cardiac issues. Patient had hypoxic respiratory failure from pulmonary edema and also was AFib with RVR and also has cardiomyopathy with EF less than 15% and severe MR. He was cardioverted 03/27 to sinus rhythm With prolonged down time patient may have anoxic injury although there is no way to assess at this time since patient is already sedated and chemically paralyzed. Patient also remained in and unstable rhythm with shock until he was cardioverted on 03/27. - Also had a PEA arrest which has not shown consistent benefit with TTM. Patient was started on moderate TTM to try to keep his temperature less than 36 C for next 24 hours. He is status post TTM with rewarming -03/[address] 1. Areas of prior infarction with subtle area of low attenuation in the medial aspect of the left parietal lobe which could reflect an early infarct. 2. Age related findings. -03/29 Paralytic was discontinu
[2022-04-03 12:27] LABS: Glucose Point of Care 84 mg/dl (65-105)
--- NOTE | 2022-04-03 12:36 | P.PNNP_ITS ---
Progress Note: A&P Assessment and Plan (1) JANIE (acute kidney injury): Code(s): N17.9 - Acute kidney failure, unspecified Status: Acute Assessment and Plan: * due to ATN from hemodynamic instability, cardiac arrest, and likely pre-renal azotemia from poor heart function * evaluation to date: * urine electrolytes pre renal. * CPK is mildly high/elevated * renal ultrasound is normal * HD today with fluid removal as tolerated by hemodynamics * follow repeat labs for the potential of renal recovery * follow electrolytes, volume status, and clearance (2) Respiratory failure: Code(s): J96.90 - Respiratory failure, unspecified, unspecified whether with hypoxia or hypercapnia Status: Acute Assessment and Plan: * felt to be seconary to pulmonary edema and cardiac arrest * fluid removal with dialysis as tolerated * ventilator weaning as tolerated * need tracheostomy and PEG??? (3) CHF (congestive heart failure): Code(s): I50.9 - Heart failure, unspecified Status: Acute Assessment and Plan: * EF less then 15% by initial echo * repeat Echo with EF now 40 - 45% * also has severe MR as well * continue fluid removal with dialysis as tolerated * Cardiology following (4) Cardiac arrest: Code(s): I46.9 - Cardiac arrest, cause unspecified Status: Acute Assessment and Plan: * continue supportive therapy * concern with regard to possible anoxic brain injury (5) Type 2 diabetes mellitus: Code(s): E11.9 - Type 2 diabetes mellitus without complications Status: Acute Assessment and Plan: * follow accuchecks * glycemic control Will continue to follow Subjective Date/time seen: 04/03/22 12:36 Tolerating dialysis treatment at the time of my visit (seen on HD at 12:25PM); otherwise, no real significant change - remains intubated and on mechanical ventilation with stable hemodynamics along with poor urine output; not waking up or following commands despite being off sedation. Exam Narrative: General:elderly AA male in NAD; intubated and on mechanical ventilation Heart: normal S1 and S2; no rub Lungs: coarse breath sounds Abdomen: soft, nontender, nondistended, positive bowel sounds Extremities: no cyanosis or clubbing; 1 - 2+ edema Skin: warm and intact Objective Data Vital Signs Vital Signs: Vital Signs Temp Pulse Resp BP Pulse Ox O2 Del Method FiO2 04/03/22 12:00 40 04/03/22 12:00 36.7 C 58 L 24 H 106/74 94 04/03/22 10:00 59 L 04/03/22 10:00 36.5 C 59 L 25 H 96/68 L 94 04/03/22 08:00 40 04/03/22 08:00 100 Mechanical Ventilation 40 04/03/22 08:00 62 04/03/22 11:07 62 100 Mechanical Ventilation 40 04/03/22 11:00 60 25 H 04/03/22 10:00 59 L 25 H 04/03/22 10:45 58 L 93/68 L 04/03/22 10:30 58 L 94/66 L 04/03/22 10:15 59 L 96/67 L 04/03/22 10:03 59 L 96/68 L 04/03/22 09:45 60 92/67 L 04/03/22 09:30 60 94/68 L 04/03/22 08:00 62 24 H 04/03/22 08:45 59 L 96 Mechanical Ventilation 40 04/03/22 09:15 59 L 92/66 L 04/03/22 09:00 60 98/69 L 04/03/22 08:45 60 98/69 L 04/03/22 08:38 58 L 100/69
--- NOTE | 2022-04-03 12:36 | PM.PNNEP ---
Progress Note: A&P Assessment and Plan (1) JANIE (acute kidney injury): Code(s): N17.9 - Acute kidney failure, unspecified Status: Acute Assessment and Plan: due to ATN from hemodynamic instability, cardiac arrest, and likely pre-renal azotemia from poor heart function evaluation to date: urine electrolytes pre renal. CPK is mildly high/elevated renal ultrasound is normal HD today with fluid removal as tolerated by hemodynamics follow repeat labs for the potential of renal recovery follow electrolytes, volume status, and clearance (2) Respiratory failure: Code(s): J96.90 - Respiratory failure, unspecified, unspecified whether with hypoxia or hypercapnia Status: Acute Assessment and Plan: felt to be seconary to pulmonary edema and cardiac arrest fluid removal with dialysis as tolerated ventilator weaning as tolerated need tracheostomy and PEG??? (3) CHF (congestive heart failure): Code(s): I50.9 - Heart failure, unspecified Status: Acute Assessment and Plan: EF less then 15% by initial echo repeat Echo with EF now 40 - 45% also has severe MR as well continue fluid removal with dialysis as tolerated Cardiology following (4) Cardiac arrest: Code(s): I46.9 - Cardiac arrest, cause unspecified Status: Acute Assessment and Plan: continue supportive therapy concern with regard to possible anoxic brain injury (5) Type 2 diabetes mellitus: Code(s): E11.9 - Type 2 diabetes mellitus without complications Status: Acute Assessment and Plan: follow accuchecks glycemic control Will continue to follow Subjective Date/time seen: 04/03/22 12:36 Tolerating dialysis treatment at the time of my visit (seen on HD at 12:25PM); otherwise, no real significant change - remains intubated and on mechanical ventilation with stable hemodynamics along with poor urine output; not waking up or following commands despite being off sedation. Exam Narrative: General:elderly AA male in NAD; intubated and on mechanical ventilation Heart: normal S1 and S2; no rub Lungs: coarse breath sounds Abdomen: soft, nontender, nondistended, positive bowel sounds Extremities: no cyanosis or clubbing; 1 - 2+ edema Skin: warm and intact Objective Data Vital Signs Vital Signs: Vital Signs Temp Pulse Resp BP Pulse Ox O2 Del Method FiO2 04/03/22 12:00 40 04/03/22 12:00 36.7 C 58 L 24 H 106/74 94 04/03/22 10:00 59 L 04/03/22 10:00 36.5 C 59 L 25 H 96/68 L 94 04/03/22 08:00 40 04/03/22 08:00 100 Mechanical Ventilation 40 04/03/22 08:00 62 04/03/22 11:07 62 100 Mechanical Ventilation 40 04/03/22 11:00 60 25 H 04/03/22 10:00 59 L 25 H 04/03/22 10:45 58 L 93/68 L 04/03/22 10:30 58 L 94/66 L 04/03/22 10:15 59 L 96/67 L 04/03/22 10:03 59 L 96/68 L 04/03/22 09:45 60 92/67 L 04/03/22 09:30 60 94/68 L 04/03/22 08:00 62 24 H 04/03/22 08:45 59 L 96 Mechanical Ventilation 40 04/03/22 09:15 59 L 92/66 L 04/03/22 09:00 60 98/69 L 04/03/22 08:45 60 98/69 L 04/03/22 08:38 58 L 100/69 04/03/22 08:13 40 04/03/22 07:31 36.4 C 63 24 H 103/73 94 04/03/22 06:47 61 24 H 04/03/22 06:38 61 24 H 04/03/22 06:00 36.2 C L 61 24 H 93/67 L 96 04/03/22 06:00 61 04/03/22 05:05 59 L 97 Mechanical Ventilation 40 04/03/22 04:00 36.4 C L 59 L 24 H 102/69 94 04/03/22 04:00 40 04/03/22 04:00 58 L 24 H 64 L Mechanical Ventilation 40 04/03/22 04:00 58 L 04/03/22 02:55 60 24 H 04/03/22 02:55 60 24 H 04/03/22 02:02 59 L 96 Mechanical Ventilation 40 04/03/22 02:00 36.2 C L 57 L 24 H 103/70 94 04/03/22 02:00 57 L 04/02/22 23:00 58 L 95 Mechanical Ventilation 40
[2022-04-03] MEDS: levETIRAcetam 500MG/NACL 100ML 500 MG/100 ML BAG 400 MG IVPB ×2 (13:12→21:38)
[2022-04-03] MEDS: dexmedeTOMIDine 400 MCG/100 ML 400 MCG/100 ML BAG 5.41 MCG IV CONT (13:17)
[2022-04-03] MEDS: LACTULOSE 20 GM/30 ML UDC PO (13:18)
[2022-04-03 13:37] LABS: Partial Thromboplastin Time 86.9 SECONDS (22.3-36.8)
[2022-04-03] MEDS: PROPOFOL IV EMULSION 100 ML 23.63 MG IV CONT (14:16)
[2022-04-03 16:25] LABS: Glucose Point of Care 129 mg/dl (65-105)
[2022-04-03] MEDS: PROPOFOL IV EMULSION 100 ML 13.5 MG IV CONT (18:48)
[2022-04-03 20:34] LABS: Glucose Point of Care 155 mg/dl (65-105)
[2022-04-03] MEDS: dexmedeTOMIDine 400 MCG/100 ML 400 MCG/100 ML BAG 13.53 MCG IV CONT (20:55)
[2022-04-03] MEDS: ATORVASTATIN 40 MG TABLET 80 MG PO (20:55)
[2022-04-04] VITALS (33 sets, daily range): BP systolic 99–112; BP diastolic 70–79; PULSE 60–74; RESP 2–35; TEMP 37.1–37.9; O2SAT 91–99
[2022-04-04] MEDS: METOCLOPRAMIDE HCL 10 MG/10 ML SOLN UDC PO ×5 (00:40→23:36)
[2022-04-04 00:41] LABS: Glucose Point of Care 128 mg/dl (65-105)
[2022-04-04] MEDS: PROPOFOL IV EMULSION 100 ML 10.13 MG IV CONT (01:52)
[2022-04-04] MEDS: dexmedeTOMIDine 400 MCG/100 ML 400 MCG/100 ML BAG 18.94 MCG IV CONT ×3 (03:53→20:31)
[2022-04-04 04:38] LABS: Glucose Point of Care 109 mg/dl (65-105)
[2022-04-04 04:52] LABS: Hematocrit 31.5 % (42.0-52.0); Hemoglobin 10.7 g/dL (14.0-18.0); Mean Corpuscular Hemoglobin 25.5 pg (26-34); Mean Corpuscular Volume 75.2 fl (80-100); Mean Platelet Volume 11.4 fl (7.4-10.4); Platelet Count Result 150 k/mm3 (150-375); Red Blood Count 4.19 M/mm3 (4.6-6.20); Red Cell Distribution Width 15.4 % (11.5-14.5)
[2022-04-04 05:01] LABS: INR 1.4; Prothrombin Time 16.7 Seconds (11.1-14.7)
[2022-04-04 05:03] LABS: Partial Thromboplastin Time 75.4 SECONDS (22.3-36.8)
[2022-04-04 05:09] LABS: Alanine Aminotransferase 72 U/L (6-50); Albumin Level 3.1 g/dL (3.5-5.1); Alkaline Phosphatase 64 U/L (38-126); Anion Gap 12 mmol/L (8-16); Aspartate Amino Transferase 65 U/L (17-59); Bilirubin,Total 0.9 mg/dL (0.2-1.3); Blood Urea Nitrogen 63 mg/dL (9-20); Calcium 8.4 mg/dL (8.4-10.2); Carbon Dioxide 25 mmol/L (22-30); Chloride 97 mmol/L (98-107); Estimated CRCL calculation 13 ml/min; Estimated Glomerular Filt Rate 10; Glucose 123 mg/dL (65-110); Magnesium 2.4 mg/dL (1.6-2.3); Phosphorus 6.3 mg/dL (2.5-4.5); Potassium 4.2 mmol/L (3.4-5.0); Sodium 134 mmol/L (137-145)
[2022-04-04] MEDS: CENTRAL LINE FLUSH 10 ML IV PUSH ×3 (05:36→20:32)
[2022-04-04 05:43] LABS: Alveolar/Arterial O2 Gradient 158.6 mmHg; Arterial Blood Gas Vent Mode CMV; Arterial Blood Gas Ventilator rate 24 /MIN; Base Excess ABG 1.4 mEq/l (+/-2.0); Carboxyhemoglobin 0.2 % THb (0-2.0); Device VENTILATOR; Fractional Inspired Oxygen 40 %; Methemoglobin ABG 0.3 %THb (0-1.5); Modified Allen's Test Unable to perform; Oxygen Content ABG 15.6 %vol (16.0-22.0); Oxygen Saturation ABG 94.4 % (95.0-100.0); Oxyhemoglobin 92.7 % THb (90.0-100.0); PCO2 ABG 46.5 mmHg (35.0-45.0); PO2 ABG 73.1 mmHg (80.0-100.0); PO2 FiO2 Ratio Arterial Blood 1.83 %; Reduced Hemoglobin 6.8 %THb (0-5.0); Site Drawn LEFT RADIAL; Total Hemoglobin 11.9 g/dL (12.0-18.0); pH ABG 7.381 (7.350-7.450)
[2022-04-04 05:44] LABS: Arterial Blood Gas PEEP 10 cmH2O; Arterial Blood Gas Tidal Volume 450 ml
[2022-04-04] MEDS: polyethylene glycoL 3350 17 GM POWD.PACK PO (08:29)
[2022-04-04] MEDS: MINERAL OIL/WHITE PETROLATUM OINTMENT 1 APPLIC EACH EYE ×2 (08:29→20:07)
[2022-04-04] MEDS: LACTULOSE 20 GM/30 ML UDC PO (08:29)
[2022-04-04] MEDS: PANTOPRAZOLE SODIUM IV 40 MG VIAL IV PUSH (08:29)
[2022-04-04] MEDS: CLOPIDOGREL BISULFATE 75 MG TABLET PO (08:29)
[2022-04-04] MEDS: levETIRAcetam 500MG/NACL 100ML 500 MG/100 ML BAG 400 MG IVPB ×2 (08:30→20:06)
[2022-04-04 09:08] LABS: Glucose Point of Care 124 mg/dl (65-105)
--- NOTE | 2022-04-04 09:21 | WPDINTPN ---
Progress Note: A&P Assessment and Plan (1) Respiratory failure: Code(s): J96.90 - Respiratory failure, unspecified, unspecified whether with hypoxia or hypercapnia Status: Acute Assessment and Plan: Severe acute hypoxic respiratory failure secondary to pulmonary edema Patient was intubated 03/27 early in the morning and placed on mechanical ventilation, at that time patient was also severely hypoxic and was placed in prone position -currently on CMV mode of ventilation, peep of 10 and 40% FiO2, maintain O2 sats greater than 92%. -ABG reviewed and chest x-ray reviewed 03/29 Nimbex discontinue -OFF propofol infusion, Pt started on Precedex. Pt still encephalopathtic and not waking up -Continue dialysis to remove fluid -Continue cefepime as empiric antibiotics (2) Shock: Code(s): R57.9 - Shock, unspecified Status: Acute Assessment and Plan: Off vasopressors at this time stress dose steroids discontinued (3) Type 2 diabetes mellitus: Code(s): E11.9 - Type 2 diabetes mellitus without complications Status: Acute Assessment and Plan: Continue Sliding scale insulin (4) Acute on chronic systolic CHF (congestive heart failure): Code(s): I50.23 - Acute on chronic systolic (congestive) heart failure Status: Acute Assessment and Plan: 03/26/2022: Echocardiogram ? 1. Left ventricular systolic function is severely reduced, estimated at <15%. ? 2. Right ventricular systolic function is reduced. ? 3. Left atrial chamber dimension is severely enlarged. ? 4. There is severe mitral valve regurgitation Limited repeat echo 04/01 1. Definity contrast used to improve visualization. ? 2. Left ventricular systolic function is mildly reduced, estimated at 40-45%. ? 3. Left ventricular chamber dimension is moderately enlarged. ? 4. The inferior segment is akinetic. ? 5. Biatrial dilation. ? 6. Small amount of mitral and aortic regurgitation (5) Cardiomyopathy: Code(s): I42.9 - Cardiomyopathy, unspecified Status: Acute Assessment and Plan: See above (6) JANIE (acute kidney injury): Code(s): N17.9 - Acute kidney failure, unspecified Status: Acute Assessment and Plan: I had multiple discussions with the family members regarding initiating hemodialysis but they could not make any decision. And yesterday afternoon they agreed to proceed with hemodialysis. Patient's INR was high putting him at risk of bleeding. Patient was given Kcentra to reverse coagulopathy. 03/30 temporary hemodialysis catheter placed in right IJ. patient received his 1st dialysis session 04/01 patient had 2nd dialysis session Patient also has mild rhabdomyolysis. Electrolytes acceptable Monitor Dialysis per Nephrology (7) Cardiac arrest: Code(s): I46.9 - Cardiac arrest, cause unspecified Status: Acute Assessment and Plan: 03/26: Patient's cardiac arrest is likely combination of respiratory and cardiac issues. Patient had hypoxic respiratory failure from pulmonary edema and also was AFib with RVR and also has cardiomyopathy with EF less than 15% and severe MR. He was cardioverted 03/27 to sinus rhythm With prolonged down time patient may have anoxic injury although there is no way to assess at this time since patient is already sedated and chemically paralyzed. Patient also remained in and unstable rhythm with shock until he was cardioverted on 03/27. - Also had a PEA arrest which has not shown consistent benefit with TTM. Patient was started on moderate TTM to try to keep his temperature less than 36 C for next 24 hours. He is status post TTM with rewarming -03/[address] 1. Areas of prior infarction with subtle area of low attenuation in the medial aspect of the left parietal lobe which could reflect an early infarct. 2. Age related findings. -03/29 Paralytic was discontinued. I have not been able to perform a complete sedation holiday due
--- NOTE | 2022-04-04 10:26 | P.PNNP_ITS ---
Progress Note: A&P Assessment and Plan (1) JANIE (acute kidney injury): Code(s): N17.9 - Acute kidney failure, unspecified Status: Acute Assessment and Plan: * due to ATN from hemodynamic instability, cardiac arrest, and likely pre-renal azotemia from poor heart function * evaluation to date: * urine electrolytes pre renal. * CPK is mildly high/elevated * renal ultrasound is normal * plan HD tomorrow with fluid removal as tolerated by hemodynamics * follow repeat labs for the potential of renal recovery * follow electrolytes, volume status, and clearance (2) Respiratory failure: Code(s): J96.90 - Respiratory failure, unspecified, unspecified whether with hypoxia or hypercapnia Status: Acute Assessment and Plan: * felt to be seconary to pulmonary edema and cardiac arrest * fluid removal with dialysis as tolerated * ventilator weaning as tolerated * need tracheostomy and PEG??? (3) CHF (congestive heart failure): Code(s): I50.9 - Heart failure, unspecified Status: Acute Assessment and Plan: * EF less then 15% by initial echo * repeat Echo with EF now 40 - 45% * also has severe MR as well * continue fluid removal with dialysis as tolerated * Cardiology following (4) Cardiac arrest: Code(s): I46.9 - Cardiac arrest, cause unspecified Status: Acute Assessment and Plan: * continue supportive therapy * concern with regard to possible anoxic brain injury (5) Anemia: Code(s): D64.9 - Anemia, unspecified Status: Acute Assessment and Plan: * due to JANIE and acute illness * Epogen with HD * follow trend of H/H (6) Type 2 diabetes mellitus: Code(s): E11.9 - Type 2 diabetes mellitus without complications Status: Acute Assessment and Plan: * follow accuchecks * glycemic control Will continue to follow Subjective Date/time seen: 04/04/22 10:26 Tolerated hemodialysis treamtent yesterday with 3.5L fluid removal; remains hemodynamically stable without the need for vasopressor therapy; urine output remains poor; remains on mechanical ventilation. Exam Narrative: General:elderly AA male in NAD; intubated and on mechanical ventilation Heart: normal S1 and S2; no rub Lungs: coarse breath sounds Abdomen: soft, nontender, nondistended, positive bowel sounds Extremities: no cyanosis or clubbing; 1+ edema Skin: no rash Objective Data Vital Signs Vital Signs: Vital Signs Temp Pulse Resp BP Pulse Ox O2 Del Method FiO2 04/04/22 10:00 37.4 C 63 24 H 100/75 95 04/04/22 10:00 62 04/04/22 08:00 60 04/04/22 08:00 96 Mechanical Ventilation 40 04/04/22 08:52 37.3 C 60 24 H 99/73 L 95 04/04/22 07:45 60 96 Mechanical Ventilation 40 04/04/22 08:33 60 24 H 04/04/22 08:33 60 24 H 04/04/22 08:10 60 24 H 04/04/22 08:00 40 04/04/22 08:00 37.3 C 60 21 H 99/73 L 96 04/04/22 06:33 60 24 H 04/04/22 06:00 37.1 C 2 L 99/70 L 96 04/04/22 06:00 61 04/04/22 05:00 61 96 Mechanical Ventilation 40 04/04/22 04:00 37.2 C 61 24 H 103/71 94 04/04/22 04:00 40 04/04/22 04:00 61 24 H 94 Mechanical Ventilation 40 04/04/22 04:00
--- NOTE | 2022-04-04 10:26 | PM.PNNEP ---
Progress Note: A&P Assessment and Plan (1) JANIE (acute kidney injury): Code(s): N17.9 - Acute kidney failure, unspecified Status: Acute Assessment and Plan: due to ATN from hemodynamic instability, cardiac arrest, and likely pre-renal azotemia from poor heart function evaluation to date: urine electrolytes pre renal. CPK is mildly high/elevated renal ultrasound is normal plan HD tomorrow with fluid removal as tolerated by hemodynamics follow repeat labs for the potential of renal recovery follow electrolytes, volume status, and clearance (2) Respiratory failure: Code(s): J96.90 - Respiratory failure, unspecified, unspecified whether with hypoxia or hypercapnia Status: Acute Assessment and Plan: felt to be seconary to pulmonary edema and cardiac arrest fluid removal with dialysis as tolerated ventilator weaning as tolerated need tracheostomy and PEG??? (3) CHF (congestive heart failure): Code(s): I50.9 - Heart failure, unspecified Status: Acute Assessment and Plan: EF less then 15% by initial echo repeat Echo with EF now 40 - 45% also has severe MR as well continue fluid removal with dialysis as tolerated Cardiology following (4) Cardiac arrest: Code(s): I46.9 - Cardiac arrest, cause unspecified Status: Acute Assessment and Plan: continue supportive therapy concern with regard to possible anoxic brain injury (5) Anemia: Code(s): D64.9 - Anemia, unspecified Status: Acute Assessment and Plan: due to JANIE and acute illness Epogen with HD follow trend of H/H (6) Type 2 diabetes mellitus: Code(s): E11.9 - Type 2 diabetes mellitus without complications Status: Acute Assessment and Plan: follow accuchecks glycemic control Will continue to follow Subjective Date/time seen: 04/04/22 10:26 Tolerated hemodialysis treamtent yesterday with 3.5L fluid removal; remains hemodynamically stable without the need for vasopressor therapy; urine output remains poor; remains on mechanical ventilation. Exam Narrative: General:elderly AA male in NAD; intubated and on mechanical ventilation Heart: normal S1 and S2; no rub Lungs: coarse breath sounds Abdomen: soft, nontender, nondistended, positive bowel sounds Extremities: no cyanosis or clubbing; 1+ edema Skin: no rash Objective Data Vital Signs Vital Signs: Vital Signs Temp Pulse Resp BP Pulse Ox O2 Del Method FiO2 04/04/22 10:00 37.4 C 63 24 H 100/75 95 04/04/22 10:00 62 04/04/22 08:00 60 04/04/22 08:00 96 Mechanical Ventilation 40 04/04/22 08:52 37.3 C 60 24 H 99/73 L 95 04/04/22 07:45 60 96 Mechanical Ventilation 40 04/04/22 08:33 60 24 H 04/04/22 08:33 60 24 H 04/04/22 08:10 60 24 H 04/04/22 08:00 40 04/04/22 08:00 37.3 C 60 21 H 99/73 L 96 04/04/22 06:33 60 24 H 04/04/22 06:00 37.1 C 2 L 99/70 L 96 04/04/22 06:00 61 04/04/22 05:00 61 96 Mechanical Ventilation 40 04/04/22 04:00 37.2 C 61 24 H 103/71 94 04/04/22 04:00 40 04/04/22 04:00 61 24 H 94 Mechanical Ventilation 40 04/04/22 04:00 60 04/04/22 03:53 60 24 H 04/04/22 03:39 60 24 H 04/04/22 02:00 60 96 Mechanical Ventilation 40 04/04/22 02:00 60 24 H 04/04/22 02:00 37.2 C 60 24 H 100/72 95 04/04/22 02:00 60 04/04/22 01:52 60 24 H 04/04/22 01:52 60 24 H 04/03/22 23:00 61 95 Mechanical Ventilation 40 04/04/22 00:00 37.2 C 61 24 H 100/70 95 04/04/22 00:00 40 04/04/22 00:00 61 24 H 95 Mechanical Ventilation 40 04/04/22 00:00 61 04/03/22 22:00 37.3 C 61 24 H 99/71 L 95 04/03/22 22:00 61 04/03/22 20:00 62 96 Mechanical Ventilation 40 04/03/22 20:00 37.2 C 62 24 H 100/69 95 04/03
--- NOTE | 2022-04-04 11:12 | PCFNICU ---
ICU Rounding Note: Pt current nutrition is Nepro at 50m/hr. Last recorded weight is 106.5 kg, up from 105 kg on admit. Bowel Motility: No BM reported-Miralax, Reglan, Lactulose Labs Reviewed: BUN 63, Cr 6.6,Glu 123, Na 134, Alb 3.1,Hct 31.5,Hgb 10.7 Meds Noted: Precedex, Keppra, Reglan, Cefepime, Plavix, Lactulose, Miralax,Heparin,Protonix. Skin: WNL Additional Notes: Patient remains on mechanical vent and tube feedings of Nepro. Tube feeding rate advanced to today to 50 ml/hr. Propofol has been discontinued. Tube feeding at goal rate providing 1980 kcals/89 gms protein/800 ml water. Free water flush 30 ml q 4hours. Agree with diet orders. Following daily in ICU rounds. Will monitor in ICU rounds and reassessing every Friday and Friday.
[2022-04-04 12:42] LABS: Glucose Point of Care 123 mg/dl (65-105)
--- NOTE | 2022-04-04 13:34 | P.PNIM_ITS ---
Progress Note: A&P Assessment and Plan (1) Respiratory failure: Code(s): J96.90 - Respiratory failure, unspecified, unspecified whether with hypoxia or hypercapnia Status: Acute Assessment and Plan: Severe acute hypoxic respiratory failure secondary to pulmonary edema Patient was intubated 03/27 early in the morning and placed on mechanical ventilation vent management per senior government program analyst (2) Shock: Code(s): R57.9 - Shock, unspecified Status: Acute Assessment and Plan: Continue vasopressin Levophed off received stress dose steroids Suspected sepsis as well and on broad-spectrum antibiotics (3) Type 2 diabetes mellitus: Code(s): E11.9 - Type 2 diabetes mellitus without complications Status: Acute Assessment and Plan: Continue Sliding scale insulin and Lantus (4) Acute on chronic systolic CHF (congestive heart failure): Code(s): I50.23 - Acute on chronic systolic (congestive) heart failure Status: Acute Assessment and Plan: Baseline cardiac function but Echo done here at [facility] on this as physician shows ? 1. Left ventricular systolic function is severely reduced, estimated at <15%. ? 2. Right ventricular systolic function is reduced. ? 3. Left atrial chamber dimension is severely enlarged. ? 4. There is severe mitral valve regurgitation Likely this has been worsened by his uncontrolled AFib with RVR severe MR and reduce systolic function less than 15% Cardiology following Repeat EF 40-45% on echo 04/01 (5) Cardiomyopathy: Code(s): I42.9 - Cardiomyopathy, unspecified Status: Acute Assessment and Plan: See above (6) JANIE (acute kidney injury): Code(s): N17.9 - Acute kidney failure, unspecified Status: Acute Assessment and Plan: continue to worsen needing hemodialysis. Nine hundred twenty-four temporary hemodialysis catheter placed in right IJ. Hemodialysis 03/30 tolerated well Nephrology following. (7) Cardiac arrest: Code(s): I46.9 - Cardiac arrest, cause unspecified Status: Acute Assessment and Plan: Patient coded 03/27: Patient's cardiac arrest is likely combination of respiratory and cardiac issues. Patient had hypoxic respiratory failure from pulmonary edema and also was AFib with RVR and also has cardiomyopathy with EF less than 15% and severe MR. He was cardioverted 03/27 opening any continues to be in sinus rhythm Monitor and treat electrolytes. This does not appear to be ACS With prolonged down time patient may have anoxic injury although there is no way to assess at this time since patient is already sedated and chemically paralyzed. Patient also remained in and unstable rhythm with shock until this morning until he was cardioverted. Also had a PEA arrest which has not shown consistent benefit with TTM. Patient is also out of 6 hour time frame window of initiating TTM. Despite that I started patient on moderate TTM to try to keep his temperature less than 36 C for next 24 hours. He completed 24 hours of the TTM yesterday evening and now rewarming 03/[address] 1. Areas of prior infarction with subtle area of low attenuation in the medial aspect of the left parietal lobe which could reflect an early infarct. 2. Age related findings. (8) Atrial fibrillation with RVR: Code(s): I48.91 - Unspecified atrial fibrillation Status: Acute Assessment and Plan: Patient with uncontrolled AFib with RVR complicated by shock He had received several boluses of amiodarone and was on amiodarone infusion Patient is already anticoagulated at b
[2022-04-04] MEDS: dexmedeTOMIDine 400 MCG/100 ML 400 MCG/100 ML BAG 16.23 MCG IV CONT (14:56)
[2022-04-04] MEDS: HEPARIN SOD/D5W 100 UNITS/ML 25,000 UNITS/250 ML BAG 13 UNITS IV CONT (14:57)
[2022-04-04 17:13] LABS: Glucose Point of Care 114 mg/dl (65-105)
[2022-04-04] MEDS: ATORVASTATIN 40 MG TABLET 80 MG PO (20:07)
[2022-04-04 20:14] LABS: Glucose Point of Care 127 mg/dl (65-105)
[2022-04-04 23:40] LABS: Glucose Point of Care 133 mg/dl (65-105)
[2022-04-05] VITALS (41 sets, daily range): BP systolic 94–117; BP diastolic 68–78; PULSE 56–99; RESP 20–35; TEMP 36–37.8; O2SAT 94–99
[2022-04-05] MEDS: dexmedeTOMIDine 400 MCG/100 ML 400 MCG/100 ML BAG 18.94 MCG IV CONT ×4 (02:24→17:45)
[2022-04-05 03:34] LABS: Glucose Point of Care 127 mg/dl (65-105)
[2022-04-05 04:37] LABS: Hematocrit 30.6 % (42.0-52.0); Hemoglobin 10.5 g/dL (14.0-18.0); Mean Corpuscular HGB Conc 34.3 g/dl (32-36); Mean Corpuscular Hemoglobin 25.5 pg (26-34); Mean Corpuscular Volume 74.3 fl (80-100); Mean Platelet Volume 11.6 fl (7.4-10.4); Platelet Count Result 195 k/mm3 (150-375); Red Blood Count 4.12 M/mm3 (4.6-6.20); Red Cell Distribution Width 15.4 % (11.5-14.5)
[2022-04-05 04:49] LABS: Alanine Aminotransferase 64 U/L (6-50); Albumin Level 3.2 g/dL (3.5-5.1); Alkaline Phosphatase 65 U/L (38-126); Anion Gap 19 mmol/L (8-16); Aspartate Amino Transferase 60 U/L (17-59); Bilirubin,Total 0.9 mg/dL (0.2-1.3); Blood Urea Nitrogen 84 mg/dL (9-20); Calcium 8.4 mg/dL (8.4-10.2); Carbon Dioxide 22 mmol/L (22-30); Chloride 94 mmol/L (98-107); Estimated CRCL calculation 10 ml/min; Estimated Glomerular Filt Rate 8; Glucose 131 mg/dL (65-110); Magnesium 2.4 mg/dL (1.6-2.3); Phosphorus 7.2 mg/dL (2.5-4.5); Potassium 4.5 mmol/L (3.4-5.0); Sodium 135 mmol/L (137-145)
[2022-04-05 04:57] LABS: INR 1.4; Prothrombin Time 16.2 Seconds (11.1-14.7)
[2022-04-05 04:58] LABS: Partial Thromboplastin Time 75.9 SECONDS (22.3-36.8)
[2022-04-05 05:20] LABS: Alveolar/Arterial O2 Gradient 130.1 mmHg; Carboxyhemoglobin 0.1 % THb (0-2.0); Fractional Inspired Oxygen 35 %; HCO3 ABG 23.6 mEq/l (22.0-26.0); Methemoglobin ABG 0.3 %THb (0-1.5); Oxygen Content ABG 14.9 %vol (16.0-22.0); Oxyhemoglobin 92.7 % THb (90.0-100.0); PO2 ABG 74.1 mmHg (80.0-100.0); PO2 FiO2 Ratio Arterial Blood 2.12 %; Reduced Hemoglobin 6.9 %THb (0-5.0); Total Hemoglobin 11.4 g/dL (12.0-18.0)
[2022-04-05 05:21] LABS: Arterial Blood Gas Vent Mode CMV; Arterial Blood Gas Ventilator rate 24 /MIN; Device VENTILATOR; Modified Allen's Test Unable to perform; Site Drawn LEFT RADIAL
[2022-04-05 05:22] LABS: Arterial Blood Gas PEEP 10 cmH2O; Arterial Blood Gas Tidal Volume 450 ml
[2022-04-05] MEDS: CENTRAL LINE FLUSH 10 ML IV PUSH ×3 (05:52→21:10)
[2022-04-05] MEDS: METOCLOPRAMIDE HCL 10 MG/10 ML SOLN UDC PO ×3 (05:53→17:46)
[2022-04-05 08:02] LABS: Glucose Point of Care 143 mg/dl (65-105)
[2022-04-05] MEDS: MINERAL OIL/WHITE PETROLATUM OINTMENT 1 APPLIC EACH EYE ×2 (08:30→21:10)
[2022-04-05] MEDS: CLOPIDOGREL BISULFATE 75 MG TABLET PO (08:30)
[2022-04-05] MEDS: polyethylene glycoL 3350 17 GM POWD.PACK PO (08:30)
[2022-04-05] MEDS: PANTOPRAZOLE SODIUM IV 40 MG VIAL IV PUSH (08:30)
[2022-04-05] MEDS: LACTULOSE 20 GM/30 ML UDC PO (08:30)
--- NOTE | 2022-04-05 08:40 | P.PNINT_ITS ---
Progress Note: A&P Assessment and Plan (1) Respiratory failure: Code(s): J96.90 - Respiratory failure, unspecified, unspecified whether with hypoxia or hypercapnia Status: Acute Assessment and Plan: Severe acute hypoxic respiratory failure secondary to pulmonary edema Patient was intubated 03/27 early in the morning and placed on mechanical ventilation, at that time patient was also severely hypoxic and was placed in prone position -currently on CMV mode of ventilation, peep of 10 and 40% FiO2, maintain O2 sats greater than 92%. -ABG reviewed and chest x-ray reviewed 03/29 Nimbex discontinue -OFF propofol infusion, Pt started on Precedex. Pt still encephalopathtic and not waking up -Continue dialysis to remove fluid -Continue cefepime as empiric antibiotics (2) Shock: Code(s): R57.9 - Shock, unspecified Status: Acute Assessment and Plan: Off vasopressors at this time stress dose steroids discontinued (3) Type 2 diabetes mellitus: Code(s): E11.9 - Type 2 diabetes mellitus without complications Status: Acute Assessment and Plan: Continue Sliding scale insulin -blood sugars have been stable (4) Acute on chronic systolic CHF (congestive heart failure): Code(s): I50.23 - Acute on chronic systolic (congestive) heart failure Status: Acute Assessment and Plan: 03/26/2022: Echocardiogram ? 1. Left ventricular systolic function is severely reduced, estimated at <15%. ? 2. Right ventricular systolic function is reduced. ? 3. Left atrial chamber dimension is severely enlarged. ? 4. There is severe mitral valve regurgitation Limited repeat echo 04/01 1. Definity contrast used to improve visualization. ? 2. Left ventricular systolic function is mildly reduced, estimated at 40-45%. ? 3. Left ventricular chamber dimension is moderately enlarged. ? 4. The inferior segment is akinetic. ? 5. Biatrial dilation. ? 6. Small amount of mitral and aortic regurgitation (5) Cardiomyopathy: Code(s): I42.9 - Cardiomyopathy, unspecified Status: Acute Assessment and Plan: See above (6) JANIE (acute kidney injury): Code(s): N17.9 - Acute kidney failure, unspecified Status: Acute Assessment and Plan: I had multiple discussions with the family members regarding initiating hemodialysis but they could not make any decision. And yesterday afternoon they agreed to proceed with hemodialysis. Patient's INR was high putting him at risk of bleeding. Patient was given Kcentra to reverse coagulopathy. 03/30 temporary hemodialysis catheter placed in right IJ. patient received his 1st dialysis session 04/01 patient had 2nd dialysis session Patient also has mild rhabdomyolysis. Electrolytes acceptable Monitor Dialysis per Nephrology (7) Cardiac arrest: Code(s): I46.9 - Cardiac arrest, cause unspecified Status: Acute Assessment and Plan: 03/26: Patient's cardiac arrest is likely combination of respiratory and cardiac issues. Patient had hypoxic respiratory failure from pulmonary edema and also was AFib with RVR and also has cardiomyopathy with EF less than 15% and severe MR. He was cardioverted 03/27 to sinus rhythm With prolonged down time patient may have anoxic injury although there is no way to assess at this time since patient is already sedated and chemically paralyzed. Patient also remained in and unstable rhythm with shock until he was cardioverted on 03/27. - Also had a PEA arrest which has not shown consistent benefit with TTM. Patient was started on moderate TT
[2022-04-05] MEDS: levETIRAcetam 500MG/NACL 100ML 500 MG/100 ML BAG 400 MG IVPB ×2 (09:33→21:09)
[2022-04-05] MEDS: HEPARIN SOD/D5W 100 UNITS/ML 25,000 UNITS/250 ML BAG 13 UNITS IV CONT (09:52)
--- NOTE | 2022-04-05 11:00 | PCNFU ---
Nutrition Follow-Up Complete: Inadequate Oral Intake as related to mechanical ventilation as evidenced by NPO. Goal: Meet estimated nutritional needs Goal: Patient is progressing towards goal. We will continue current goal. Pt current nutrition is Nepro at 50 ml/hr. Last recorded weight is 110.9 kg, up from 105 kg on admit. Bowel Motility:+Bm reported 04/05 Labs Reviewed:Mg 2.4, Cr 8.3,BUN 84, Glu 131, Alb 3.2 Meds Noted:Precedex, Keppra, Reglan, Cefepime, Plavix, Lactulose, Miralax,Heparin,Protonix. Skin:WNL Additional Notes: Patient remains on mechanical vent. Tube feedings are at goal of at 50 ml/hr, which are providing 1980 kcals/90 gms protein/800 ml water. Meeting 88% caloric needs and 100% protein needs. Free water flush 30 ml q 4 hours. Dialysis today. Agree with diet orders. Will monitor in ICU rounds and reassessing every Friday and Friday.
[2022-04-05] MEDS: SODIUM CHLORIDE 0.9% IV 1,000 ML 999 ML IV CONT (11:53)
--- NOTE | 2022-04-05 12:21 | P.PNNP_ITS ---
Progress Note: A&P Assessment and Plan (1) JANIE (acute kidney injury): Code(s): N17.9 - Acute kidney failure, unspecified Status: Acute Assessment and Plan: * due to ATN from hemodynamic instability, cardiac arrest, and likely pre-renal azotemia from poor heart function * evaluation to date: * urine electrolytes pre renal. * CPK is mildly high/elevated (but doubt high to adversely effect kidney function) * renal ultrasound is normal * HD today with fluid removal as tolerated by hemodynamics * follow repeat labs for the potential of renal recovery * follow electrolytes, volume status, and clearance * depending on level of care family once to pursue, next step would be transition temporary HD catheter to PermCath (2) Respiratory failure: Code(s): J96.90 - Respiratory failure, unspecified, unspecified whether with hypoxia or hypercapnia Status: Acute Assessment and Plan: * felt to be seconary to pulmonary edema and cardiac arrest * fluid removal with dialysis as tolerated * ventilator weaning as tolerated * need tracheostomy and PEG??? (3) CHF (congestive heart failure): Code(s): I50.9 - Heart failure, unspecified Status: Acute Assessment and Plan: * EF less then 15% by initial echo * repeat Echo with EF now 40 - 45% * also has severe MR as well * continue fluid removal with dialysis as tolerated * Cardiology following (4) Cardiac arrest: Code(s): I46.9 - Cardiac arrest, cause unspecified Status: Acute Assessment and Plan: * continue supportive therapy * concern with regard to possible anoxic brain injury (5) Anemia: Code(s): D64.9 - Anemia, unspecified Status: Acute Assessment and Plan: * due to JANIE and acute illness * Epogen with HD * follow trend of H/H (6) Type 2 diabetes mellitus: Code(s): E11.9 - Type 2 diabetes mellitus without complications Status: Acute Assessment and Plan: * follow accuchecks * glycemic control Will continue to follow Subjective Date/time seen: 04/05/22 12:21 Tolerating hemodialysis treatment at the time of my visit (seen on HD at ~ 12:10PM); remains essentially unchanged -- intubated and on mechanical ventilation with stable hemodynamics but remains unresponsive despite being off sedation; low urine output still an issue; no other event/issues overnight or earlier this AM. Exam Narrative: General:elderly AA male in NAD; intubated and on mechanical ventilation Heart: normal S1 and S2; no rub Lungs: coarse breath sounds Abdomen: soft, nontender, nondistended, positive bowel sounds Extremities: no cyanosis or clubbing; 1+ edema Skin: no rash Objective Data Vital Signs Vital Signs: Vital Signs Temp Pulse Resp BP Pulse Ox O2 Del Method FiO2 04/05/22 12:00 60 103/71 04/05/22 11:45 64 104/68 04/05/22 11:30 61 106/72 04/05/22 11:15 60 98/68 L 04/05/22 11:00 61 106/70 04/05/22 10:45 59 L 102/73 04/05/22 10:30 59 L 104/75 04/05/22 10:15 60 105/75 04/05/22 10:00 61 104/73 04/05/22 09:45 60 102/72 04/05/22 09:30 58 L 101/71 04/05/22 09:15 56 L 97/69 L 04/05/22 10:00 61 25 H 104/73 95 04/05/22 10:00 61
--- NOTE | 2022-04-05 12:21 | PM.PNNEP ---
Progress Note: A&P Assessment and Plan (1) JANIE (acute kidney injury): Code(s): N17.9 - Acute kidney failure, unspecified Status: Acute Assessment and Plan: due to ATN from hemodynamic instability, cardiac arrest, and likely pre-renal azotemia from poor heart function evaluation to date: urine electrolytes pre renal. CPK is mildly high/elevated (but doubt high to adversely effect kidney function) renal ultrasound is normal HD today with fluid removal as tolerated by hemodynamics follow repeat labs for the potential of renal recovery follow electrolytes, volume status, and clearance depending on level of care family once to pursue, next step would be transition temporary HD catheter to PermCath (2) Respiratory failure: Code(s): J96.90 - Respiratory failure, unspecified, unspecified whether with hypoxia or hypercapnia Status: Acute Assessment and Plan: felt to be seconary to pulmonary edema and cardiac arrest fluid removal with dialysis as tolerated ventilator weaning as tolerated need tracheostomy and PEG??? (3) CHF (congestive heart failure): Code(s): I50.9 - Heart failure, unspecified Status: Acute Assessment and Plan: EF less then 15% by initial echo repeat Echo with EF now 40 - 45% also has severe MR as well continue fluid removal with dialysis as tolerated Cardiology following (4) Cardiac arrest: Code(s): I46.9 - Cardiac arrest, cause unspecified Status: Acute Assessment and Plan: continue supportive therapy concern with regard to possible anoxic brain injury (5) Anemia: Code(s): D64.9 - Anemia, unspecified Status: Acute Assessment and Plan: due to JANIE and acute illness Epogen with HD follow trend of H/H (6) Type 2 diabetes mellitus: Code(s): E11.9 - Type 2 diabetes mellitus without complications Status: Acute Assessment and Plan: follow accuchecks glycemic control Will continue to follow Subjective Date/time seen: 04/05/22 12:21 Tolerating hemodialysis treatment at the time of my visit (seen on HD at ~ 12:10PM); remains essentially unchanged -- intubated and on mechanical ventilation with stable hemodynamics but remains unresponsive despite being off sedation; low urine output still an issue; no other event/issues overnight or earlier this AM. Exam Narrative: General:elderly AA male in NAD; intubated and on mechanical ventilation Heart: normal S1 and S2; no rub Lungs: coarse breath sounds Abdomen: soft, nontender, nondistended, positive bowel sounds Extremities: no cyanosis or clubbing; 1+ edema Skin: no rash Objective Data Vital Signs Vital Signs: Vital Signs Temp Pulse Resp BP Pulse Ox O2 Del Method FiO2 04/05/22 12:00 60 103/71 04/05/22 11:45 64 104/68 04/05/22 11:30 61 106/72 04/05/22 11:15 60 98/68 L 04/05/22 11:00 61 106/70 04/05/22 10:45 59 L 102/73 04/05/22 10:30 59 L 104/75 04/05/22 10:15 60 105/75 04/05/22 10:00 61 104/73 04/05/22 09:45 60 102/72 04/05/22 09:30 58 L 101/71 04/05/22 09:15 56 L 97/69 L 04/05/22 10:00 61 25 H 104/73 95 04/05/22 10:00 61 04/05/22 09:00 59 L 97/69 L 04/05/22 08:45 58 L 94/70 L 04/05/22 08:30 36 C L 61 20 95/70 L 96 04/05/22 08:00 60 04/05/22 08:00 58 L 25 H 96 Mechanical Ventilation 35 04/05/22 08:00 35 04/05/22 08:00 36.8 C 58 L 25 H 94/69 L 96 04/05/22 07:55 60 24 H 04/05/22 07:41 60 24 H 04/05/22 07:17 63 97 Mechanical Ventilation 35 04/05/22 06:00 64 28 H 106/73 96 04/05/22 06:00 64 04/05/22 05:05 63 96 Mechanical Ventilation 40 04/05/22 04:00 65 04/05/22 04:00 69 27 H 104/75 98 04/05/22 03:42 35 04/05/22 03:34 Mechanical Ventilation 35
[2022-04-05 14:15] LABS: Glucose Point of Care 141 mg/dl (65-105)
[2022-04-05 17:49] LABS: Glucose Point of Care 136 mg/dl (65-105)
[2022-04-05] MEDS: ATORVASTATIN 40 MG TABLET 80 MG PO (21:09)
[2022-04-05] MEDS: EPOETIN ALFA-EPBX 10,000 UNITS/ML VIAL 10000 UNITS IV PUSH (21:09)
[2022-04-06] VITALS (25 sets, daily range): BP systolic 101–112; BP diastolic 71–93; PULSE 55–70; RESP 24–26; TEMP 36.2–36.8; O2SAT 90–100
[2022-04-06] MEDS: dexmedeTOMIDine 400 MCG/100 ML 400 MCG/100 ML BAG 16.23 MCG IV CONT ×5 (00:02→23:29)
[2022-04-06] MEDS: METOCLOPRAMIDE HCL 10 MG/10 ML SOLN UDC PO ×4 (00:03→23:27)
[2022-04-06 01:09] LABS: Glucose Point of Care 129 mg/dl (65-105)
[2022-04-06 05:18] LABS: Alveolar/Arterial O2 Gradient 129.8 mmHg; Fractional Inspired Oxygen 35 %; HCO3 ABG 28.2 mEq/l (22.0-26.0); Methemoglobin ABG 0.2 %THb (0-1.5); Oxygen Content ABG 15.6 %vol (16.0-22.0); Oxygen Saturation ABG 95.2 % (95.0-100.0); Oxyhemoglobin 92.9 % THb (90.0-100.0); PCO2 ABG 40.9 mmHg (35.0-45.0); PO2 ABG 72.2 mmHg (80.0-100.0); PO2 FiO2 Ratio Arterial Blood 2.06 %; Reduced Hemoglobin 6.9 %THb (0-5.0); Total Hemoglobin 11.9 g/dL (12.0-18.0); pH ABG 7.457 (7.350-7.450)
[2022-04-06 05:20] LABS: Arterial Blood Gas Vent Mode CMV; Arterial Blood Gas Ventilator rate 24 /MIN; Device VENTILATOR; Modified Allen's Test Pass; Site Drawn LEFT RADIAL
[2022-04-06 05:21] LABS: Arterial Blood Gas PEEP 10 cmH2O; Arterial Blood Gas Tidal Volume 450 ml
[2022-04-06 05:43] LABS: Hematocrit 30.8 % (42.0-52.0); Hemoglobin 10.5 g/dL (14.0-18.0); Mean Corpuscular HGB Conc 34.1 g/dl (32-36); Mean Corpuscular Hemoglobin 24.7 pg (26-34); Mean Corpuscular Volume 72.5 fl (80-100); Mean Platelet Volume 11.4 fl (7.4-10.4); Platelet Count Result 229 k/mm3 (150-375); Red Blood Count 4.25 M/mm3 (4.6-6.20); Red Cell Distribution Width 15.3 % (11.5-14.5); White Blood Count 11.8 K/mm3 (4.5-10.0)
[2022-04-06] MEDS: HEPARIN SOD/D5W 100 UNITS/ML 25,000 UNITS/250 ML BAG 13 UNITS IV CONT (06:14)
[2022-04-06] MEDS: CENTRAL LINE FLUSH 10 ML IV PUSH ×3 (06:15→21:03)
[2022-04-06 06:16] LABS: Alanine Aminotransferase 70 U/L (6-50); Albumin Level 3.1 g/dL (3.5-5.1); Alkaline Phosphatase 88 U/L (38-126); Anion Gap 12 mmol/L (8-16); Aspartate Amino Transferase 66 U/L (17-59); Bilirubin,Total 0.7 mg/dL (0.2-1.3); Blood Urea Nitrogen 71 mg/dL (9-20); Calcium 8.2 mg/dL (8.4-10.2); Carbon Dioxide 28 mmol/L (22-30); Chloride 94 mmol/L (98-107); Estimated CRCL calculation 13 ml/min; Estimated Glomerular Filt Rate 10; Glucose 136 mg/dL (65-110); Magnesium 2.4 mg/dL (1.6-2.3); Phosphorus 5.9 mg/dL (2.5-4.5); Potassium 3.9 mmol/L (3.4-5.0); Sodium 134 mmol/L (137-145)
[2022-04-06] MEDS: levETIRAcetam 500MG/NACL 100ML 500 MG/100 ML BAG 400 MG IVPB ×2 (09:36→21:03)
[2022-04-06] MEDS: PANTOPRAZOLE SODIUM IV 40 MG VIAL IV PUSH (09:38)
[2022-04-06] MEDS: polyethylene glycoL 3350 17 GM POWD.PACK FEED TUBE (09:39)
[2022-04-06] MEDS: CLOPIDOGREL BISULFATE 75 MG TABLET PO (09:39)
[2022-04-06] MEDS: MINERAL OIL/WHITE PETROLATUM OINTMENT 1 APPLIC EACH EYE ×2 (09:40→21:03)
--- NOTE | 2022-04-06 10:25 | P.PNNP_ITS ---
Progress Note: A&P Assessment and Plan (1) JANIE (acute kidney injury): Code(s): N17.9 - Acute kidney failure, unspecified Status: Acute Assessment and Plan: * due to ATN from hemodynamic instability, cardiac arrest, and likely pre-renal azotemia from poor heart function * evaluation to date: * urine electrolytes pre renal. * CPK is mildly high/elevated (but doubt high to adversely effect kidney function) * renal ultrasound is normal * HD due on Friday. * Ongoing discussions with the family about aggressiveness of care. (2) Respiratory failure: Code(s): J96.90 - Respiratory failure, unspecified, unspecified whether with hypoxia or hypercapnia Status: Acute Assessment and Plan: * felt to be seconary to pulmonary edema and cardiac arrest * fluid removal with dialysis as tolerated * Still on full ventilator support. * need tracheostomy and PEG??? (3) CHF (congestive heart failure): Code(s): I50.9 - Heart failure, unspecified Status: Acute Assessment and Plan: * EF less then 15% by initial echo * repeat Echo with EF now 40 - 45% * also has severe MR as well * continue fluid removal with dialysis as tolerated * Cardiology following (4) Cardiac arrest: Code(s): I46.9 - Cardiac arrest, cause unspecified Status: Acute Assessment and Plan: * continue supportive therapy * concern with regard to possible anoxic brain injury (5) Anemia: Code(s): D64.9 - Anemia, unspecified Status: Acute Assessment and Plan: * due to JANIE and acute illness * Epogen with HD * Hemoglobin 10.5 today (6) Type 2 diabetes mellitus: Code(s): E11.9 - Type 2 diabetes mellitus without complications Status: Acute Assessment and Plan: * on Accu-Cheks and sliding-scale insulin Subjective Date/time seen: 04/06/22 10:25 Interval history: patient is on the ventilator. Still no sign of consciousness. He had dialysis yesterday and did well Exam Narrative: General:elderly AA male in NAD; intubated and on mechanical ventilation Heart: normal S1 and S2; no rub or gallop Lungs: coarse breath sounds Abdomen: soft, nontender, nondistended, positive bowel sounds Extremities: no cyanosis or clubbing; 1+ edema Skin: no rash or subcu nodules Objective Data Vital Signs Vital Signs: Vital Signs - 24 hr 04/05/22 10:30 04/05/22 10:45 04/05/22 11:00 Temperature Pulse Rate 59 L 59 L 61 Respiratory Rate Blood Pressure 104/75 102/73 106/70 Pulse Oximetry Oxygen Delivery Fraction of Inspired Oxygen 04/05/22 11:15 04/05/22 11:30 04/05/22 11:45 Temperature Pulse Rate 60 61 64 Respiratory Rate Blood Pressure 98/68 L 106/72 104/68 Pulse Oximetry Oxygen Delivery Fraction of Inspired Oxygen 04/05/22 12:00 04/05/22 12:42 04/05/22 12:42 Temperature Pulse Rate 60 58 L 58 L Respiratory Rate 24 H 24 H Blood Pressure 103/71 Pulse Oximetry Oxygen Delivery Fraction of Inspired Oxygen 04/05/22 12:00 04/05/22 12:00 04/05/22 12:00 Temperature 36.5 C Pulse Rate 58 L 60
--- NOTE | 2022-04-06 10:25 | PM.PNNEP ---
Progress Note: A&P Assessment and Plan (1) JANIE (acute kidney injury): Code(s): N17.9 - Acute kidney failure, unspecified Status: Acute Assessment and Plan: due to ATN from hemodynamic instability, cardiac arrest, and likely pre-renal azotemia from poor heart function evaluation to date: urine electrolytes pre renal. CPK is mildly high/elevated (but doubt high to adversely effect kidney function) renal ultrasound is normal HD due on Friday. Ongoing discussions with the family about aggressiveness of care. (2) Respiratory failure: Code(s): J96.90 - Respiratory failure, unspecified, unspecified whether with hypoxia or hypercapnia Status: Acute Assessment and Plan: felt to be seconary to pulmonary edema and cardiac arrest fluid removal with dialysis as tolerated Still on full ventilator support. need tracheostomy and PEG??? (3) CHF (congestive heart failure): Code(s): I50.9 - Heart failure, unspecified Status: Acute Assessment and Plan: EF less then 15% by initial echo repeat Echo with EF now 40 - 45% also has severe MR as well continue fluid removal with dialysis as tolerated Cardiology following (4) Cardiac arrest: Code(s): I46.9 - Cardiac arrest, cause unspecified Status: Acute Assessment and Plan: continue supportive therapy concern with regard to possible anoxic brain injury (5) Anemia: Code(s): D64.9 - Anemia, unspecified Status: Acute Assessment and Plan: due to JANIE and acute illness Epogen with HD Hemoglobin 10.5 today (6) Type 2 diabetes mellitus: Code(s): E11.9 - Type 2 diabetes mellitus without complications Status: Acute Assessment and Plan: on Accu-Cheks and sliding-scale insulin Subjective Date/time seen: 04/06/22 10:25 Interval history: patient is on the ventilator. Still no sign of consciousness. He had dialysis yesterday and did well Exam Narrative: General:elderly AA male in NAD; intubated and on mechanical ventilation Heart: normal S1 and S2; no rub or gallop Lungs: coarse breath sounds Abdomen: soft, nontender, nondistended, positive bowel sounds Extremities: no cyanosis or clubbing; 1+ edema Skin: no rash or subcu nodules Objective Data Vital Signs Vital Signs: Vital Signs - 24 hr 04/05/22 10:30 04/05/22 10:45 04/05/22 11:00 Temperature Pulse Rate 59 L 59 L 61 Respiratory Rate Blood Pressure 104/75 102/73 106/70 Pulse Oximetry Oxygen Delivery Fraction of Inspired Oxygen 04/05/22 11:15 04/05/22 11:30 04/05/22 11:45 Temperature Pulse Rate 60 61 64 Respiratory Rate Blood Pressure 98/68 L 106/72 104/68 Pulse Oximetry Oxygen Delivery Fraction of Inspired Oxygen 04/05/22 12:00 04/05/22 12:42 04/05/22 12:42 Temperature Pulse Rate 60 58 L 58 L Respiratory Rate 24 H 24 H Blood Pressure 103/71 Pulse Oximetry Oxygen Delivery Fraction of Inspired Oxygen 04/05/22 12:00 04/05/22 12:00 04/05/22 12:00 Temperature 36.5 C Pulse Rate 58 L 60 Respiratory Rate 24 H 24 H Blood Pressure 103/71 Pulse Oximetry 95 95 Oxygen Delivery Mechanical Ventilation Fraction of Inspired Oxygen 35 35 04/05/22 12:15 04/05/22 12:15 04/05/22 12:00 Temperature 36.4 C Pulse Rate 60 60 60 Respiratory Rate 20 Blood Pressure 112/73 112/73 Pulse Oximetry Oxygen Delivery Fraction of Inspired Oxygen 04/05/22 14:00 04/05/22 14:00 04/05/22 13:45 Temperature Pulse Rate 61 61 99 Respiratory Rate 24 H Blood Pressure 117/71 Pulse Oximetry 98 94 Oxygen Delivery Mechanical Ventilation Fraction of Inspired Oxygen 35 04/05/22 16:00 04/05/22 16:00 04/05/22 16:00 Temperature Pulse Rate 57 L 57 L Respiratory Rate 24 H Blood Pressure Pulse Oximetry 98 Oxygen Delivery Mechanical Ventilation Fraction of Inspired Oxygen
[2022-04-06 13:01] LABS: Glucose Point of Care 140 mg/dl (65-105)
[2022-04-06 18:09] LABS: Glucose Point of Care 152 mg/dl (65-105)
[2022-04-06] MEDS: ATORVASTATIN 40 MG TABLET 80 MG PO (21:04)
[2022-04-06 23:30] LABS: Glucose Point of Care 128 mg/dl (65-105)
[2022-04-07] VITALS (16 sets, daily range): BP systolic 94–113; BP diastolic 72–81; PULSE 57–68; RESP 17–25; TEMP 36.3–36.8; O2SAT 94–100
[2022-04-07] MEDS: HEPARIN SOD/D5W 100 UNITS/ML 25,000 UNITS/250 ML BAG 13 UNITS IV CONT (01:39)
[2022-04-07 05:37] LABS: Hematocrit 30.3 % (42.0-52.0); Hemoglobin 10.4 g/dL (14.0-18.0); Mean Corpuscular HGB Conc 34.3 g/dl (32-36); Mean Corpuscular Hemoglobin 24.9 pg (26-34); Mean Corpuscular Volume 72.7 fl (80-100); Mean Platelet Volume 11.6 fl (7.4-10.4); Platelet Count Result 271 k/mm3 (150-375); Red Blood Count 4.17 M/mm3 (4.6-6.20); Red Cell Distribution Width 15.2 % (11.5-14.5); White Blood Count 12.4 K/mm3 (4.5-10.0)
[2022-04-07 05:49] LABS: Alveolar/Arterial O2 Gradient 77.9 mmHg; Base Excess ABG 2.3 mEq/l (+/-2.0); Carboxyhemoglobin 0.3 % THb (0-2.0); Fractional Inspired Oxygen 35 %; HCO3 ABG 26.1 mEq/l (22.0-26.0); Methemoglobin ABG 0.3 %THb (0-1.5); Oxygen Content ABG 14.6 %vol (16.0-22.0); Oxygen Saturation ABG 98.7 % (95.0-100.0); Oxyhemoglobin 97.1 % THb (90.0-100.0); PCO2 ABG 37.3 mmHg (35.0-45.0); PO2 ABG 128.3 mmHg (80.0-100.0); PO2 FiO2 Ratio Arterial Blood 3.67 %; Reduced Hemoglobin 2.3 %THb (0-5.0); Total Hemoglobin 10.5 g/dL (12.0-18.0); pH ABG 7.462 (7.350-7.450)
[2022-04-07 05:50] LABS: Modified Allen's Test Pass; Site Drawn LEFT RADIAL
[2022-04-07 05:51] LABS: Arterial Blood Gas PEEP 10 cmH2O; Arterial Blood Gas Vent Mode CMV; Arterial Blood Gas Ventilator rate 24 /MIN; Device VENTILATOR
[2022-04-07 05:51] LABS: Partial Thromboplastin Time 74.8 SECONDS (22.3-36.8)
[2022-04-07 05:52] LABS: Arterial Blood Gas Tidal Volume 450 ml
[2022-04-07 06:01] LABS: Alanine Aminotransferase 65 U/L (6-50); Albumin Level 3.2 g/dL (3.5-5.1); Alkaline Phosphatase 74 U/L (38-126); Anion Gap 11 mmol/L (8-16); Aspartate Amino Transferase 63 U/L (17-59); Bilirubin,Total 0.6 mg/dL (0.2-1.3); Blood Urea Nitrogen 95 mg/dL (9-20); Calcium 8.4 mg/dL (8.4-10.2); Carbon Dioxide 28 mmol/L (22-30); Chloride 93 mmol/L (98-107); Estimated CRCL calculation 11 ml/min; Estimated Glomerular Filt Rate 8; Glucose 150 mg/dL (65-110); Magnesium 2.6 mg/dL (1.6-2.3); Phosphorus 6.7 mg/dL (2.5-4.5); Potassium 4.4 mmol/L (3.4-5.0); Sodium 132 mmol/L (137-145)
[2022-04-07] MEDS: METOCLOPRAMIDE HCL 10 MG/10 ML SOLN UDC PO (06:23)
[2022-04-07] MEDS: dexmedeTOMIDine 400 MCG/100 ML 400 MCG/100 ML BAG 16.23 MCG IV CONT (06:28)
[2022-04-07] MEDS: CENTRAL LINE FLUSH 10 ML IV PUSH ×3 (06:28→21:34)
[2022-04-07] MEDS: levETIRAcetam 500MG/NACL 100ML 500 MG/100 ML BAG 400 MG IVPB (09:33)
[2022-04-07] MEDS: MINERAL OIL/WHITE PETROLATUM OINTMENT 1 APPLIC EACH EYE (09:34)
[2022-04-07] MEDS: PANTOPRAZOLE SODIUM IV 40 MG VIAL IV PUSH (09:35)
[2022-04-07] MEDS: CLOPIDOGREL BISULFATE 75 MG TABLET PO (09:35)
--- NOTE | 2022-04-07 09:47 | P.PNCROSS_ITS ---
Event Note Event Note Event Note: discussed with Dr Wilkerson yesterday afternoon. pt is on comfort measures so Re nal will sign off.
[2022-04-07 12:34] LABS: Glucose Point of Care 141 mg/dl (65-105)
[2022-04-07] MEDS: LORazepam INJ (*CRX) 2 MG/ML VIAL IV PUSH ×3 (13:29→16:55)
[2022-04-07] MEDS: MORPHINE SULFATE INJ (*CRX) 10 MG/ML AMP 5 MG IV PUSH ×2 (13:29→16:22)
[2022-04-07] MEDS: MORPHINE SULFATE (*CRX) 2 MG/ML INJ IV PUSH (15:01)
--- NOTE | 2022-04-07 17:25 | PC.NURSE ---
This patient, oRd Joyce, was transferred to [facility] on 04/07/22 at 1700. Personal belongings sent with patient. Report given to Ale GILES. Appropriate documentation sent with patient.
[2022-04-07] MEDS: ATROPINE SULFATE 1% OPHTH SOLN 5 ML BOTTLE 1 DROP SUBLINGUAL ×2 (18:54→21:33)
[2022-04-07] MEDS: MORPHINE SULFATE INJ (*CRX) 50 MG in SODIUM CHLORIDE 0.9% IV 95 ML IV CONT (19:26)
--- NOTE | 2022-04-08 01:40 | PC.NURSE ---
Making rounds found pt with no respirations and no heart beat. Daughters at bedside. Morphine drip stopped. Principal Data Architect notified.
--- NOTE | 2022-04-08 03:10 | PC.NURSE ---
0300 body to morgue per cart and placed in cooler. [facility] will reach out to family for donation request. family does not know home at this time, but will call hospital in am with information.
--- NOTE | 2022-04-08 09:14 | PM.DDS ---
Discharge Summary Date and Time Date of : 04/08/22 Time of : 01:35 Provider Pronounced By: America Palmer RN Probable Cause of Probable Cause of : Acute respiratory failure Summary Hospital Course: patient remains on ventilator, patient is off propofol and precedex and still does not response to pain stimuli, on 04/03 stone setter had a long discussion with the patient's sister recommending trach and possibly transfer patient to LTAC, stone setter concern about the prognosis and patient's quality of life, again spoke with stone setter, no word from family , on 04/05? patient? received? HD, patient hypoxic and was placed on prone position,? patient on 04/08/2022 secondary acute respiratory failure, acute kidney disease with hemodialysis and cardiomyopathy moderately is reduced cardiac ejection fraction, and patient went into [facility] with elevated INR of 6.8. Additional Data Confirmation of as documented by pronouncing clinician: Pupillary Reflex, Palpable Pulses, Response to Stimuli, Heart Tones and Breath Sounds Name of Provider Notified: Dr. Aby Odom Time Provider Notified: 01:42 Provider Requests Autopsy: No Family Requests Autopsy: No Powder And [employer] Canning Leader Notified: Yes Date [facility] Notified of : 04/08/22 Time [facility] Notified of : 01:58
== END 2022-04-08 01:35 | disposition expired | DRG 870 ==
LOC: ANHED 23:59 → ANHIMU 03-26 02:40 → ANHICU 03-27 01:05 → ANH3MED 04-07 17:17
PROVIDERS: Internal Medicine; Internal Medicine Nephrology; Physician Assistant; Admitting Provider Internal Medicine; Emergency Provider Emergency Medicine; PCP Internal Medicine; Visit Provider Family Medicine
DX: A41.9 Sepsis, unspecified organism; I50.23 Acute on chronic systolic (congestive) heart failure; J96.01 Acute respiratory failure with hypoxia; D65 Disseminated intravascular coagulation [defibrination syndrome]; I48.92 Unspecified atrial flutter; T80.818A Extravasation of other vesicant agent, initial encounter; I42.9 Cardiomyopathy, unspecified; D68.9 Coagulation defect, unspecified; E87.4 Mixed disorder of acid-base balance; M62.82 Rhabdomyolysis; N17.9 Acute kidney failure, unspecified; I46.9 Cardiac arrest, cause unspecified; R57.0 Cardiogenic shock; I48.91 Unspecified atrial fibrillation; I11.0 Hypertensive heart disease with heart failure; I25.10 Atherosclerotic heart disease of native coronary artery without angina pectoris; R00.0 Tachycardia, unspecified; R79.89 Other specified abnormal findings of blood chemistry; E11.9 Type 2 diabetes mellitus without complications; I34.0 Nonrheumatic mitral (valve) insufficiency; D50.9 Iron deficiency anemia, unspecified; R56.9 Unspecified convulsions; Z66 Do not resuscitate; Z20.822 Contact with and (suspected) exposure to COVID-19; Z79.01 Long term (current) use of anticoagulants; Z79.899 Other long term (current) drug therapy; Z86.73 Personal history of transient ischemic attack (TIA), and cerebral infarction without residual deficits; Z87.891 Personal history of nicotine dependence; Z91.14 Patient's other noncompliance with medication regimen; Z95.5 Presence of coronary angioplasty implant and graft
CPT/HCPCS: 31500; 36415; 36569; 36600; 70450; 71045; 71250; 76775; 80048; 80053; 80069; 80202; 82375; 82533; 82550; 82570; 82728; 82805; 82948; 83050; 83540; 83550; 83605; 83735; 83880; 84100; 84145; 84300; 84443; 84484; 85025; 85027; 85055; 85384; 85610; 85730; 86706; 87040; 87070; 87205; 87340; 92950; 93005; 93306; 93308; 94002; 94003; 94640; 95816; 96361; 96365; 96366; 96367; 96368; 96375; 96376; 99285; A9270; C1751; C1752; C8924; C9113; C9803; G0257; G0378; J0171; J0282; J0610; J0692; J1644; J1720; J1815; J1940; J1953; J2060; J2250; J2270; J2704; J2760; J3010; J3370; J3430; J7030; J7120; J7168; P9047; Q5105; Q9957; U0003; U0005